=== PATIENT | female | born 1970 | race Caucasian/White ===

== ENCOUNTER → 2016-02-29 | Outpatient (CLI) | payer OTHER ==
--- NOTE | 2016-02-29 14:02 | RAD ---
EXAM DESCRIPTION: XR ANKLE 3 OR MORE VIEWS CLINICAL HISTORY: 45 y/o ,F, PAIN IN RIGHT ANKLE AND JOINTS OF RIGHT FOOT COMPARISON: None. IMPRESSION: Three views right ankle demonstrate ORIF of medial and lateral malleoli fractures. Hardware is stable in position. There may be osteolysis verses Mach effect surrounding the medial malleolus screws. This will be followed on subsequently ordered studies. Electronically signed by: Hussein Hauser MD 02/29/2016 14:01
--- NOTE | 2016-02-29 14:48 | RAD ---
EXAM DESCRIPTION: XR ANKLE 3 OR MORE VIEWS CLINICAL HISTORY: 45 y/o ,F, FX OF ANKLE,POST CAST REMOVAL COMPARISON: Casting views from same day IMPRESSION: Casting material has been removed. ORIF of bilateral malleoli. The Mach effect surrounding the medial malleoli screws have resolved. No evidence of osteolysis. Minimal periostitis about the medial malleolus. All fractures have healed. No evidence of degenerative change of the subtalar joint or tibiotalar joint. Electronically signed by: Hussein Hauser MD 02/29/2016 14:46
== END ==
LOC: RAD 07:53
PROVIDERS: ATTEND Orthopaedic Surgery
DX: S82.91XD Unspecified fracture of right lower leg, subsequent encounter for closed fracture with routine healing (principal); M25.571 Pain in right ankle and joints of right foot; Z09 Encounter for follow-up examination after completed treatment for conditions other than malignant neoplasm

== ENCOUNTER → 2016-03-12 | Outpatient (CLI) | payer OTHER ==
--- NOTE | 2016-03-12 09:53 | RAD ---
EXAM DESCRIPTION: XR ANKLE 3 OR MORE VIEWS CLINICAL HISTORY: 45 y/o ,F, FX COMPARISON: February 29, 2016 IMPRESSION: ORIF of bilateral malleoli fractures. Hardware is in appropriate position. No evidence of hardware failure. Ankle mortise and syndesmosis are intact. Electronically signed by: Hussein Hauser MD 03/12/2016 09:52
== END ==
LOC: RAD 07:41
PROVIDERS: ATTEND Orthopaedic Surgery
DX: S82.91XD Unspecified fracture of right lower leg, subsequent encounter for closed fracture with routine healing (principal)

== ENCOUNTER → 2016-03-27 | Outpatient (CLI) | payer OTHER ==
--- NOTE | 2016-03-27 09:13 | RAD ---
EXAM DESCRIPTION: XR ANKLE 3 OR MORE VIEWS CLINICAL HISTORY: FX COMPARISON: March 12, 2016 FINDINGS: Again seen are postoperative changes in the medial malleolus and distal right fibula, unchanged from the prior study. No hardware complication is identified. There are old healed medial and lateral malleolar fractures. There is a questionable healed or healing posterior malleolar fracture, but this could also be related to superimposition artifact. The tibiotalar joint space and talar dome are well maintained. No new fracture or other significant interval change. IMPRESSION: Uncomplicated postoperative changes in the right ankle with old healed or healing right ankle fractures as detailed above. No new abnormality or other significant interval change. Electronically signed by: Everton Eastman DO 03/27/2016 09:11
== END | disposition home or self-care (01) ==
LOC: RAD 07:48
PROVIDERS: ATTEND Orthopaedic Surgery
DX: S82.91XD Unspecified fracture of right lower leg, subsequent encounter for closed fracture with routine healing (principal)

== ENCOUNTER 2016-04-03 16:32 | Emergency (ER) | payer OTHER ==
[2016-04-03 16:53] VITALS: TEMP 99.1
[2016-04-03] MEDS ORDERED: LACTATED RINGERS 1,000 ML IVS ONE (17:24)
--- NOTE | 2016-04-03 17:24 | ED.PDOC ---
History of Present Illness - General Chief Complaint: GI Problem Stated Complaint: diarrhea, RLE pain Time Seen by Provider: 04/03/16 16:40 Information Source: patient, RN notes reviewed Exam Limitations: no limitations - History of Present Illness Initial Comments: She stated that she ate pizza 4 days ago in [place] a day later she started having watery diarrhea which she stated not better despite imodium.No fever no vomiting no ill contact. Also with right sided abdominal pain. Pain Radiation: no radiation Quality: cramping Timing/Duration: other - 4 days ago Improving Factors: nothing Worsening Factors: nothing Associated Symptoms: denies symptoms Review of Systems - Review of Systems Constitutional: States: no symptoms reported EENTM: States: no symptoms reported Respiratory: States: no symptoms reported Cardiology: States: no symptoms reported Gastrointestinal/Abdominal: States: see HPI Genitourinary: States: no symptoms reported Musculoskeletal: States: no symptoms reported Skin: States: no symptoms reported Neurological: States: no symptoms reported Endocrine: States: no symptoms reported Hematologic/Lymphatic: States: no symptoms reported Past Medical History (General) - Patient Medical History Hx Other PMH: Yes - bipolar,fbromyalgia,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,endometrios - Vaccination History Hx Tetanus, Diphtheria Vaccination: No Hx Influenza Vaccination: No Hx Pneumococcal Vaccination: No - Social History Hx Tobacco Use: Yes Hx Alcohol Use: No Hx Substance Use: No Hx Substance Use Treatment: No Hx Depression: No - Activities of Daily Living Hospice Agency (if applicable):: None - Female History Patient is a Female of Child Bearing Age (10 -59 yrs old): No Patient : No Family Medical History - Family History Mother Family History: Unknown Hx Family Hypertension: Yes Hx Cardiac Disease: Yes Hx Family Cancer: Yes - thyroid-sister Physical Exam - Physical Exam General Appearance: Alert, Comfortable, No apparent distress Eyes, Ears, Nose, Throat Exam: PERRL/EOMI, normal ENT inspection, TMs normal Neck: non-tender, full range of motion, supple, normal inspection Respiratory: chest non-tender, lungs clear, normal breath sounds, no respiratory distress Cardiovascular/Chest: normal peripheral pulses, regular rate, rhythm, no edema, no gallop, no murmur Peripheral Pulses: No deficit Gastrointestinal/Abdominal: normal bowel sounds, non tender, soft, no organomegaly Back Exam: normal inspection, no CVA tenderness, no vertebral tenderness Extremity: normal range of motion, non-tender, normal inspection Neurologic: alert, normal mood/affect, oriented x 3 Skin Exam: normal color, warm/dry Lymphatic: no adenopathy Progress - Results/Orders Results/Orders: 04/03/16 17:24 Lactated Ringers [Lr] 1,000 ml IVS ONCE URINALYSIS Stat Laboratory Results WBC 6.9 K/mm3 (4.8-10.8) 04/03/16 17: RBC 4.22 M/mm3 (4.20-5.40) 04/03/16 17: Hgb 12.4 gm/dL (12.0-16.0) 04/03/16: Hct 38.5 % (36.0-47.0) 04/03/16: MCV 91.3 fl (81.0-99.0) 04/03/16: MCH 29.5 pg (27.0-31.0) 04/03/16: MCHC 32.3 g/dL (33.0-37.0) L 04/03/16: RDW 13.7 % (11.5-14.5) 04/03/16: Plt Count 268 K/mm3 (130-400) 04/03/16 17: MPV 8.7 fl (7.40-10.4) 04/03/16 17: Absolute Neuts (auto) 3.70 K/uL (1.8-6.8) 04/03/16: Absolute Lymphs (auto) 2.40 K/uL (1.0-3.4) 04/03/16 17: Absolute Monos (auto) 0.60 K/uL (0.2-0.8) 04/03/16: Absolute Eos (auto) 0.10 K/uL (0.0-0.4) 04/03/16: Absolute Basos (auto) 0.00 K/uL (0.0-0.1) 04/03/16 17: Neutrophils % 54.3 % (42.0-78.0) 04/03/16: Lymphocytes % 34.5 % (20.0-50.0) 04/03/16 17:24 Monocytes % 8.6 % (2.0-9.0) 04/03/16 17:24 Eosinophils % 2.2 % (1.0-5.0) 04/03/16 17:24 Basophils % 0.4 % (0.0-2.0) 04/03/16 17:24 Sodium 141 mmol/L (135-145) 04/03/16 17:24 Potassium 4.3 mmol/L (3.6-5.0) 04/03/16 17:24 Chloride 104 mmol/L (101-111) 04/03/16 17:24 Carbon Dioxide 30 mmol/L (21-31) 04/03/16 17:24 Anion Gap 11.3 (12-18) L 04/03/16 17:24 BUN 10 mg/dL (7-18) 04/03/16 17:24 Creatinine 0.67 mg/dL (0.6-1.3) 04/03/16 17:24 BUN/Creatinine Ratio 14.9 (10-20) 04/03/16 17:24 Random Glucose 102 mg/dL (70-105) 04/03/16 17:24 Serum Osmolality 280.5 mOsm/L (275-295) 04/03/16 17:24 Calcium 8.9 mg/dL (8.4-10.2) 04/03/16 17:24 Total Bilirubin 0.3 mg/dL (0.2-1.0) 04/03/16 17:24 AST 21 IU/L (10-42) 04/03/16 17:24 ALT 23 IU/L (10-60) 04/03/16 17:24 Alkaline Phosphatase 95 IU/L (42-121) 04/03/16 17:24 Serum Total Protein 7.0 gm/dL (6.4-8.2) 04/03/16 17:24 Albumin 4.2 g/dl (3.2-5.5) 04/03/16 17:24 Globulin 2.8 gm/dL (2.3-3.5) 04/03/16 17:24 Albumin/Globulin Ratio 1.5 (1.1-1.9) 04/03/16 17:24 Departure - Departure Clinical Impression: Diarrhea, Abdominal cramps Time of Disposition: 18:21 Disposition: Discharge to Home or Self Care Condition: Good Departure Forms: ED Discharge - Pt. Copy, Patient Portal Self Enrollment Instructions: Probiotics May Decrease Intensity and Duration of Diarrhea Due to Infection, Diarrhea Referrals: Agustina Nunez NP [Primary Care Provider] - 1-2 Weeks Prescriptions: Hyoscyamine Sulfate [Levsin] 0.125 mg PO Q6HRS PRN #30 tab PRN Reason: Diarrhea Home Medications: Ambulatory Orders Hyoscyamine Sulfate [Levsin] 0.125 mg PO Q6HRS PRN #30 tab 04/03/16 Lamotrigine [Lamictal] 200 mg PO DAILY 04/03/16 hydrOXYzine PAMOATE [Vistaril] 25 mg PO BID 04/03/16 Additional Instructions: FOLLOW UP WITH PRIMARY MD PATIENT NEED TO CALL FOR APPOINTMENT AVOID GREASY, SPICY FOODS UNTIL BETTER
[2016-04-03 18:36] VITALS: BP 144/87; O2SAT 98
== END 2016-04-03 18:35 | disposition home or self-care (01) ==
LOC: ER 16:32
DX: R19.7 Diarrhea, unspecified (principal); R10.9 Unspecified abdominal pain; F31.9 Bipolar disorder, unspecified; M79.7 Fibromyalgia; Z87.891 Personal history of nicotine dependence
CPT/HCPCS: 80053; 85025; J7120

== ENCOUNTER → 2016-04-10 | Outpatient (CLI) | payer OTHER ==
--- NOTE | 2016-04-10 10:23 | RAD ---
EXAM DESCRIPTION: Ankle,Right 3 Views CLINICAL HISTORY: 45 yearsFemale, right ankle pain, fracture. COMPARISON: None. IMPRESSION: Increasing soft tissue swelling about the ankle on today's study. No additional new findings on today's study. No evidence of right ankle fracture. No evidence of osteolysis or hardware failure. ORIF of the medial and lateral malleoli fractures. Electronically signed by: Hussein Hauser MD 04/10/2016 10:22 AM DUTY OFFICER
== END | disposition home or self-care (01) ==
LOC: RAD 07:33
PROVIDERS: ATTEND Orthopaedic Surgery
DX: S82.91XD Unspecified fracture of right lower leg, subsequent encounter for closed fracture with routine healing (principal)

== ENCOUNTER → 2016-04-28 | Outpatient (CLI) | payer OTHER ==
--- NOTE | 2016-04-28 09:19 | RAD ---
EXAM DESCRIPTION: Ankle,Right 3 Views CLINICAL HISTORY: FX COMPARISON: April 10, 2016 IMPRESSION: 3 views of the right ankle show lateral plate and screw fixation of a distal fibular fracture. No change in appearance of the hardware compared to previous exam. Fracture lines are not visible. 2 orthopedic screws fixating the medial malleolus are seen without evidence of hardware failure or obvious loosening. Evidence of healed fracture is noted. The degree of soft tissue swelling around the ankle is decreased from previous. Ankle mortise appears maintained. Probable healed fracture of the posterior distal tibia is again seen. Electronically signed by: Jose Tate MD 04/28/2016 9:18 AM CDT
== END | disposition home or self-care (01) ==
LOC: RAD 07:14
PROVIDERS: ATTEND Orthopaedic Surgery
DX: S82.301G Unspecified fracture of lower end of right tibia, subsequent encounter for closed fracture with delayed healing (principal)

== ENCOUNTER → 2016-05-12 | Outpatient (CLI) | payer OTHER ==
--- NOTE | 2016-05-12 08:30 | RAD ---
Study: Three views of the Right Ankle. Indication: FX Comparison: April 28, 2016. Impression: Stable postsurgical changes with suspected healed medial malleolar and distal fibular fractures. Small tibiotalar joint effusion. A healed fracture posterior malleolus noted. Mild osteopenia. Mild soft tissue swelling. Electronically signed by: Frederick Ladd MD 05/12/2016 8:29 AM CDT
== END | disposition home or self-care (01) ==
LOC: RAD 07:19
PROVIDERS: ATTEND Orthopaedic Surgery
DX: S82.91XD Unspecified fracture of right lower leg, subsequent encounter for closed fracture with routine healing (principal)

== ENCOUNTER → 2016-05-26 | Outpatient (CLI) | payer OTHER ==
--- NOTE | 2016-05-26 17:13 | MAM ---
History: Well woman exam. Date of exam: 05/26/2016 Services provided: Bilateral full field digital screening mammography. CAD, the images were reviewed with R2 computer aided detection. FINDINGS: Glandular tissue is scattered glandular contour with increased mammographic density. No prior study is currently available for comparison. Single view mammographic asymmetry axillary tail right breast has a nodular contour. No clustered microcalcifications or region of architectural distortion is noted. IMPRESSION: Incomplete study Recommendation: Additional views right breast with true lateral, axillary tail views and exaggerated lateral craniocaudal projection view. Directed ultrasound if indicated clinically. BIRAD CATEGORY: 0 INCOMPLETE Electronically signed by: Joanne Wu MD 05/26/2016 5:11 PM CDT
== END | disposition home or self-care (01) ==
LOC: MAMMO 09:20
PROVIDERS: ATTEND Nurse Practitioner Family
DX: Z12.31 Encounter for screening mammogram for malignant neoplasm of breast (principal)

== ENCOUNTER → 2016-05-27 | Outpatient (CLI) | payer OTHER | END | disposition home or self-care (01) | LOC: YCFC.O 07:17 | PROVIDERS: ATTEND Nurse Practitioner Family | DX: R19.7 Diarrhea, unspecified (principal) ==

== ENCOUNTER 2016-06-01 16:44 | Emergency (ER) | payer OTHER ==
[2016-06-01 16:58] VITALS: BP 135/81; TEMP 98.3; O2SAT 97
--- NOTE | 2016-06-01 17:07 | ED.PDOC ---
History of Present Illness - General Chief Complaint: Back Pain or Injury Stated Complaint: back pain Time Seen by Provider: 06/01/16 17:04 Source: patient, RN notes reviewed, Vital Signs reviewed Exam Limitations: no limitations - History of Present Illness Initial Comments: Patient reports 3 days ago she was getting down a heavy box of glasses and pulled a muscle under her right shoulder blade. Since then she has been having pain and muscle spasms. Pain is worse with movement and with deep breathing. Timing/Duration: days - 3 Quality/Severity: moderate, other - muscle spasm Back Pain Location: T-spine, paraspinous muscles Method of Injury/Prior Injury: twisted Improving Factors: rest Worsening Factors: movement Associated Symptoms: muscle spasms Allergies/Adverse Reactions: Allergies Clarithromycin [From Biaxin] Allergy (Verified 04/03/16 16:53) Home Medications: Ambulatory Orders Lamotrigine [Lamictal] 200 mg PO DAILY 04/03/16 hydrOXYzine PAMOATE [Vistaril] 25 mg PO BID 04/03/16 Cyclobenzaprine HCl [Flexeril] 5 mg PO Q8HRS PRN #12 tab 06/01/16 [place] Carbonate 300 mg PO BID 06/01/16 Naproxen [Naprosyn] 500 mg PO BID #40 tab 06/01/16 Paroxetine HCl [Paxil] 40 mg PO DAILY 06/01/16 Review of Systems - Review of Systems Constitutional: States: no symptoms reported Respiratory: States: no symptoms reported Cardiology: States: no symptoms reported Musculoskeletal: States: back pain, muscle pain - and spasm under her R shoulder blade Skin: States: no symptoms reported Neurological: States: no symptoms reported. Denies: numbness, paresthesia, tingling, weakness Past Medical History (General) - Patient Medical History Hx Congestive Heart Failure: No Hx Diabetes: No - Vaccination History Hx Tetanus, Diphtheria Vaccination: No Hx Influenza Vaccination: No Hx Pneumococcal Vaccination: No - Social History Hx Tobacco Use: Yes Hx Alcohol Use: No Hx Substance Use: No Hx Substance Use Treatment: No Hx Depression: No - Female History Patient : No Family Medical History - Family History Mother Family History: Unknown Hx Family Hypertension: Yes Hx Cardiac Disease: Yes Hx Family Cancer: Yes - thyroid-sister Physical Exam - Physical Exam General Appearance: Alert, Comfortable, No apparent distress, Well Developed, Well Groomed, Well Hydrated, Well Nourished Neck Exam: non-tender, full range of motion, normal alignment, normal inspection Cardiovascular/Respiratory: regular rate, rhythm, no M/R/G, normal breath sounds , no respiratory distress Back Exam: no CVA tenderness, no vertebral tenderness, muscle spasm - Right mid thoracic paraspinous muscles. Extremity Exam: no evidence of injury, normal range of motion Neurologic: no motor/sensory deficits, alert, normal mood/affect, oriented x 3 Skin Exam: normal color, warm/dry Comments: Vital Signs - 24 hr 06/01/16 16:54 Temperature 98.3 F Pulse Rate [ 96 H Left Brachial] Respiratory 20 Rate Blood Pressure 135/81 [Left Arm] O2 Sat by Pulse 97 Oximetry Progress - Progress Progress: 06/01/16 17:09 Will give IM dose of Toradol here and d/c home with Rx for flexeril and Naprosyn. Departure - Departure Clinical Impression: Strain of thoracic paraspinal muscles excluding T1 and T2 levels Qualifiers: Encounter type: initial encounter Qualified Code(s): S29.012A - Strain of muscle and tendon of back wall of thorax, initial encounter Time of Disposition: 17:10 Disposition: Discharge to Home or Self Care Condition: Good Departure Forms: ED Discharge - Pt. Copy, Patient Portal Self Enrollment Instructions: DI for Back Strain or Sprain Diet: resume usual diet Activity: increase activity as tolerated Referrals: Agustina Nunez NP [Primary Care Provider] - 1-2 Weeks Prescriptions: Cyclobenzaprine HCl [Flexeril] 5 mg PO Q8HRS PRN #12 tab PRN Reason: Muscle Spasms Naproxen [Naprosyn] 500 mg PO BID #40 tab Home Medications: Ambulatory Orders Lamotrigine [Lamictal] 200 mg PO DAILY 04/03/16 hydrOXYzine PAMOATE [Vistaril] 25 mg PO BID 04/03/16 Cyclobenzaprine HCl [Flexeril] 5 mg PO Q8HRS PRN #12 tab 06/01/16 [place] Carbonate 300 mg PO BID 06/01/16 Naproxen [Naprosyn] 500 mg PO BID #40 tab 06/01/16 Paroxetine HCl [Paxil] 40 mg PO DAILY 06/01/16
[2016-06-01] MEDS: KETOROLAC TROMETHAMINE INJ 60 MG/2 ML VIAL IM ONE (17:08)
== END 2016-06-01 17:31 | disposition home or self-care (01) ==
LOC: ER 16:44
DX: S29.012A Strain of muscle and tendon of back wall of thorax, initial encounter (principal); Z87.891 Personal history of nicotine dependence; Z79.899 Other long term (current) drug therapy; Z82.49 Family history of ischemic heart disease and other diseases of the circulatory system; Z88.8 Allergy status to other drugs, medicaments and biological substances; X50.0XXA Overexertion from strenuous movement or load, initial encounter; Y92.9 Unspecified place or not applicable

== ENCOUNTER → 2016-06-19 | Outpatient (CLI) | payer OTHER ==
--- NOTE | 2016-06-19 15:47 | MAM ---
History: Mammographic asymmetry on baseline study axillary tail right breast. DATE OF SERVICE: 06/19/2016 Services provided: Full field digital diagnostic right mammography. FINDINGS: True lateral, exaggerated lateral craniocaudal and axillary tail views are obtained and compared with baseline study from 05/26. Nodular glandular parenchymal pattern is demonstrated with accessory tissue in the axillary tail of the right breast. No persistent mammographic abnormality is noted corresponding to this area. IMPRESSION: Benign exam. No mammographic evidence for malignancy in the right breast. Recommendation: Routine annual mammography. Findings and recommendations were communicated to the patient. BIRAD CATEGORY: 2 BENIGN Electronically signed by: Joanne Wu MD 06/19/2016 3:47 PM CDT
== END | disposition home or self-care (01) ==
LOC: MAMMO 14:24
PROVIDERS: ATTEND Nurse Practitioner Family
DX: R92.8 Other abnormal and inconclusive findings on diagnostic imaging of breast (principal)

== ENCOUNTER → 2016-06-26 | Outpatient (CLI) | payer OTHER ==
--- NOTE | 2016-06-26 16:47 | RAD ---
EXAM DESCRIPTION: Ankle,Right 3 Views CLINICAL HISTORY: 45 years Female, CLOSED FX OF ANKLE COMPARISON: May 12, 2016 FINDINGS: Again seen are postoperative changes in the right ankle without apparent hardware complication. No fracture plane is visualized. The tibiotalar joint space and talar dome are well-maintained. There is a possible small right ankle joint effusion. IMPRESSION: Uncomplicated postoperative changes in the right ankle with a possible small right ankle joint effusion. Electronically signed by: Everton Eastman MD 06/26/2016 4:47 PM CDT
== END | disposition home or self-care (01) ==
LOC: RAD 09:50
PROVIDERS: ATTEND Orthopaedic Surgery
DX: S82.91XD Unspecified fracture of right lower leg, subsequent encounter for closed fracture with routine healing (principal)

== ENCOUNTER 2016-08-31 16:13 | Emergency (ER) | payer OTHER ==
[2016-08-31] MEDS ORDERED: MEROPENEM 1 GM in SODIUM CHL 0.9% 50ML MIN-BAG+ 50 ML IVPB ONE (16:29)
--- NOTE | 2016-08-31 16:39 | ED.PDOC ---
History of Present Illness - General Chief Complaint: Dental/Mouth Stated Complaint: toohache/gum selling Time Seen by Provider: 08/31/16 16:25 Source: patient Exam Limitations: no limitations - History of Present Illness Initial Comments: Shannon Caldwell 45 y/o female with multiple decayed teeth seen today with tooth ache and stating gums starting to swell and painful. Timing/Duration: other - 4 days ago Severity: moderate EENT Location: dental Prearrival Treatment: no prearrival treatment Improving Factors: nothing Worsening Factors: other - chewing Associated Symptoms: tooth pain Allergies/Adverse Reactions: Allergies Clarithromycin [From Biaxin] Allergy (Verified 04/03/16 16:53) Home Medications: Ambulatory Orders Lamotrigine [Lamictal] 200 mg PO DAILY 04/03/16 hydrOXYzine PAMOATE [Vistaril] 25 mg PO BID 04/03/16 Cyclobenzaprine HCl [Flexeril] 5 mg PO Q8HRS PRN #12 tab 06/01/16 [place] Carbonate 300 mg PO BID 06/01/16 Naproxen [Naprosyn] 500 mg PO BID #40 tab 06/01/16 Paroxetine HCl [Paxil] 40 mg PO DAILY 06/01/16 Amoxicillin [Amoxil] 1,000 mg PO BID #30 cap 08/31/16 Tramadol HCl [Tramadol HCl ER] 100 mg PO TID #10 cap 08/31/16 Review of Systems - Review of Systems Constitutional: States: no symptoms reported EENTM: States: see HPI Respiratory: States: no symptoms reported Cardiology: States: no symptoms reported Gastrointestinal/Abdominal: States: no symptoms reported Genitourinary: States: no symptoms reported Musculoskeletal: States: no symptoms reported Skin: States: no symptoms reported Neurological: States: no symptoms reported Past Medical History (General) - Patient Medical History Hx Congestive Heart Failure: No Hx Diabetes: No - Vaccination History Hx Tetanus, Diphtheria Vaccination: No Hx Influenza Vaccination: No Hx Pneumococcal Vaccination: No - Social History Hx Tobacco Use: Yes Hx Alcohol Use: No Hx Substance Use: No Hx Substance Use Treatment: No Hx Depression: No - Female History Patient : No Family Medical History - Family History Mother Family History: Unknown Hx Family Asthma: Yes - copd-mom Hx Family Hypertension: Yes - sister Hx Cardiac Disease: Yes Hx Family Cancer: Yes - thyroid-sister Physical Exam - Physical Exam General Appearance: Alert, Comfortable, No apparent distress Eye Exam: bilateral normal Ear Exam: bilateral ear: auricle normal, canal normal, TM normal Nasal Exam: normal inspection Throat Exam: normal mouth inspection, dental tenderness, other - multiple decayed teeth incisors Neck: non-tender, full range of motion, supple Cardiovascular/Respiratory: regular rate, rhythm, no M/R/G, normal peripheral pulses, normal breath sounds Abdominal Exam: non-tender, no organomegaly Neurologic: alert, oriented x 3 Skin Exam: normal color, warm/dry Departure - Departure Clinical Impression: Dental caries extending into pulp, Gingival and periodontal disease Time of Disposition: 16:42 Disposition: Discharge to Home or Self Care Condition: Good Instructions: DI for Tooth Decay Diet: other - soft diet until better Referrals: Agustina Nunez NP [Primary Care Provider] - 1-2 Weeks Prescriptions: Amoxicillin [Amoxil] 1,000 mg PO BID #30 cap Tramadol HCl [Tramadol HCl ER] 100 mg PO TID #10 cap Home Medications: Ambulatory Orders Lamotrigine [Lamictal] 200 mg PO DAILY 04/03/16 hydrOXYzine PAMOATE [Vistaril] 25 mg PO BID 04/03/16 Cyclobenzaprine HCl [Flexeril] 5 mg PO Q8HRS PRN #12 tab 06/01/16 [place] Carbonate 300 mg PO BID 06/01/16 Naproxen [Naprosyn] 500 mg PO BID #40 tab 06/01/16 Paroxetine HCl [Paxil] 40 mg PO DAILY 06/01/16 Amoxicillin [Amoxil] 1,000 mg PO BID #30 cap 08/31/16 Tramadol HCl [Tramadol HCl ER] 100 mg PO TID #10 cap 08/31/16 Additional Instructions: NEED TO MAKE APPOINTMENT WITH [facility] [place] [address] phone [phone]
[2016-08-31] MEDS ORDERED: CLINDAMYCIN PHOSPHATE 150 MG/ML VIAL IM ONE (16:56)
[2016-08-31] MEDS ORDERED: CLINDAMYCIN HCL CAP 150 MG CAP PO ONE (16:56)
[2016-08-31 17:43] VITALS: TEMP 98.9
[2016-08-31 17:47] VITALS: BP 148/68; O2SAT 94
== END 2016-08-31 17:39 | disposition home or self-care (01) ==
LOC: ER 16:13
DX: K02.9 Dental caries, unspecified (principal); K06.9 Disorder of gingiva and edentulous alveolar ridge, unspecified; Z87.891 Personal history of nicotine dependence; Z88.8 Allergy status to other drugs, medicaments and biological substances; Z79.899 Other long term (current) drug therapy

== ENCOUNTER 2016-10-21 16:12 | Emergency (ER) | payer OTHER ==
--- NOTE | 2016-10-21 16:42 | ED.PDOC ---
History of Present Illness - General Chief Complaint: Neck Injury/Pain Stated Complaint: Injury 1 month ago, now having neck/head/back pain Time Seen by Provider: 10/21/16 16:42 Source: patient Exam Limitations: no limitations - History of Present Illness Initial Comments: Shannon Caldwell 45 y/o female stated that she had dull left sided neck pains after she threw a heavy trash bag backwards on the trash bin at work one month ago and could not remember date.and since then having above symptoms taking nsaids, and icy hot.Denies bowel or bladder dysfunction non radiating. Timing/Duration: constant - able to tolerate and go to work, other - 4 weeks Severity: moderate Improving Factors: movement Worsening Factors: rest Associated Symptoms: denies symptoms Allergies/Adverse Reactions: Allergies Clarithromycin [From Biaxin] Allergy (Verified 08/31/16 17:47) Vomitting Home Medications: Ambulatory Orders Lamotrigine [Lamictal] 200 mg PO DAILY 04/03/16 hydrOXYzine PAMOATE [Vistaril] 25 mg PO BID 04/03/16 Cyclobenzaprine HCl [Flexeril] 5 mg PO Q8HRS PRN #12 tab 06/01/[address] [place] Carbonate 300 mg PO BID 06/01/16 Naproxen [Naprosyn] 500 mg PO BID #40 tab 06/01/16 Paroxetine HCl [Paxil] 40 mg PO DAILY 06/01/16 Amoxicillin [Amoxil] 1,000 mg PO BID #30 cap 08/31/16 Tramadol HCl [Tramadol HCl ER] 100 mg PO TID #10 cap 08/31/16 Methocarbamol [Robaxin] 750 mg PO BID #20 tab 10/21/16 Review of Systems - Review of Systems Constitutional: States: no symptoms reported EENTM: States: no symptoms reported Respiratory: States: no symptoms reported Cardiology: States: no symptoms reported Gastrointestinal/Abdominal: States: no symptoms reported Genitourinary: States: no symptoms reported Musculoskeletal: States: see HPI Past Medical History (General) - Patient Medical History Hx Stroke: No Hx Congestive Heart Failure: No Hx Diabetes: No Surgical History: other - ankle - Vaccination History Hx Tetanus, Diphtheria Vaccination: No Hx Influenza Vaccination: No Hx Pneumococcal Vaccination: No - Social History Hx Tobacco Use: Yes Hx Alcohol Use: No Hx Substance Use: No Hx Substance Use Treatment: No Hx Depression: No - Female History Hx Last Menstrual Period: 10/10/16 Patient : No Family Medical History - Family History Mother Family History: Unknown Living Status: Hx Family Asthma: Yes - copd-mom Hx Family Hypertension: Yes - sister Hx Cardiac Disease: Yes Hx Family Cancer: Yes - thyroid-sister Physical Exam - Physical Exam General Appearance: Alert, Anxious, No apparent distress Eye Exam: bilateral normal Ears, Nose, Throat: hearing grossly normal, normal ENT inspection Neck: limited range of motion - left lateral flexion -muscle spasm, other - no midline tenderness Respiratory: chest non-tender, lungs clear Cardiovascular/Chest: normal peripheral pulses, regular rate, rhythm, no murmur Peripheral Pulses: radial,right: 1+, radial,left: 1+ Gastrointestinal/Abdominal: normal bowel sounds, non tender, soft, no organomegaly Back Exam: no CVA tenderness, no vertebral tenderness Extremity: no pedal edema, no calf tenderness Neurologic: no motor/sensory deficits, alert, oriented x 3 Skin Exam: normal color, warm/dry Lymphatic: no adenopathy Progress - EKG/XRAY/CT XRAY: c-spine - degenerative changes c-spine Departure - Departure Clinical Impression: Neck pain on left side, Muscle spasm Time of Disposition: 17:35 Disposition: Discharge to Home or Self Care Condition: Good Departure Forms: ED Discharge - Pt. Copy, Patient Portal Self Enrollment Instructions: DI for Neck Pain Referrals: Agustina Nunez NP [Primary Care Provider] - 1-2 Weeks Prescriptions: Methocarbamol [Robaxin] 750 mg PO BID #20 tab Home Medications: Ambulatory Orders Lamotrigine [Lamictal] 200 mg PO DAILY 04/03/16 hydrOXYzine PAMOATE [Vistaril] 25 mg PO BID 04/03/16 Cyclobenzaprine HCl [Flexeril] 5 mg PO Q8HRS PRN #12 tab 06/01/[address] [place] [address] Carbonate 300 mg PO BID 06/01/16 Naproxen [Naprosyn] 500 mg PO BID #40 tab 06/01/16 Paroxetine HCl [Paxil] 40 mg PO DAILY 06/01/16 Amoxicillin [Amoxil] 1,000 mg PO BID #30 cap 08/31/16 Tramadol HCl [Tramadol HCl ER] 100 mg PO TID #10 cap 08/31/16 Methocarbamol [Robaxin] 750 mg PO BID #20 tab 10/21/16 Additional Instructions: Follow up with primary md 2016 call for appointment; May take ALEVE(over the counter) one tablet 3x a day as needed for pain
[2016-10-21] MEDS ORDERED: ORPHENADRINE CITRATE 30 MG/ML AMP IM ONE (16:57)
[2016-10-21] MEDS ORDERED: KETOROLAC TROMETHAMINE INJ 30 MG/ML VIAL IM ONE (16:57)
--- NOTE | 2016-10-21 17:21 | RAD ---
EXAM DESCRIPTION: Cervical Spine,3 Views CLINICAL HISTORY: 45 years Female, pain COMPARISON: None. FINDINGS: Three views of the cervical spine demonstrate normal alignment with mild degenerative spurring anteriorly and mild facet arthropathy. No fracture or dislocation or soft tissue swelling is seen. No cervical ribs are noted in the apical pulmonary regions are normal. IMPRESSION: Mild degenerative changes of the cervical spine. Electronically signed by: Peter Blanco MD 10/21/2016 5:19 PM CDT
[2016-10-21 17:39] VITALS: O2SAT 100
[2016-10-21 17:53] VITALS: BP 139/85; TEMP 98.4
== END 2016-10-21 17:51 | disposition home or self-care (01) ==
LOC: ER 16:12
DX: M54.2 Cervicalgia (principal); M62.838 Other muscle spasm; Z87.891 Personal history of nicotine dependence; Z88.3 Allergy status to other anti-infective agents; Z79.899 Other long term (current) drug therapy
CPT/HCPCS: 72040; J1885; J2360

== ENCOUNTER 2016-10-30 07:21 | Emergency (ER) | payer OTHER ==
[2016-10-30 07:55] VITALS: BP 128/85; TEMP 98.8; O2SAT 86
--- NOTE | 2016-10-30 08:00 | ED.PDOC ---
History of Present Illness - General Chief Complaint: Neck Injury/Pain Stated Complaint: left neck pain Time Seen by Provider: 10/30/16 07:29 Source: patient Exam Limitations: no limitations - History of Present Illness Initial Comments: the patientis a 45-year-old female presenting to the emergency room secondary to persistent left neck pain since 3 weeks ago The patient was seen a couple of weeks ago and had a x-ray of her cervical spine which was essentially normal. The patient has had some persistent left lateral posterior neck discomfort extending down to her shoulder. It is worse at night when she is not moved. She has been getting some mild tension headaches. She reports that she has been doing some stretching exercises. She reports anti- inflammatories don't help very much. No focal neurological changes. The initiating injury was more of a strain injury rather than a blunt trauma. No paresthesias down the left arm. No incontinence. No weakness. Timing/Duration: unsure Severity: mild Improving Factors: nothing Worsening Factors: movement Associated Symptoms: denies symptoms Allergies/Adverse Reactions: Allergies Clarithromycin [From Biaxin] Allergy (Verified 08/31/16 17:47) Vomitting Home Medications: Ambulatory Orders Lamotrigine [Lamictal] 200 mg PO DAILY 04/03/16 hydrOXYzine PAMOATE [Vistaril] 25 mg PO BID 04/03/16 Cyclobenzaprine HCl [Flexeril] 5 mg PO Q8HRS PRN #12 tab 06/01/16 [place] Carbonate 300 mg PO BID 06/01/16 Naproxen [Naprosyn] 500 mg PO BID #40 tab 06/01/16 Paroxetine HCl [Paxil] 40 mg PO DAILY 06/01/16 Amoxicillin [Amoxil] 1,000 mg PO BID #30 cap 08/31/16 Tramadol HCl [Tramadol HCl ER] 100 mg PO TID #10 cap 08/31/16 Methocarbamol [Robaxin] 750 mg PO BID #20 tab 10/21/16 Cyclobenzaprine HCl [Flexeril] 10 mg PO Q8HR PRN #20 tab 10/30/16 Review of Systems - Review of Systems Constitutional: States: no symptoms reported EENTM: States: no symptoms reported Respiratory: States: no symptoms reported Cardiology: States: no symptoms reported Gastrointestinal/Abdominal: States: no symptoms reported Genitourinary: States: no symptoms reported Musculoskeletal: States: neck pain Skin: States: no symptoms reported Neurological: States: headache Endocrine: States: no symptoms reported Hematologic/Lymphatic: States: no symptoms reported Past Medical History (General) - Patient Medical History Hx Stroke: No Hx Congestive Heart Failure: No Hx Diabetes: No Hx MRSA: Yes - Wound Infection, now healed - Vaccination History Hx Tetanus, Diphtheria Vaccination: No Hx Influenza Vaccination: No Hx Pneumococcal Vaccination: No - Social History Hx Tobacco Use: Yes Hx Chewing Tobacco Use: No Hx Alcohol Use: No Hx Substance Use: No Hx Substance Use Treatment: No Hx Depression: No Hx Physical Abuse: No Hx Emotional Abuse: No Hx Suspected Abuse: No - Female History Hx Last Menstrual Period: 10/10/16 Patient : No Family Medical History - Family History Mother Family History: Unknown Living Status: Hx Family Asthma: Yes - copd-mom Hx Family Hypertension: Yes - sister Hx Cardiac Disease: Yes Hx Family Cancer: Yes - thyroid-sister Physical Exam - Physical Exam General Appearance: Alert, Comfortable, No apparent distress Eye Exam: bilateral normal Ears, Nose, Throat: normal ENT inspection Neck: full range of motion, other - ild discomfort on palpation along the line of the left trapezius muscle superiorly. No gross deformity. No spinous process tenderness to palpation or step off. No bruising. Respiratory: no respiratory distress, no accessory muscle use Cardiovascular/Chest: normal peripheral pulses, no edema Peripheral Pulses: radial,right: 2+, radial,left: 2+, dorsalis pedis,right: 2+, dorsalis pedis,left: 2+ Gastrointestinal/Abdominal: non tender, soft Rectal Exam: deferred Back Exam: normal inspection, no CVA tenderness, no vertebral tenderness Extremity: normal range of motion, non-tender, normal inspection, no pedal edema , normal capillary refill Neurologic: ignition mechanic II-XII nml as tested, no motor/sensory deficits, alert, normal mood/affect, oriented x 3 Skin Exam: normal color Comments: Vital Signs - 24 hr 10/30/16 07:25 Temperature 98.8 F Pulse Rate [ 86 pulse ox] Respiratory 20 Rate Blood Pressure 128/85 [left brachial] O2 Sat by Pulse 86 L Oximetry Progress - Progress Progress: 10/30/16 08:01 the patient is a 45-year-old female with a left trapezius strain. She needs to do stretching exercises. Topical heat in the form of a heat pad or icy hot or Biofreeze may help. She can change to Aleve 2 tablets twice daily with food. She'll be written for Flexeril as needed for the next week. ER warnings were given. She should follow up for this with her primary care doctor next week. Departure - Departure Clinical Impression: Myofascial pain on left side Disposition: Discharge to Home or Self Care Condition: Fair Departure Forms: ED Discharge - Pt. Copy, Patient Portal Self Enrollment Instructions: DI for Neck Pain Diet: regular diet Activity: increase activity as tolerated Referrals: Agustina Nunez NP [Primary Care Provider] - 1-2 Weeks Prescriptions: Cyclobenzaprine HCl [Flexeril] 10 mg PO Q8HR PRN #20 tab PRN Reason: Muscle Spasms Home Medications: Ambulatory Orders Lamotrigine [Lamictal] 200 mg PO DAILY 04/03/16 hydrOXYzine PAMOATE [Vistaril] 25 mg PO BID 04/03/16 Cyclobenzaprine HCl [Flexeril] 5 mg PO Q8HRS PRN #12 tab 06/01/16 [place] Carbonate 300 mg PO BID 06/01/16 Naproxen [Naprosyn] 500 mg PO BID #40 tab 06/01/16 Paroxetine HCl [Paxil] 40 mg PO DAILY 06/01/16 Amoxicillin [Amoxil] 1,000 mg PO BID #30 cap 08/31/16 Tramadol HCl [Tramadol HCl ER] 100 mg PO TID #10 cap 08/31/16 Methocarbamol [Robaxin] 750 mg PO BID #20 tab 10/21/16 Cyclobenzaprine HCl [Flexeril] 10 mg PO Q8HR PRN #20 tab 10/30/16 Additional Instructions: the patient is a 45-year-old female with a left trapezius strain. She needs to do stretching exercises. Topical heat in the form of a heat pad or icy hot or Biofreeze may help. She can change to Aleve 2 tablets twice daily with food. She'll be written for Flexeril as needed for the next week. ER warnings were given. She should follow up for this with her primary care doctor next week.
== END 2016-10-30 08:12 | disposition home or self-care (01) ==
LOC: ER 07:21
DX: M54.2 Cervicalgia (principal); Z86.14 Personal history of Methicillin resistant Staphylococcus aureus infection; Z88.8 Allergy status to other drugs, medicaments and biological substances; Z79.899 Other long term (current) drug therapy; Z87.891 Personal history of nicotine dependence

== ENCOUNTER 2016-11-03 22:14 | Emergency (ER) | payer OTHER ==
[2016-11-03 22:31] VITALS: O2SAT 100
[2016-11-03] MEDS: KETOROLAC TROMETHAMINE INJ 60 MG/2 ML VIAL IM ONE (22:53)
[2016-11-03] MEDS: CYCLOBENZAPRINE HCL 10 MG TAB PO ONE (22:53)
[2016-11-03] MEDS: methylPREDNISolone SODIUM SUC 125 MG/2 ML VIAL IM ONE (22:53)
--- NOTE | 2016-11-03 22:55 | ED.PDOC ---
History of Present Illness - General Chief Complaint: Neck Injury/Pain Stated Complaint: neck pain Time Seen by Provider: 11/03/16 22:36 Source: patient, RN notes reviewed, Vital Signs reviewed Exam Limitations: no limitations - History of Present Illness Initial Comments: Patient comes in with c/o of L neck pain. This is her 3rd ER visit for neck pain. Reports it improved with muscle relaxers but then worsens again. Originally saw her PCP when injury originally happened ~ 6 weeks ago but has not followed up again. She also is having a lot of nasal congestion w/ runny nose for 2 days. She took OTC allergy medication w/o improvement. No fever or chills. No TAYLOR or cough. Timing/Duration: intermittent - over past 6 weeks for neck, 2 days for runny nose and congestion Severity: moderate Improving Factors: medication Worsening Factors: movement Associated Symptoms: headaches Allergies/Adverse Reactions: Allergies Clarithromycin [From Biaxin] Allergy (Verified 08/31/16 17:47) Vomitting Home Medications: Ambulatory Orders Lamotrigine [Lamictal] 200 mg PO DAILY 04/03/16 hydrOXYzine PAMOATE [Vistaril] 50 mg PO BID 04/03/16 [place] Carbonate 300 mg PO QAM 06/01/16 Paroxetine HCl [Paxil] 40 mg PO DAILY 06/01/16 Methocarbamol [Robaxin] 750 mg PO BID #20 tab 10/21/16 Cyclobenzaprine HCl [Flexeril] 10 mg PO Q8HR PRN #20 tab 10/30/16 [place] Carbonate 600 mg PO DAILY 10/30/16 Cyclobenzaprine HCl [Flexeril] 10 mg PO BID PRN #10 tab 11/03/16 Review of Systems - Review of Systems Constitutional: States: no symptoms reported. Denies: chills, fever EENTM: States: nose congestion. Denies: ear pain, throat pain, mouth pain Respiratory: States: no symptoms reported. Denies: cough Cardiology: States: no symptoms reported Gastrointestinal/Abdominal: States: no symptoms reported Musculoskeletal: States: neck pain - L side muscle spasm and pain Skin: States: no symptoms reported Neurological: States: headache. Denies: numbness, paresthesia, tingling, weakness All other Systems: No Change from Baseline Past Medical History (General) - Patient Medical History Hx Stroke: No Hx Congestive Heart Failure: No Hx Diabetes: No Hx MRSA: Yes - Wound Infection, now healed - Vaccination History Hx Tetanus, Diphtheria Vaccination: No Hx Influenza Vaccination: No Hx Pneumococcal Vaccination: No Immunizations Up to Date: No - Social History Hx Tobacco Use: Yes Hx Chewing Tobacco Use: No Hx Alcohol Use: No Hx Substance Use: No Hx Substance Use Treatment: No Hx Depression: No Hx Physical Abuse: No Hx Emotional Abuse: No Hx Suspected Abuse: No - Female History Hx Last Menstrual Period: 10/10/16 Patient : No Family Medical History - Family History Mother Family History: Unknown Living Status: Hx Family Asthma: Yes - copd-mom Hx Family Hypertension: Yes - sister Hx Cardiac Disease: Yes Hx Family Cancer: Yes - thyroid-sister Physical Exam - Physical Exam General Appearance: Alert, Comfortable, No apparent distress, Well Developed, Well Groomed, Well Hydrated, Well Nourished Eye Exam: bilateral normal Ears, Nose, Throat: hearing grossly normal, normal pharynx, nasal congestion - with clear rhinorrhea, other - Normal ear canals and TM;s Neck: limited range of motion - due to pain, lymphadenopathy (R), lymphadenopathy (L), tender lateral - L posterior cervical muscle spasm and tenderness Respiratory: lungs clear, normal breath sounds, no respiratory distress, no accessory muscle use Cardiovascular/Chest: regular rate, rhythm, no gallop, no JVD, no murmur Extremity: normal range of motion, non-tender, normal inspection Neurologic: no motor/sensory deficits, alert, normal mood/affect, oriented x 3 Skin Exam: normal color, warm/dry Comments: Vital Signs 11/03/16 22:28 Temperature 97.6 F Pulse Rate [ 96 H Right] Respiratory 20 Rate Blood Pressure 145/80 [Left Arm] O2 Sat by Pulse 100 Oximetry Progress - Progress Progress: 11/03/16 22:58 Will give patient Toradol 60mg IM, Solu-medrol 125mg IM and Flexeril 10mg PO Advised OTC cold/sinus medications for URI symptoms Recommended follow up with PCP to get referral for physical therapy Departure - Departure Clinical Impression: Muscle spasm, Myofascial pain on left side, Viral upper respiratory infection Time of Disposition: 23:00 Disposition: Discharge to Home or Self Care Departure Forms: ED Discharge - Pt. Copy, Patient Portal Self Enrollment Instructions: DI for Neck Pain, DI for Cervical Muscle Strain, DI for Viral Upper Respiratory Infection -- Adult Diet: resume usual diet Activity: increase activity as tolerated Referrals: Agustina Nunez NP [Primary Care Provider] - 1-2 Days (Needs referral to physical therapy) Prescriptions: Cyclobenzaprine HCl [Flexeril] 10 mg PO BID PRN #10 tab PRN Reason: Muscle Spasms Home Medications: Ambulatory Orders Lamotrigine [Lamictal] 200 mg PO DAILY 04/03/16 hydrOXYzine PAMOATE [Vistaril] 50 mg PO BID 04/03/16 [place] Carbonate 300 mg PO QAM 06/01/16 Paroxetine HCl [Paxil] 40 mg PO DAILY 06/01/16 Methocarbamol [Robaxin] 750 mg PO BID #20 tab 10/21/16 Cyclobenzaprine HCl [Flexeril] 10 mg PO Q8HR PRN #20 tab 10/30/16 [place] Carbonate 600 mg PO DAILY 10/30/16 Cyclobenzaprine HCl [Flexeril] 10 mg PO BID PRN #10 tab 11/03/16 Additional Instructions: Over the counter cold/sinus medications Follow up with PCP to get referral to physical therapy
[2016-11-03 23:12] VITALS: BP 132/78; TEMP 98
== END 2016-11-03 23:12 | disposition home or self-care (01) ==
LOC: ER 22:14
DX: J06.9 Acute upper respiratory infection, unspecified (principal); M62.838 Other muscle spasm; M79.1 Myalgia; Z87.891 Personal history of nicotine dependence
CPT/HCPCS: J1885; J2930

== ENCOUNTER 2016-11-06 18:47 | Emergency (ER) | payer OTHER ==
--- NOTE | 2016-11-06 19:49 | ED.PDOC ---
History of Present Illness - General Chief Complaint: Neck Injury/Pain Stated Complaint: Neck pain x 2 months Time Seen by Provider: 11/06/16 19:36 Source: patient Exam Limitations: no limitations Additional Information: LEFT SIDED NECK PAIN FOR ABOUT 8 WEEKS. HAS BEEN SEEN IN THE ED THREE TIMES WITH SAME. SHE SEEMS TO HURT ON THE LEFT SIDE AND PAIN INCREASES UO ROTATION OF THE NECK, NO RADIATION, PAIN -09/18 - History of Present Illness Timing/Duration: other - 8 WEEKS Severity: moderate Worsening Factors: movement Associated Symptoms: denies symptoms Allergies/Adverse Reactions: Allergies Clarithromycin [From Biaxin] Allergy (Verified 08/31/16 17:47) Vomitting Home Medications: Ambulatory Orders Lamotrigine [Lamictal] 200 mg PO DAILY 04/03/16 hydrOXYzine PAMOATE [Vistaril] 50 mg PO BID 04/03/16 [place] Carbonate 300 mg PO QAM 06/01/16 Paroxetine HCl [Paxil] 40 mg PO DAILY 06/01/16 Cyclobenzaprine HCl [Flexeril] 10 mg PO Q8HR PRN #20 tab 10/30/16 [place] Carbonate 600 mg PO DAILY 10/30/16 Acetaminophen W/ Codeine [Tylenol W/ CODEINE #3] 1 ea PO Q6HRS #20 11/06/16 Metaxalone 800 mg PO BID #20 tab 11/06/16 Review of Systems - Review of Systems Constitutional: Denies: chills, fever EENTM: States: no symptoms reported Respiratory: States: no symptoms reported Cardiology: States: no symptoms reported Gastrointestinal/Abdominal: States: no symptoms reported Genitourinary: States: no symptoms reported Musculoskeletal: States: neck pain Skin: States: no symptoms reported Neurological: States: no symptoms reported Endocrine: States: no symptoms reported Hematologic/Lymphatic: States: no symptoms reported Past Medical History (General) - Patient Medical History Hx Seizures: No Hx Stroke: No Hx Dementia: No Hx Asthma: No Hx of COPD: No Hx Cardiac Disorders: No Hx Congestive Heart Failure: No Hx Pacemaker: No Hx Hypertension: No Hx Thyroid Disease: No Hx Diabetes: No Hx Gastroesophageal Reflux: No Hx Renal Disease: No Hx Cancer: No Hx of HIV: No Hx Hepatitis C: No Hx MRSA: Yes - Wound Infection, now healed Surgical History: other - Vaccination History Hx Tetanus, Diphtheria Vaccination: No Hx Influenza Vaccination: No Hx Pneumococcal Vaccination: No Immunizations Up to Date: Yes - Social History Hx Tobacco Use: Yes Hx Chewing Tobacco Use: No Hx Alcohol Use: No Hx Substance Use: No Hx Substance Use Treatment: No Hx Depression: No Hx Physical Abuse: No Hx Emotional Abuse: No Hx Suspected Abuse: No - Female History Patient is a Female of Child Bearing Age (10 -59 yrs old): Yes Hx Last Menstrual Period: 10/10/16 Patient : No Family Medical History - Family History Mother Family History: Unknown Living Status: Hx Family Asthma: Yes - copd-mom Hx Family Hypertension: Yes - sister Hx Cardiac Disease: Yes Hx Family Cancer: Yes - thyroid-sister Physical Exam - Physical Exam General Appearance: Alert, Well Developed, Well Hydrated Eye Exam: bilateral normal Ears, Nose, Throat: hearing grossly normal Neck: supple, other - TENDER TO THE LEFT LATERAL NECK AREA AT THE SCM TRAYECTORY. Respiratory: chest non-tender, lungs clear, normal breath sounds Cardiovascular/Chest: normal peripheral pulses, regular rate, rhythm, no edema, no gallop, no JVD, no murmur Peripheral Pulses: radial,right: 2+, radial,left: 2+ Gastrointestinal/Abdominal: normal bowel sounds, non tender, soft, no organomegaly, no pulsatile mass Rectal Exam: deferred Extremity: normal range of motion Neurologic: alert Departure - Departure Clinical Impression: Torticollis, acute Time of Disposition: 19:52 Disposition: Discharge to Home or Self Care Condition: Fair Departure Forms: ED Discharge - Pt. Copy, Patient Portal Self Enrollment Instructions: DI for Neck Pain Diet: resume usual diet Referrals: Benita Lorenzana NP [Primary Care Provider] - 1-2 Weeks Prescriptions: Acetaminophen W/ Codeine [Tylenol W/ CODEINE #3] 1 ea PO Q6HRS #20 Metaxalone 800 mg PO BID #20 tab Home Medications: Ambulatory Orders Lamotrigine [Lamictal] 200 mg PO DAILY 04/03/16 hydrOXYzine PAMOATE [Vistaril] 50 mg PO BID 04/03/16 [place] Carbon[place] 300 mg PO QAM 06/01/16 Paroxetine HCl [Paxil] 40 mg PO DAILY 06/01/16 Cyclobenzaprine HCl [Flexeril] 10 mg PO Q8HR PRN #20 tab 09/21/17 [place] 600 mg PO DAILY 10/30/16 Acetaminophen W/ Codeine [Tylenol W/ CODEINE #3] 1 ea PO Q6HRS #20 11/06/16 Metaxalone 800 mg PO BID #20 tab 11/06/16
[2016-11-06] MEDS: HYDROcodone 10MG/APAP 325MG 1 EA TAB PO ONE (19:52)
[2016-11-06] MEDS: ORPHENADRINE CITRATE 30 MG/ML AMP IM ONE (19:52)
[2016-11-06 20:29] VITALS: BP 151/82; TEMP 97.9; O2SAT 98
== END 2016-11-06 20:10 | disposition home or self-care (01) ==
LOC: ER 18:47
DX: M43.6 Torticollis (principal); Z87.891 Personal history of nicotine dependence

== ENCOUNTER 2016-11-09 19:41 | Emergency (ER) | payer OTHER ==
[2016-11-09 19:57] VITALS: TEMP 99.2
--- NOTE | 2016-11-09 20:06 | ED.PDOC ---
History of Present Illness - General Chief Complaint: Neck Injury/Pain Stated Complaint: Neck pain Time Seen by Provider: 11/09/16 20:03 Source: patient Exam Limitations: no limitations - History of Present Illness Initial Comments: Shannon Caldwell 45 y/o female stated that she had exacerbation of her sharp neck pains today.Denies fever /chills/weight loss/numbness/or weakness.No pain radiation.Had c-spine x ray in the past showing degenerative changes. Timing/Duration: intermittent Severity: moderate Improving Factors: nothing Worsening Factors: nothing Associated Symptoms: denies symptoms Allergies/Adverse Reactions: Allergies Clarithromycin [From Biaxin] Allergy (Verified 08/31/16 17:47) Vomitting Home Medications: Ambulatory Orders Lamotrigine [Lamictal] 200 mg PO DAILY 04/03/16 hydrOXYzine PAMOATE [Vistaril] 50 mg PO BID 04/03/16 [place] Carbonate 300 mg PO QAM 06/01/16 Paroxetine HCl [Paxil] 40 mg PO DAILY 06/01/16 Cyclobenzaprine HCl [Flexeril] 10 mg PO Q8HR PRN #20 tab 10/30/16 [place] Carbonate 600 mg PO DAILY 10/30/16 Acetaminophen W/ Codeine [Tylenol W/ CODEINE #3] 1 ea PO Q6HRS #20 11/06/16 Metaxalone 800 mg PO BID #20 tab 11/06/16 Baclofen 20 mg PO BID #14 tab 11/09/16 Review of Systems - Review of Systems Constitutional: States: no symptoms reported EENTM: States: no symptoms reported Respiratory: States: no symptoms reported Cardiology: States: no symptoms reported Gastrointestinal/Abdominal: States: no symptoms reported Genitourinary: States: no symptoms reported Musculoskeletal: States: see HPI, neck pain Neurological: States: no symptoms reported Past Medical History (General) - Patient Medical History Hx Seizures: No Hx Stroke: No Hx Dementia: No Hx Asthma: No Hx of COPD: Yes Hx Cardiac Disorders: No Hx Congestive Heart Failure: No Hx Pacemaker: No Hx Hypertension: No Hx Thyroid Disease: No Hx Diabetes: No Hx Gastroesophageal Reflux: No Hx Renal Disease: No Hx Cancer: No Hx of HIV: No Hx Hepatitis C: No Hx MRSA: Yes - Wound Infection, now healed Surgical History: other - ankle - Vaccination History Hx Tetanus, Diphtheria Vaccination: No Hx Influenza Vaccination: No Hx Pneumococcal Vaccination: No Immunizations Up to Date: Yes - Social History Hx Tobacco Use: Yes Hx Chewing Tobacco Use: No Hx Alcohol Use: No Hx Substance Use: No Hx Substance Use Treatment: No Hx Depression: No Hx Physical Abuse: No Hx Emotional Abuse: No Hx Suspected Abuse: No - Female History Hx Last Menstrual Period: 10/10/16 Patient : No Family Medical History - Family History Mother Family History: Unknown Living Status: Hx Family Asthma: Yes - copd-mom Hx Family Hypertension: Yes - sister Hx Cardiac Disease: Yes Hx Family Cancer: Yes - thyroid-sister Physical Exam - Physical Exam General Appearance: Alert, No apparent distress Eye Exam: bilateral normal Ears, Nose, Throat: hearing grossly normal, normal ENT inspection, normal pharynx Neck: limited range of motion - muscle spasm Respiratory: lungs clear, normal breath sounds Cardiovascular/Chest: normal peripheral pulses, regular rate, rhythm, no murmur Peripheral Pulses: radial,right: 1+, radial,left: 1+ Gastrointestinal/Abdominal: normal bowel sounds, non tender, soft Back Exam: normal inspection, no vertebral tenderness Extremity: no pedal edema, no calf tenderness Neurologic: no motor/sensory deficits, alert, oriented x 3 Skin Exam: normal color, warm/dry Lymphatic: no adenopathy Progress - Progress Progress: 11/09/16 20:16 Vital Signs - 8 hr 11/09/16 11/09/16 19:52 19:53 Temperature 99.2 F Pulse Rate [ 106 H 106 H monitor] Respiratory 16 16 Rate Blood Pressure 132/74 [Right Arm] O2 Sat by Pulse 97 Oximetry Departure - Departure Clinical Impression: Neck pain on left side, Facet arthritis, degenerative, cervical spine Time of Disposition: 20:19 Disposition: Discharge to Home or Self Care Departure Forms: ED Discharge - Pt. Copy, Patient Portal Self Enrollment Instructions: DI for Neck Pain, Osteoarthritis (Alternative Therapy) Referrals: Benita Lorenzana NP [Primary Care Provider] - 1-2 Weeks Prescriptions: Baclofen 20 mg PO BID #14 tab Home Medications: Ambulatory Orders Lamotrigine [Lamictal] 200 mg PO DAILY 04/03/16 hydrOXYzine PAMOATE [Vistaril] 50 mg PO BID 04/03/16 [place] Carbonate 300 mg PO QAM 06/01/16 Paroxetine HCl [Paxil] 40 mg PO DAILY 06/01/16 Cyclobenzaprine HCl [Flexeril] 10 mg PO Q8HR PRN #20 tab 10/30/16 [place] Carbonate 600 mg PO DAILY 10/30/16 Acetaminophen W/ Codeine [Tylenol W/ CODEINE #3] 1 ea PO Q6HRS #20 11/06/16 Metaxalone 800 mg PO BID #20 tab 11/06/16 Baclofen 20 mg PO BID #14 tab 11/09/16 Additional Instructions: Follow up with primary md 11/11/2016 call for appointment
[2016-11-09] MEDS ORDERED: BACLOFEN 10 MG TAB PO ONE (20:17)
[2016-11-09] MEDS ORDERED: NAPROXEN 250 MG TAB PO ONE (20:17)
[2016-11-09 21:07] VITALS: BP 130/70; O2SAT 100
== END 2016-11-09 21:06 | disposition home or self-care (01) ==
LOC: ER 19:41
DX: M47.892 Other spondylosis, cervical region (principal); J44.9 Chronic obstructive pulmonary disease, unspecified; Z79.899 Other long term (current) drug therapy; Z88.3 Allergy status to other anti-infective agents

== ENCOUNTER 2016-11-12 17:19 | Emergency (ER) | payer OTHER ==
[2016-11-12 17:44] VITALS: BP 132/91; TEMP 99.5; O2SAT 97
[2016-11-12] MEDS ORDERED: LIDOCAINE 1% 10 ML VIAL INJ ONE (17:44)
[2016-11-12] MEDS ORDERED: methylPREDNISolone ACETATE 40 MG/ML VIAL ONE (17:45)
--- NOTE | 2016-11-12 18:37 | ED.PDOC ---
History of Present Illness - General Chief Complaint: Neck Injury/Pain Stated Complaint: neck and head pain Time Seen by Provider: 11/12/16 17:33 Source: patient, RN notes reviewed, Vital Signs reviewed Exam Limitations: no limitations - History of Present Illness Initial Comments: This is patients 6th visit to the ER for L sided neck pain. Reports nothing is helping. She did see her PCP who referred her to pain management, she has an appointment on the 12th. Pain is keeping her up at night and causing tingling in her scalp. Timing/Duration: constant - for >8 weeks Severity: moderate Improving Factors: nothing Worsening Factors: movement Associated Symptoms: denies symptoms Allergies/Adverse Reactions: Allergies Clarithromycin [From Biaxin] Allergy (Verified 11/12/16 17:41) Vomitting Home Medications: Ambulatory Orders Lamotrigine [Lamictal] 200 mg PO DAILY 04/03/16 hydrOXYzine PAMOATE [Vistaril] 50 mg PO BID 04/03/16 [place] Carbonate 300 mg PO QAM 06/01/16 Paroxetine HCl [Paxil] 40 mg PO DAILY 06/01/16 Cyclobenzaprine HCl [Flexeril] 10 mg PO Q8HR PRN #20 tab 10/30/16 [place] Carbonate 600 mg PO DAILY 10/30/16 Acetaminophen W/ Codeine [Tylenol W/ CODEINE #3] 1 ea PO Q6HRS #20 11/06/16 Metaxalone 800 mg PO BID #20 tab 11/06/16 Baclofen 20 mg PO BID #14 tab 11/09/16 Review of Systems - Review of Systems Constitutional: States: no symptoms reported EENTM: States: no symptoms reported Respiratory: States: no symptoms reported - Currently being treated for URI by PCP Cardiology: States: no symptoms reported Gastrointestinal/Abdominal: States: no symptoms reported Musculoskeletal: States: see HPI, neck pain Skin: States: no symptoms reported Neurological: States: tingling - L scalp All other Systems: No Change from Baseline Past Medical History (General) - Patient Medical History Hx Seizures: No Hx Stroke: No Hx Dementia: No Hx Asthma: No Hx of COPD: Yes Hx Cardiac Disorders: No Hx Congestive Heart Failure: No Hx Pacemaker: No Hx Hypertension: No Hx Thyroid Disease: No Hx Diabetes: No Hx Gastroesophageal Reflux: No Hx Renal Disease: No Hx Cancer: No Hx of HIV: No Hx Hepatitis C: No Hx MRSA: Yes - Wound Infection, now healed - Vaccination History Hx Tetanus, Diphtheria Vaccination: No Hx Influenza Vaccination: No Hx Pneumococcal Vaccination: No - Social History Hx Tobacco Use: Yes Hx Chewing Tobacco Use: No Hx Alcohol Use: No Hx Substance Use: No Hx Substance Use Treatment: No Hx Depression: No Hx Physical Abuse: No Hx Emotional Abuse: No Hx Suspected Abuse: No - Female History Patient is a Female of Child Bearing Age (10 -59 yrs old): Yes Hx Last Menstrual Period: 10/10/16 Patient : No Family Medical History - Family History Mother Family History: Unknown Living Status: Hx Family Asthma: Yes - copd-mom Hx Family Hypertension: Yes - sister Hx Cardiac Disease: Yes Hx Family Cancer: Yes - thyroid-sister Physical Exam - Physical Exam General Appearance: Alert, No apparent distress, Well Developed, Well Groomed, Well Hydrated, Well Nourished Neck: limited range of motion - due to pain and spasm, tender lateral - L lateral, paraspinous muscle spasm with spasum of upper trapezius also Respiratory: lungs clear, normal breath sounds, no respiratory distress, no accessory muscle use Cardiovascular/Chest: regular rate, rhythm, no edema, no gallop, no JVD, no murmur Extremity: normal range of motion, non-tender Neurologic: no motor/sensory deficits, alert, normal mood/affect, oriented x 3 Skin Exam: normal color, warm/dry Comments: Vital Signs 11/12/16 17:30 Temperature 99.5 F Pulse Rate [ 86 pulse ox] Respiratory 20 Rate Blood Pressure 132/91 [Left Arm] O2 Sat by Pulse 97 Oximetry Procedures - Additional Procedures Progress: Trigger point injections X4 in L cervical paraspinous muscles and L upper Trapezius. Depomedrol 40mg/ml 1cc mixed with 4cc of Lidocaine w/o epi. 1cc injected @ 4 sites on L side of neck. Patient tolerated well and had significant relief of pain and improved ROM (FROM) in neck after injections. Departure - Departure Clinical Impression: Neck pain on left side, Muscle spasm Time of Disposition: 18:42 Disposition: Discharge to Home or Self Care Condition: Good Departure Forms: ED Discharge - Pt. Copy, Patient Portal Self Enrollment Instructions: DI for Neck Pain, DI for Cervical Muscle Strain Diet: resume usual diet Activity: increase activity as tolerated Referrals: Benita Lorenzana NP [Primary Care Provider] - 1-2 Weeks Home Medications: Ambulatory Orders Lamotrigine [Lamictal] 200 mg PO DAILY 04/03/16 hydrOXYzine PAMOATE [Vistaril] 50 mg PO BID 04/03/16 [place] Carbonate 300 mg PO QAM 06/01/16 Paroxetine HCl [Paxil] 40 mg PO DAILY 06/01/16 Cyclobenzaprine HCl [Flexeril] 10 mg PO Q8HR PRN #20 tab 10/30/16 [place] Carbonate 600 mg PO DAILY 10/30/16 Acetaminophen W/ Codeine [Tylenol W/ CODEINE #3] 1 ea PO Q6HRS #20 11/06/16 Metaxalone 800 mg PO BID #20 tab 11/06/16 Baclofen 20 mg PO BID #14 tab 11/09/16 Additional Instructions: Continue muscle relaxer at night and keep follow up with pain management doctor
== END 2016-11-12 18:54 | disposition home or self-care (01) ==
LOC: ER 17:19
DX: M54.2 Cervicalgia (principal); M62.838 Other muscle spasm; J44.9 Chronic obstructive pulmonary disease, unspecified; Z87.891 Personal history of nicotine dependence; Z79.899 Other long term (current) drug therapy
CPT/HCPCS: 20553; 99284; J1030

== ENCOUNTER 2016-11-16 20:20 | Emergency (ER) | payer OTHER ==
[2016-11-16 20:35] VITALS: O2SAT 95
--- NOTE | 2016-11-16 21:11 | ED.PDOC ---
History of Present Illness - General Chief Complaint: Neck Injury/Pain Stated Complaint: Left Neck Discomfort Time Seen by Provider: 11/16/16 20:33 Source: patient, Vital Signs reviewed Exam Limitations: no limitations - History of Present Illness Initial Comments: Shannon Caldwell 45 y/o female stated that she had exacerbation of her left sided sharp neck pain the last 2 days she had frequent er visit for her neck pains and has appointment with pain specialist.-Denies fever , no weakness upper extremities and lower extremities,no fever,no weight loss.Denies pain radiation.Had c-spine x ray 3 months ago showing facet arthropathy and degenerative changes Severity: moderate Improving Factors: rest Worsening Factors: movement Allergies/Adverse Reactions: Allergies Clarithromycin [From Biaxin] Allergy (Verified 11/16/16 20:32) Vomitting Home Medications: Ambulatory Orders Lamotrigine [Lamictal] 200 mg PO DAILY 04/03/16 hydrOXYzine PAMOATE [Vistaril] 50 mg PO BID 04/03/16 [place] Carbonate 300 mg PO QAM 06/01/16 Paroxetine HCl [Paxil] 40 mg PO DAILY 06/01/16 Cyclobenzaprine HCl [Flexeril] 10 mg PO Q8HR PRN #20 tab 10/30/16 [place] Carbonate 600 mg PO DAILY 10/30/16 Acetaminophen W/ Codeine [Tylenol W/ CODEINE #3] 1 ea PO Q6HRS #20 11/06/16 Metaxalone 800 mg PO BID #20 tab 11/06/16 Baclofen 20 mg PO BID #14 tab 11/09/16 Baclofen 20 mg PO BID #14 tab 11/16/16 Prednisone 10 mg PO BID #14 jorge 11/16/16 Review of Systems - Review of Systems Constitutional: States: no symptoms reported EENTM: States: no symptoms reported Respiratory: States: no symptoms reported Cardiology: States: no symptoms reported Musculoskeletal: States: see HPI Past Medical History (General) - Patient Medical History Hx Seizures: No Hx Stroke: No Hx Dementia: No Hx Asthma: No Hx of COPD: Yes Hx Cardiac Disorders: No Hx Congestive Heart Failure: No Hx Pacemaker: No Hx Hypertension: No Hx Thyroid Disease: No Hx Diabetes: No Hx Gastroesophageal Reflux: No Hx Renal Disease: No Hx Cancer: No Hx of HIV: No Hx Hepatitis C: No Hx MRSA: Yes - Wound Infection, now healed Surgical History: other - ankle - Vaccination History Hx Tetanus, Diphtheria Vaccination: No Hx Influenza Vaccination: No Hx Pneumococcal Vaccination: No - Social History Hx Tobacco Use: Yes Hx Chewing Tobacco Use: No Hx Alcohol Use: No Hx Substance Use: No Hx Substance Use Treatment: No Hx Depression: No Hx Physical Abuse: No Hx Emotional Abuse: No Hx Suspected Abuse: No - Female History Patient is a Female of Child Bearing Age (10 -59 yrs old): Yes Hx Last Menstrual Period: 10/10/16 Patient : No Family Medical History - Family History Mother Family History: Unknown Living Status: Hx Family Asthma: Yes - copd-mom Hx Family Hypertension: Yes - sister Hx Cardiac Disease: Yes Hx Family Cancer: Yes - thyroid-sister Physical Exam - Physical Exam General Appearance: Alert, No apparent distress Eye Exam: bilateral normal Ears, Nose, Throat: hearing grossly normal, normal ENT inspection Neck: non-tender - no disc tenderness, limited range of motion - muscle spasm left, other - no thyromegaly ,no carotid bruits bilateral Respiratory: lungs clear, normal breath sounds Cardiovascular/Chest: normal peripheral pulses, regular rate, rhythm, no murmur Peripheral Pulses: radial,right: 2+, radial,left: 2+ Gastrointestinal/Abdominal: normal bowel sounds, non tender, soft, no organomegaly Back Exam: no vertebral tenderness Extremity: no pedal edema, no calf tenderness Neurologic: no motor/sensory deficits, alert, oriented x 3 Departure - Departure Clinical Impression: Neck muscle spasm, Facet arthritis, degenerative, cervical spine Time of Disposition: 21:20 Disposition: Discharge to Home or Self Care Condition: Fair Departure Forms: ED Discharge - Pt. Copy, Patient Portal Self Enrollment Instructions: DI for Neck Pain Referrals: Benita Lorenzana NP [Primary Care Provider] - 1-2 Weeks Prescriptions: Baclofen 20 mg PO BID #14 tab Prednisone 10 mg PO BID #14 jorge Home Medications: Ambulatory Orders Lamotrigine [Lamictal] 200 mg PO DAILY 04/03/16 hydrOXYzine PAMOATE [Vistaril] 50 mg PO BID 04/03/16 [place] Carbonate 300 mg PO QAM 06/01/16 Paroxetine HCl [Paxil] 40 mg PO DAILY 06/01/16 Cyclobenzaprine HCl [Flexeril] 10 mg PO Q8HR PRN #20 tab 09/21/17 [place] Carbonate 600 mg PO DAILY 10/30/16 Acetaminophen W/ Codeine [Tylenol W/ CODEINE #3] 1 ea PO Q6HRS #20 11/06/16 Metaxalone 800 mg PO BID #20 tab 11/06/16 Baclofen 20 mg PO BID #14 tab 11/09/16 Baclofen 20 mg PO BID #14 tab 11/16/16 Prednisone 10 mg PO BID #14 jorge 11/16/16 Additional Instructions: KEEP APPOINTMENT WITH SPECIALIST IN [place] 11/20/2016
[2016-11-16] MEDS ORDERED: ORPHENADRINE CITRATE 30 MG/ML AMP IM ONE (21:17)
[2016-11-16] MEDS ORDERED: predniSONE 20 MG TAB PO ONE (21:17)
[2016-11-16] MEDS ORDERED: KETOROLAC TROMETHAMINE INJ 30 MG/ML VIAL IV ONE (21:17)
[2016-11-16] MEDS ORDERED: KETOROLAC TROMETHAMINE INJ 30 MG/ML VIAL IM ONE (21:30)
[2016-11-16 21:45] VITALS: BP 120/64; TEMP 99
== END 2016-11-16 21:45 | disposition home or self-care (01) ==
LOC: ER 20:20
DX: M47.892 Other spondylosis, cervical region (principal); M62.838 Other muscle spasm; J44.9 Chronic obstructive pulmonary disease, unspecified; Z87.891 Personal history of nicotine dependence; Z79.899 Other long term (current) drug therapy; Z88.8 Allergy status to other drugs, medicaments and biological substances
CPT/HCPCS: J1885; J2360; J7512

== ENCOUNTER 2016-11-20 19:03 | Emergency (ER) | payer OTHER ==
[2016-11-20 19:22] VITALS: BP 148/82; TEMP 99.4; O2SAT 96
[2016-11-20] MEDS ORDERED: GABAPENTIN 300 MG CAP PO ONE (19:40)
--- NOTE | 2016-11-20 19:43 | ED.PDOC ---
History of Present Illness - General Chief Complaint: Neck Injury/Pain Stated Complaint: neck pain, arm pain Time Seen by Provider: 11/20/16 19:26 Source: patient Exam Limitations: no limitations - History of Present Illness Initial Comments: the patient is a 46-year-old female presenting to the emergency room secondary to persistent left neck pain. The patient has had more than a half of a dozen visits over the last several months. The patient actually did go to see a specialist today but was not written for any medications. She was told she needed physical therapy but was told that it will be a while before she can get it. No medication changes were made. Over the past couple of months to this emergency room she has been receiving several doses of steroids along with muscle relaxers and pain medications to little effect. She is having no new symptoms but simply persistent symptoms. She apparently has follow-up with a specialist within the coming month. Timing/Duration: constant Severity: moderate Improving Factors: nothing Worsening Factors: nothing Associated Symptoms: denies symptoms Allergies/Adverse Reactions: Allergies Clarithromycin [From Biaxin] Allergy (Verified 11/20/16 19:22) Vomitting Sulfa Antibiotics Allergy (Verified 11/20/16 19:22) Home Medications: Ambulatory Orders Lamotrigine [Lamictal] 200 mg PO DAILY 04/03/16 hydrOXYzine PAMOATE [Vistaril] 50 mg PO BID 04/03/16 [place] Carbonate 300 mg PO QAM 06/01/16 Paroxetine HCl [Paxil] 40 mg PO DAILY 06/01/16 [place] Carbon[place] 600 mg PO DAILY 10/30/16 Gabapentin 100 mg PO TID #60 cap 11/20/16 Gabapentin 800 mg PO TID 11/20/16 Review of Systems - Review of Systems Constitutional: States: no symptoms reported EENTM: States: no symptoms reported Respiratory: States: no symptoms reported Cardiology: States: no symptoms reported Gastrointestinal/Abdominal: States: no symptoms reported Genitourinary: States: no symptoms reported Musculoskeletal: States: neck pain Skin: States: no symptoms reported Neurological: States: see HPI Endocrine: States: no symptoms reported All other Systems: No Change from Baseline Past Medical History (General) - Patient Medical History Hx Seizures: No Hx Stroke: No Hx Dementia: No Hx Asthma: No Hx of COPD: Yes Hx Cardiac Disorders: No Hx Congestive Heart Failure: No Hx Pacemaker: No Hx Hypertension: No Hx Thyroid Disease: No Hx Diabetes: No Hx Gastroesophageal Reflux: No Hx Renal Disease: No Hx Cancer: No Hx of HIV: No Hx Hepatitis C: No Hx MRSA: Yes - Wound Infection, now healed - Vaccination History Hx Tetanus, Diphtheria Vaccination: No Hx Influenza Vaccination: No Hx Pneumococcal Vaccination: No - Social History Hx Tobacco Use: Yes Hx Chewing Tobacco Use: No Hx Alcohol Use: No Hx Substance Use: No Hx Substance Use Treatment: No Hx Depression: No Hx Physical Abuse: No Hx Emotional Abuse: No Hx Suspected Abuse: No - Female History Hx Last Menstrual Period: 10/10/16 Patient : No Family Medical History - Family History Mother Family History: Unknown Living Status: Hx Family Asthma: Yes - copd-mom Hx Family Hypertension: Yes - sister Hx Cardiac Disease: Yes Hx Family Cancer: Yes - thyroid-sister Physical Exam - Physical Exam General Appearance: Alert, Comfortable, No apparent distress Eye Exam: bilateral normal Ears, Nose, Throat: hearing grossly normal Neck: other - mild discomfort to palpation adjacent to C6-C7 on the left. Respiratory: no respiratory distress, no accessory muscle use Cardiovascular/Chest: normal peripheral pulses, no edema Peripheral Pulses: radial,right: 2+, radial,left: 2+ Rectal Exam: deferred Back Exam: no CVA tenderness, no vertebral tenderness, other - mild trapezius discomfortproximally on the left Extremity: normal range of motion, non-tender, normal inspection, no pedal edema , normal capillary refill Neurologic: state patrol officer II-XII nml as tested, alert, normal mood/affect, oriented x 3 Skin Exam: normal color Comments: Vital Signs - 24 hr 11/20/16 19:15 Temperature 99.4 F Pulse Rate [ 94 H left] Respiratory 20 Rate Blood Pressure 148/82 [left] O2 Sat by Pulse 96 Oximetry Progress - Progress Progress: 11/20/16 19:44 the patient is a 46-year-old female presenting with persistent left- sided neck pain. She is currently seeing a specialist for this but has not received any pain control measures through them. She is already taking muscle relaxers and steroids. I'm going to start patient on gabapentin at 100 mg 3 times daily. She needs to be careful about over sedation with this medication. She may also benefit from a chiropractor visit for her neck pain. Aleve twice daily may also help. She can complete her current course of steroids and muscle relaxers. She needs to find a primary care doctor to help manage the chronic pain issue here. ER warnings were given. Departure - Departure Clinical Impression: Neck pain Disposition: Discharge to Home or Self Care Condition: Fair Departure Forms: ED Discharge - Pt. Copy, Patient Portal Self Enrollment Diet: regular diet Activity: increase activity as tolerated Referrals: Benita Lorenzana, NUCLE[employer] MEDICINE TECHNOLOGIST [Primary Care Provider] - 1-2 Weeks Prescriptions: Gabapentin 100 mg PO TID #60 cap Home Medications: Ambulatory Orders Lamotrigine [Lamictal] 200 mg PO DAILY 04/03/16 hydrOXYzine PAMOATE [Vistaril] 50 mg PO BID 04/03/16 [place] 300 mg PO QAM 06/01/16 Paroxetine HCl [Paxil] 40 mg PO DAILY 06/01/16 [place] 600 mg PO DAILY 10/30/16 Gabapentin 100 mg PO TID #60 cap 11/20/16 Gabapentin 800 mg PO TID 11/20/16 Additional Instructions: the patient is a 46-year-old female presenting with persistent left- sided neck pain. She is currently seeing a specialist for this but has not received any pain control measures through them. She is already taking muscle relaxers and steroids. I'm going to start patient on gabapentin at 100 mg 3 times daily. She needs to be careful about over sedation with this medication. She may also benefit from a chiropractor visit for her neck pain. Aleve twice daily may also help. She can complete her current course of steroids and muscle relaxers. She needs to find a primary care doctor to help manage the chronic pain issue here. ER warnings were given.
== END 2016-11-20 19:57 | disposition home or self-care (01) ==
LOC: ER 19:03
DX: M54.2 Cervicalgia (principal); J44.9 Chronic obstructive pulmonary disease, unspecified; Z88.2 Allergy status to sulfonamides; Z88.8 Allergy status to other drugs, medicaments and biological substances; Z79.899 Other long term (current) drug therapy

== ENCOUNTER 2016-11-21 15:18 | Emergency (ER) | payer OTHER ==
[2016-11-21 15:41] VITALS: O2SAT 96
--- NOTE | 2016-11-21 16:44 | ED.PDOC ---
History of Present Illness - General Chief Complaint: Upper Extremity Injury Stated Complaint: L wrist pain Time Seen by Provider: 11/21/16 15:26 Source: patient, RN notes reviewed, Vital Signs reviewed Exam Limitations: no limitations - History of Present Illness Initial Comments: Patient comes in with c/o of left wrist/forearm pain X 2 days. Reports she started with stinging/burning pain 2 days ago. Now swollen and painful. Occurred: other - 2 days Pain - Upper Extremity: moderate: Wrist, left Method of Injury: unknown Improving Factors: rest Worsening Factors: movement Allergies/Adverse Reactions: Allergies Clarithromycin [From Biaxin] Allergy (Verified 11/20/16 19:22) Vomitting Sulfa Antibiotics Allergy (Verified 11/20/16 19:22) Home Medications: Ambulatory Orders Lamotrigine [Lamictal] 200 mg PO DAILY 04/03/16 hydrOXYzine PAMOATE [Vistaril] 50 mg PO BID 04/03/16 [place] Carbonate 300 mg PO QAM 06/01/16 Paroxetine HCl [Paxil] 40 mg PO DAILY 06/01/16 [place] Carbonate 600 mg PO DAILY 10/30/16 Gabapentin 100 mg PO TID #60 cap 11/20/16 Gabapentin 800 mg PO TID 11/20/16 Benzonatate Perles [Tessalon Perles] 100 mg PO TID PRN #30 cap 11/21/16 Review of Systems - Review of Systems Constitutional: States: no symptoms reported Respiratory: States: no symptoms reported Cardiology: States: no symptoms reported Musculoskeletal: States: see HPI Skin: States: see HPI Neurological: States: no symptoms reported All other Systems: No Change from Baseline Past Medical History (General) - Patient Medical History Hx Seizures: No Hx Stroke: No Hx Dementia: No Hx Asthma: No Hx of COPD: Yes Hx Cardiac Disorders: No Hx Congestive Heart Failure: No Hx Pacemaker: No Hx Hypertension: No Hx Thyroid Disease: No Hx Diabetes: No Hx Gastroesophageal Reflux: No Hx Renal Disease: No Hx Cancer: No Hx of HIV: No Hx Hepatitis C: No Hx MRSA: Yes - Wound Infection, now healed - Vaccination History Hx Tetanus, Diphtheria Vaccination: No - not sure Hx Influenza Vaccination: No Hx Pneumococcal Vaccination: No Immunizations Up to Date: No - Social History Hx Tobacco Use: Yes Years Tobacco Use: 1 Hx Chewing Tobacco Use: No Hx Alcohol Use: No Hx Substance Use: No Hx Substance Use Treatment: No Hx Depression: Yes Feels Threatened In Home Enviroment: No Feels Threatened In a Relationship: No Hx Physical Abuse: No Hx Emotional Abuse: No Hx Suspected Abuse: No - Activities of Daily Living Hospice Agency (if applicable):: None - Female History Patient is a Female of Child Bearing Age (10 -59 yrs old): Yes Hx Last Menstrual Period: 10/10/16 Patient : No - Triage Comment ED Triage Comment: pt drowsy, falls asleep easily, no acute distress noted Family Medical History - Family History Mother Family History: Unknown Living Status: Hx Family Asthma: Yes - copd-mom Hx Family Hypertension: Yes - sister Hx Cardiac Disease: Yes Hx Family Cancer: Yes - thyroid-sister Physical Exam - Physical Exam General Appearance: Comfortable, No apparent distress, Well Developed, Well Groomed, Well Hydrated, Well Nourished, Other - Patient sleeping, took a bit of shaking to wake her up Cardiovascular/Respiratory: no respiratory distress Elbow/Forearm Exam: bone tenderness - L distal radius - tenderness and swelling. No erythema or warmth., soft tissue tenderness, swelling Wrist Exam: swelling - see Forearm exam Hand Exam: normal inspection, non-tender, no evidence of injury, normal ROM Neuro/Tendon: normal sensation, normal motor functions, normal tendon functions , no evidence tendon injury Mental Status: alert, oriented x 3 Skin Exam: normal color, warm/dry Comments: Vital Signs 11/21/16 11/21/16 15:40 15:46 Temperature 98.6 F 98.6 F Pulse Rate [ 88 88 Right Brachial] Respiratory 20 20 Rate Blood Pressure 131/78 131/78 [Right Arm] O2 Sat by Pulse 96 96 Oximetry Progress - Progress Progress: 11/21/16 17:16 After patient woke up she keeps coughing. She is using Albuterol w/o improvement. Will give tessalon pearls. Advised of normal Xray results. - EKG/XRAY/CT XRAY: L wrist: no fracture Departure - Departure Clinical Impression: Cough in adult Contusion of forearm, left Qualifiers: Encounter type: initial encounter Qualified Code(s): S50.12XA - Contusion of left forearm, initial encounter Time of Disposition: 17:18 Disposition: Discharge to Home or Self Care Condition: Good Departure Forms: ED Discharge - Pt. Copy, Patient Portal Self Enrollment Instructions: DI for Contusion Diet: resume usual diet Activity: increase activity as tolerated Referrals: Benita Lorenzana NP [Primary Care Provider] - 1-2 Weeks Prescriptions: Benzonatate Perles [Tessalon Perles] 100 mg PO TID PRN #30 cap PRN Reason: Cough Home Medications: Ambulatory Orders Lamotrigine [Lamictal] 200 mg PO DAILY 04/03/16 hydrOXYzine PAMOATE [Vistaril] 50 mg PO BID 04/03/16 [place] Carbonate 300 mg PO QAM 06/01/16 Paroxetine HCl [Paxil] 40 mg PO DAILY 06/01/16 [place] Carbonate 600 mg PO DAILY 10/30/16 Gabapentin 100 mg PO TID #60 cap 11/20/16 Gabapentin 800 mg PO TID 11/20/16 Benzonatate Perles [Tessalon Perles] 100 mg PO TID PRN #30 cap 11/21/16
[2016-11-21 16:53] VITALS: BP 140/77; TEMP 96.8
[2016-11-21] MEDS ORDERED: BENZONATATE PERLES 100 MG CAP PO ONE (17:16)
--- NOTE | 2016-11-21 17:20 | RAD ---
Examination: XR WRIST 3 OR MORE VIEWS dated 11/21/2016 4:40 PM CDT History: Pain swelling over distal radius Comparison: None Technique: Three views of the left wrist FINDINGS AND IMPRESSION: No acute fracture or dislocation. Alignment is anatomic. Tubular lucency extending through the capitate and lunate may be surgical or degenerative. Electronically signed by: Lex Medina MD 11/21/2016 5:19 PM CDT
== END 2016-11-21 17:28 | disposition home or self-care (01) ==
LOC: ER 15:18
DX: S50.12XA Contusion of left forearm, initial encounter (principal); R05 Cough; Z88.2 Allergy status to sulfonamides; J44.9 Chronic obstructive pulmonary disease, unspecified; F32.9 Major depressive disorder, single episode, unspecified; Z87.891 Personal history of nicotine dependence; Z88.3 Allergy status to other anti-infective agents; Z79.899 Other long term (current) drug therapy; X58.XXXA Exposure to other specified factors, initial encounter; Y92.9 Unspecified place or not applicable

== ENCOUNTER → 2016-12-23 | Outpatient (CLI) | payer OTHER ==
--- NOTE | 2016-12-25 01:45 | RAD ---
Procedure: XR CHEST 2 VIEWS Exam Date: 12/23/2016 Ordering Provider: TOLU Lorenzana Clinical Indication: SOB Comparison: None Findings: Cardiomediastinal silhouette is within normal limits. Focal lung consolidation: None Pleural effusion: None Pneumothorax: None Bones and soft tissues: Nonacute Impression: 1. No acute abnormalities in the chest. 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
== END | disposition home or self-care (01) ==
LOC: RAD 14:45
PROVIDERS: ATTEND Nurse Practitioner Family
DX: R06.02 Shortness of breath (principal)

== ENCOUNTER 2017-01-31 06:38 | Emergency (ER) | payer OTHER ==
[2017-01-31 06:57] VITALS: BP 122/82; TEMP 98.3; O2SAT 96
[2017-01-31] MEDS ORDERED: cefTRIAXone SODIUM 1 GM VIAL IM ONE (07:00)
[2017-01-31] MEDS ORDERED: predniSONE 20 MG TAB PO ONE (07:00)
--- NOTE | 2017-01-31 07:03 | ED.PDOC ---
History of Present Illness - General Chief Complaint: Dental/Mouth Stated Complaint: Pain in jaw Time Seen by Provider: 01/31/17 07:00 Source: patient Exam Limitations: no limitations - History of Present Illness Initial Comments: here with 3 days of dental pain from cavity possible infxn on right maxilla dentitioin. mutliple fractureed teeth. no fever. no sepsis, no obvious abscess. Severity: moderate Improving Factors: nothing Worsening Factors: eating Associated Symptoms: denies symptoms Allergies/Adverse Reactions: Allergies Clarithromycin [From Biaxin] Allergy (Verified 01/31/17 06:57) Vomitting Sulfa Antibiotics Allergy (Verified 01/31/17 06:57) Home Medications: Ambulatory Orders Lamotrigine [Lamictal] 200 mg PO DAILY 04/03/16 hydrOXYzine PAMOATE [Vistaril] 50 mg PO BID 04/03/16 [place] Carbonate 300 mg PO QAM 06/01/16 Paroxetine HCl [Paxil] 40 mg PO DAILY 06/01/16 [place] Carbonate 600 mg PO DAILY 10/30/16 Gabapentin 100 mg PO TID #60 cap 11/20/16 Gabapentin 800 mg PO TID 11/20/16 Benzonatate Perles [Tessalon Perles] 100 mg PO TID PRN #30 cap 11/21/16 Amoxicillin 875 mg PO BID #20 tab 01/31/17 Review of Systems - Review of Systems Constitutional: States: no symptoms reported EENTM: States: see HPI Respiratory: States: no symptoms reported Cardiology: States: no symptoms reported Gastrointestinal/Abdominal: States: no symptoms reported Genitourinary: States: no symptoms reported Musculoskeletal: States: no symptoms reported Skin: States: no symptoms reported Neurological: States: no symptoms reported Endocrine: States: no symptoms reported Past Medical History (General) - Patient Medical History Hx Seizures: No Hx Stroke: No Hx Dementia: No Hx Asthma: No Hx of COPD: Yes Hx Cardiac Disorders: No Hx Congestive Heart Failure: No Hx Pacemaker: No Hx Hypertension: No Hx Thyroid Disease: No Hx Diabetes: No Hx Gastroesophageal Reflux: No Hx Renal Disease: No Hx Cancer: No Hx of HIV: No Hx Hepatitis C: No Hx MRSA: Yes - Wound Infection, now healed Surgical History: other - Vaccination History Hx Tetanus, Diphtheria Vaccination: No Hx Influenza Vaccination: Yes Hx Pneumococcal Vaccination: No - Social History Hx Tobacco Use: Yes Cigarettes Packs Per Day: 1 Hx Chewing Tobacco Use: No Hx Alcohol Use: No Hx Substance Use: No Hx Substance Use Treatment: No Hx Depression: Yes Feels Threatened In Home Enviroment: No Feels Threatened In a Relationship: No Hx Physical Abuse: No Hx Emotional Abuse: No Hx Suspected Abuse: No - Female History Patient is a Female of Child Bearing Age (10 -59 yrs old): Yes Hx Last Menstrual Period: 10/10/16 Patient : No Family Medical History - Family History Mother Family History: Unknown Living Status: Hx Family Asthma: Yes - copd-mom Hx Family Hypertension: Yes - sister Hx Cardiac Disease: Yes Hx Family Cancer: Yes - thyroid-sister Physical Exam - Physical Exam General Appearance: Alert, Comfortable, No apparent distress Eye Exam: bilateral normal Ears, Nose, Throat: hearing grossly normal, other - see hpi. Neck: full range of motion, supple Respiratory: no respiratory distress, no accessory muscle use Cardiovascular/Chest: normal peripheral pulses, no edema Peripheral Pulses: radial,right: 2+, radial,left: 2+ Rectal Exam: deferred Extremity: normal range of motion, normal inspection, no pedal edema, normal capillary refill Neurologic: fibreglass laminator II-XII nml as tested, alert, normal mood/affect, oriented x 3 Skin Exam: normal color Comments: Vital Signs - 24 hr 01/31/17 06:51 Temperature 98.3 F Pulse Rate [ 90 Left Brachial] Respiratory 15 Rate Blood Pressure 122/82 [Left Arm] O2 Sat by Pulse 96 Oximetry Progress - Progress Progress: 01/31/17 07:02 pt here with dental infection. will place on amoxill. tylenol and ibuprofen as needed. 3 days of oral prednisone. follow up with dentist. Departure - Departure Clinical Impression: Dental caries, Chronic dental infection Disposition: Discharge to Home or Self Care Condition: Good Departure Forms: ED Discharge - Pt. Copy, Patient Portal Self Enrollment Diet: regular diet Activity: increase activity as tolerated Referrals: Benita Lorenzana NP [Primary Care Provider] - 1-2 Weeks Prescriptions: Amoxicillin 875 mg PO BID #20 tab Home Medications: Ambulatory Orders Lamotrigine [Lamictal] 200 mg PO DAILY 04/03/16 hydrOXYzine PAMOATE [Vistaril] 50 mg PO BID 04/03/16 [place] Carbonate 300 mg PO QAM 04/23/17 Paroxetine HCl [Paxil] 40 mg PO DAILY 06/01/16 [place] Carbonate 600 mg PO DAILY 10/30/16 Gabapentin 100 mg PO TID #60 cap 11/20/16 Gabapentin 800 mg PO TID 11/20/16 Benzonatate Perles [Tessalon Perles] 100 mg PO TID PRN #30 cap 11/21/16 Amoxicillin 875 mg PO BID #20 tab 01/31/17 Additional Instructions: pt here with dental infection. will place on amoxill. tylenol and ibuprofen as needed. 3 days of oral prednisone. follow up with dentist.
--- NOTE | 2017-01-31 07:04 | ED.PDOC ---
History of Present Illness - General Chief Complaint: Dental/Mouth Stated Complaint: Pain in jaw Time Seen by Provider: 01/31/17 07:00 Source: patient Exam Limitations: no limitations - History of Present Illness Initial Comments: FACIAL SWELLING AND DENTAL PAIN ONSET YESTERDAY. SHE VOICES THAT THE RIGHT SIDE OF HER FACE IS SWOLLEN AND TENDER. Timing/Duration: gradual EENT Location: dental Prearrival Treatment: no prearrival treatment Improving Factors: nothing Worsening Factors: nothing, cold therapy Allergies/Adverse Reactions: Allergies Clarithromycin [From Biaxin] Allergy (Verified 01/31/17 06:57) Vomitting Sulfa Antibiotics Allergy (Verified 01/31/17 06:57) Home Medications: Ambulatory Orders Lamotrigine [Lamictal] 200 mg PO DAILY 04/03/16 hydrOXYzine PAMOATE [Vistaril] 50 mg PO BID 04/03/16 [place] Carbonate 300 mg PO QAM 06/01/16 Paroxetine HCl [Paxil] 40 mg PO DAILY 06/01/16 [place] Carbonate 600 mg PO DAILY 10/30/16 Gabapentin 100 mg PO TID #60 cap 11/20/16 Gabapentin 800 mg PO TID 11/20/16 Benzonatate Perles [Tessalon Perles] 100 mg PO TID PRN #30 cap 11/21/16 Amoxicillin 875 mg PO BID #20 tab 01/31/17 Past Medical History (General) - Patient Medical History Hx Seizures: No Hx Stroke: No Hx Dementia: No Hx Asthma: No Hx of COPD: Yes Hx Cardiac Disorders: No Hx Congestive Heart Failure: No Hx Pacemaker: No Hx Hypertension: No Hx Thyroid Disease: No Hx Diabetes: No Hx Gastroesophageal Reflux: No Hx Renal Disease: No Hx Cancer: No Hx of HIV: No Hx Hepatitis C: No Hx MRSA: Yes - Wound Infection, now healed Surgical History: other - Vaccination History Hx Tetanus, Diphtheria Vaccination: No Hx Influenza Vaccination: Yes Hx Pneumococcal Vaccination: No - Social History Hx Tobacco Use: Yes Cigarettes Packs Per Day: 1 Hx Chewing Tobacco Use: No Hx Alcohol Use: No Hx Substance Use: No Hx Substance Use Treatment: No Hx Depression: Yes Feels Threatened In Home Enviroment: No Feels Threatened In a Relationship: No Hx Physical Abuse: No Hx Emotional Abuse: No Hx Suspected Abuse: No - Female History Patient is a Female of Child Bearing Age (10 -59 yrs old): Yes Hx Last Menstrual Period: 10/10/16 Patient : No Family Medical History - Family History Mother Family History: Unknown Living Status: Hx Family Asthma: Yes - copd-mom Hx Family Hypertension: Yes - sister Hx Cardiac Disease: Yes Hx Family Cancer: Yes - thyroid-sister Departure - Departure Disposition: Discharge to Home or Self Care Condition: Good Departure Forms: ED Discharge - Pt. Copy, Patient Portal Self Enrollment Instructions: DI for Mouth Pain Referrals: eBnita Lorenzana NP [Primary Care Provider] - 1-2 Weeks Home Medications: Ambulatory Orders Lamotrigine [Lamictal] 200 mg PO DAILY 04/03/16 hydrOXYzine PAMOATE [Vistaril] 50 mg PO BID 04/03/16 [place] Carbonate 300 mg PO QAM 06/01/16 Paroxetine HCl [Paxil] 40 mg PO DAILY 06/01/16 [place] Carbonate 600 mg PO DAILY 10/30/16 Gabapentin 100 mg PO TID #60 cap 11/20/16 Gabapentin 800 mg PO TID 11/20/16 Benzonatate Perles [Tessalon Perles] 100 mg PO TID PRN #30 cap 11/21/16 Amoxicillin 875 mg PO BID #20 tab 01/31/17
[2017-01-31] MEDS ORDERED: LIDOCAINE 1% 10 ML VIAL INJ ONE (07:16)
== END 2017-01-31 07:38 | disposition home or self-care (01) ==
LOC: ER 06:38
DX: K04.7 Periapical abscess without sinus (principal); K02.9 Dental caries, unspecified; F32.9 Major depressive disorder, single episode, unspecified; J44.9 Chronic obstructive pulmonary disease, unspecified; F17.210 Nicotine dependence, cigarettes, uncomplicated; Z79.899 Other long term (current) drug therapy; Z88.2 Allergy status to sulfonamides
CPT/HCPCS: J0696; J7512

== ENCOUNTER 2017-02-02 01:01 | Emergency (ER) | payer OTHER ==
[2017-02-02] MEDS ORDERED: diphenhydrAMINE HCL 50 MG/ML VIAL IV ONE ×2 (01:15→01:59)
[2017-02-02] MEDS: BENZTROPINE MESYLATE INJ 2 MG/2 ML AMP IV ONE ×2 (01:18→01:30)
[2017-02-02] MEDS ORDERED: BENZTROPINE MESYLATE INJ 2 MG/2 ML AMP IM ONE (01:59)
--- NOTE | 2017-02-02 02:02 | ED.PDOC ---
History of Present Illness - General Chief Complaint: General Stated Complaint: feels electrical shock go through her body Time Seen by Provider: 02/02/17 01:05 Source: patient, RN notes reviewed, Vital Signs reviewed, EMS Exam Limitations: no limitations - History of Present Illness Initial Comments: Patient comes in with c/o uncontrollable muscle spasms and feeling like electric shocks are going through her body. Symptoms started earlier today. Caused her to fall and hit her L forehead on a piece of furniture. No similar symptoms in the past. Timing/Duration: 4-6 hours Severity: severe Improving Factors: nothing Worsening Factors: nothing Associated Symptoms: denies symptoms Allergies/Adverse Reactions: Allergies Clarithromycin [From Biaxin] Allergy (Verified 01/31/17 06:57) Vomitting Sulfa Antibiotics Allergy (Verified 01/31/17 06:57) Home Medications: Ambulatory Orders Lamotrigine [Lamictal] 200 mg PO DAILY 04/03/16 hydrOXYzine PAMOATE [Vistaril] 50 mg PO BID 04/03/16 [place] Carbonate 300 mg PO QAM 06/01/16 Paroxetine HCl [Paxil] 40 mg PO DAILY 06/01/16 [place] Carbonate 600 mg PO DAILY 10/30/16 Gabapentin 100 mg PO TID #60 cap 11/20/16 Gabapentin 800 mg PO TID 11/20/16 Benzonatate Perles [Tessalon Perles] 100 mg PO TID PRN #30 cap 11/21/16 Amoxicillin 875 mg PO BID #20 tab 01/31/17 Review of Systems - Review of Systems Constitutional: States: no symptoms reported EENTM: States: no symptoms reported Respiratory: States: no symptoms reported Cardiology: States: no symptoms reported Gastrointestinal/Abdominal: States: no symptoms reported Musculoskeletal: States: see HPI Skin: States: other - Laceration to left forehead Neurological: States: see HPI All other Systems: No Change from Baseline Past Medical History (General) - Patient Medical History Hx Seizures: No Hx Stroke: No Hx Dementia: No Hx Asthma: No Hx of COPD: Yes Hx Cardiac Disorders: No Hx Congestive Heart Failure: No Hx Pacemaker: No Hx Hypertension: No Hx Thyroid Disease: No Hx Diabetes: No Hx Gastroesophageal Reflux: No Hx Renal Disease: No Hx Cancer: No Hx of HIV: No Hx Hepatitis C: No Hx MRSA: Yes - Wound Infection, now healed Surgical History: noncontributory - Vaccination History Hx Tetanus, Diphtheria Vaccination: No Hx Influenza Vaccination: Yes Hx Pneumococcal Vaccination: No - Social History Hx Tobacco Use: Yes Hx Chewing Tobacco Use: No Hx Alcohol Use: No Hx Substance Use: No Hx Substance Use Treatment: No Hx Depression: Yes Hx Physical Abuse: No Hx Emotional Abuse: No Hx Suspected Abuse: No - Female History Hx Last Menstrual Period: 10/10/16 Patient : No Family Medical History - Family History Mother Family History: Unknown Living Status: Hx Family Asthma: Yes - copd-mom Hx Family Hypertension: Yes - sister Hx Cardiac Disease: Yes Hx Family Cancer: Yes - thyroid-sister Physical Exam - Physical Exam General Appearance: Agitated, Obvious distress, Well Developed Eye Exam: bilateral normal Neck: non-tender, full range of motion, supple, normal inspection Respiratory: lungs clear, normal breath sounds, no respiratory distress, no accessory muscle use Cardiovascular/Chest: no gallop, no murmur, tachycardia Extremity: normal range of motion, non-tender, normal inspection Neurologic: alert, abnormal gait - ataxia, other - Generalized arrhythmic muscle spasms - distonic reaction Skin Exam: rash - ~2cm laceration L eyebrow - bleeding controlled. Comments: Vital Signs 02/02/17 02/02/17 01:04 03:02 Temperature 99.4 F Pulse Rate [ 91 H 106 H monitor] Respiratory 20 Rate Blood Pressure 125/75 136/89 [Left Arm] O2 Sat by Pulse 100 98 Oximetry Progress - Progress Progress: 02/02/17 02:00 Dystonic reactions are continuing after Benadryl 50mg IV and Cogentin 2mg IM - will repeat doses. 02/02/17 02:02 Discussed Dystonic reactions with patient and that her symptoms are most likely due to her psychiatric medications. Also discussed that the chronic neck pain and muscle spasm she has been having for several months is also most likely a dystonic reaction due to her medication. Will get symptoms settled here and plan to d/c home with Rx for Cogentin, stop Lamictal and follow up with psychiatrist JOLENE. 02/02/17 03:43 Patient continues to be agitated and having involuntary muscle spasms. Will try adding a small dose of Valium 5mg IM. Awaiting call back from Hospitalist @ [facility] regarding possible transfer 02/02/17 03:[address] [place] [address] [facility] refused patient so will call [facility]. 02/02/17 04:05 02/02/17 04:08 Unable to suture laceration due to tonic muscle jerking. Also unable to get CT scan of head for same. - Results/Orders Results/Orders: 02/02/17 01:13 IV Care:Saline Lock per [facility]SHIFT Laboratory Results - last 24 hr 02/02/17 02/02/17 02/02/17 00:50 00:50 02:15 WBC 11.2 H RBC 4.03 L Hgb 12.3 Hct 38.0 MCV 94.2 MCH 30.5 MCHC 32.4 L RDW 14.6 H Plt Count 304 MPV 9.1 Absolute Neuts (auto) 6.90 H Absolute Lymphs (auto) 3.10 Absolute Monos (auto) 0.90 H Absolute Eos (auto) 0.20 Absolute Basos (auto) 0.00 Neutrophils % 62.0 Lymphocytes % 27.4 Monocytes % 8.5 Eosinophils % 1.8 Basophils % 0.3 Sodium 141 Potassium 3.8 Chloride 104 Carbon Dioxide 28 Anion Gap 12.8 BUN 11 Creatinine 0.66 BUN/Creatinine Ratio 16.7 Random Glucose 81 Serum Osmolality 279.7 Calcium 9.5 Total Bilirubin 0.3 AST 25 ALT 17 Alkaline Phosphatase 72 Serum Total Protein 7.4 Albumin 4.2 Globulin 3.2 Albumin/Globulin Ratio 1.3 Urine Opiates Screen Negative Urine Barbiturates Negative Ur Phencyclidine Scrn Negative U Amphetamin/Meth Scrn Negative U Benzodiazepines Scrn Negative U Cocaine Metab Screen Negative U Cannabinoids Screen Negative Departure - Departure Clinical Impression: Dystonic movements Laceration of left side of forehead with complication Qualifiers: Encounter type: initial encounter Qualified Code(s): S01.81XA - Laceration without foreign body of other part of head, initial encounter Time of Disposition: 04:05 Disposition: Transfer to Hospital Condition: Fair Departure Forms: ED Discharge - Pt. Copy, Patient Portal Self Enrollment Referrals: Benita Lorenzana NP [Primary Care Provider] - 1-2 Weeks Home Medications: Ambulatory Orders Lamotrigine [Lamictal] 200 mg PO DAILY 04/03/16 hydrOXYzine PAMOATE [Vistaril] 50 mg PO BID 04/03/16 [place] Carbonate 300 mg PO QAM 06/01/16 Paroxetine HCl [Paxil] 40 mg PO DAILY 06/01/16 [place] Carbonate 600 mg PO DAILY 10/30/16 Gabapentin 100 mg PO TID #60 cap 11/20/16 Gabapentin 800 mg PO TID 11/20/16 Benzonatate Perles [Tessalon Perles] 100 mg PO TID PRN #30 cap 11/21/16 Amoxicillin 875 mg PO BID #20 tab 01/31/17 Transfer to Outside Facility - Transfer Information Accepting Provider:: Dr. Sahu Accepting Facility: [place] Reason for Transfer: specialized care not available
[2017-02-02] MEDS ORDERED: diazePAM INJ 10 MG/2 ML SYG IM ONE (03:39)
[2017-02-02 04:34] VITALS: BP 125/78; TEMP 98.5; O2SAT 95
== END 2017-02-02 05:18 | disposition short-term general hospital (02) ==
LOC: ER 01:01
DX: R25.8 Other abnormal involuntary movements (principal); S01.81XA Laceration without foreign body of other part of head, initial encounter; M54.2 Cervicalgia; G89.29 Other chronic pain; F32.9 Major depressive disorder, single episode, unspecified; J44.9 Chronic obstructive pulmonary disease, unspecified; Z87.891 Personal history of nicotine dependence; Z79.899 Other long term (current) drug therapy; Z88.8 Allergy status to other drugs, medicaments and biological substances; W01.190A Fall on same level from slipping, tripping and stumbling with subsequent striking against furniture, initial encounter
CPT/HCPCS: 36415; 80053; 80307; 85025; J0515; J1200; J3360

== ENCOUNTER 2017-02-26 17:17 | Emergency (ER) | payer OTHER ==
--- NOTE | 2017-02-26 17:40 | ED.PDOC ---
History of Present Illness - General Chief Complaint: General Stated Complaint: VERTIGO Time Seen by Provider: 02/26/17 17:37 Source: patient - History of Present Illness Initial Comments: PT PRESENTS TO THE ED WITH COMPLAINT OF INTERMITTENT VERTIGO ASSOCIATED WITH NAUSEA FOR THE PAST 3 WEEKS. PT DENIES SYMPTOMS CURRENTLY. Timing/Duration: intermittent Severity: moderate Improving Factors: immobilization, rest Worsening Factors: movement Associated Symptoms: nausea/vomiting Allergies/Adverse Reactions: Allergies Clarithromycin [From Biaxin] Allergy (Verified 01/31/17 06:57) Vomitting Sulfa Antibiotics Allergy (Verified 01/31/17 06:57) Home Medications: Ambulatory Orders Lamotrigine [Lamictal] 200 mg PO DAILY 04/03/16 hydrOXYzine PAMOATE [Vistaril] 50 mg PO BID 04/03/16 [place] Carbonate 300 mg PO QAM 06/01/16 Paroxetine HCl [Paxil] 40 mg PO DAILY 06/01/16 [place] Carbonate 600 mg PO DAILY 10/30/16 Gabapentin 100 mg PO TID #60 cap 11/20/16 Gabapentin 800 mg PO TID 11/20/16 Benzonatate Perles [Tessalon Perles] 100 mg PO TID PRN #30 cap 11/21/16 Amoxicillin 875 mg PO BID #20 tab 01/31/17 Meclizine HCl [Meclizine 25] 50 mg PO Q6HRS PRN #30 tab 02/26/17 Review of Systems - Review of Systems Constitutional: Denies: chills, fever EENTM: Denies: nose congestion, throat pain Respiratory: Denies: cough, short of breath Cardiology: Denies: chest pain, palpitations Neurological: Denies: headache, numbness Past Medical History (General) - Patient Medical History Hx Seizures: No Hx Stroke: No Hx Dementia: No Hx Asthma: No Hx of COPD: Yes Hx Cardiac Disorders: No Hx Congestive Heart Failure: No Hx Pacemaker: No Hx Hypertension: No Hx Thyroid Disease: No Hx Diabetes: No Hx Gastroesophageal Reflux: No Hx Renal Disease: No Hx Cancer: No Hx of HIV: No Hx Hepatitis C: No Hx MRSA: Yes - Wound Infection, now healed - Vaccination History Hx Tetanus, Diphtheria Vaccination: No Hx Influenza Vaccination: Yes Hx Pneumococcal Vaccination: No - Social History Hx Tobacco Use: Yes Hx Chewing Tobacco Use: No Hx Alcohol Use: No Hx Substance Use: No Hx Substance Use Treatment: No Hx Depression: Yes Hx Physical Abuse: No Hx Emotional Abuse: No Hx Suspected Abuse: No - Female History Hx Last Menstrual Period: 10/10/16 Patient : No Family Medical History - Family History Mother Family History: Unknown Living Status: Hx Family Asthma: Yes - copd-mom Hx Family Hypertension: Yes - sister Hx Cardiac Disease: Yes Hx Family Cancer: Yes - thyroid-sister Physical Exam - Physical Exam General Appearance: Alert, Comfortable, No apparent distress Eye Exam: bilateral normal Ears, Nose, Throat: hearing grossly normal, normal ENT inspection Neck: non-tender, full range of motion, supple Extremity: normal inspection Neurologic: alert, normal mood/affect, oriented x 3 Skin Exam: normal color, warm/dry Departure - Departure Clinical Impression: Benign positional vertigo Qualifiers: Laterality: unspecified laterality Qualified Code(s): H81.10 - Benign paroxysmal vertigo, unspecified ear Time of Disposition: 17:38 Disposition: Discharge to Home or Self Care Condition: Good Departure Forms: ED Discharge - Pt. Copy, Patient Portal Self Enrollment Instructions: DI for Benign Paroxysmal Positional Vertigo Referrals: Benita Lorenzana NP [Primary Care Provider] - 1-5 Days Prescriptions: Meclizine HCl [Meclizine 25] 50 mg PO Q6HRS PRN #30 tab PRN Reason: Dizziness Home Medications: Ambulatory Orders Lamotrigine [Lamictal] 200 mg PO DAILY 04/03/16 hydrOXYzine PAMOATE [Vistaril] 50 mg PO BID 04/03/16 [place] Carbonate 300 mg PO QAM 06/01/16 Paroxetine HCl [Paxil] 40 mg PO DAILY 06/01/16 [place] Carbonate 600 mg PO DAILY 10/30/16 Gabapentin 100 mg PO TID #60 cap 11/20/16 Gabapentin 800 mg PO TID 11/20/16 Benzonatate Perles [Tessalon Perles] 100 mg PO TID PRN #30 cap 11/21/16 Amoxicillin 875 mg PO BID #20 tab 01/31/17 Meclizine HCl [Meclizine 25] 50 mg PO Q6HRS PRN #30 tab 02/26/17
[2017-02-26 18:35] VITALS: TEMP 98.4; O2SAT 96
== END 2017-02-26 18:05 | disposition home or self-care (01) ==
LOC: ER 17:17
DX: H81.10 Benign paroxysmal vertigo, unspecified ear (principal); J44.9 Chronic obstructive pulmonary disease, unspecified; Z87.891 Personal history of nicotine dependence

== ENCOUNTER 2017-03-28 18:41 | Emergency (ER) | payer OTHER ==
[2017-03-28 19:18] VITALS: O2SAT 98
--- NOTE | 2017-03-28 19:59 | ED.PDOC ---
History of Present Illness - General Chief Complaint: Dental/Mouth Stated Complaint: tooth pain Time Seen by Provider: 03/28/17 19:59 Source: patient Exam Limitations: no limitations - History of Present Illness Initial Comments: Shannon Caldwell 46 y/o female stated that she had nasal congestion ,achy throat and dry cough for the last 3 days .Daughter ill with flu.Also stated her upper teeth left had been hurting for 3 days also.No fever or chills. Timing/Duration: other - 3 days ago Severity: moderate EENT Location: throat, dental Prearrival Treatment: no prearrival treatment Presenting Symptoms: see hpi Improving Factors: nothing Worsening Factors: nothing Associated Symptoms: other - see hpi Allergies/Adverse Reactions: Allergies Clarithromycin [From Biaxin] Allergy (Verified 01/31/17 06:57) Vomitting Sulfa Antibiotics Allergy (Verified 01/31/17 06:57) Home Medications: Ambulatory Orders Lamotrigine [Lamictal] 200 mg PO DAILY 04/03/16 hydrOXYzine PAMOATE [Vistaril] 50 mg PO BID 04/03/16 [place] Carbonate 300 mg PO QAM 06/01/16 Paroxetine HCl [Paxil] 40 mg PO DAILY 06/01/16 [place] Carbonate 600 mg PO DAILY 10/30/16 Gabapentin 100 mg PO TID #60 cap 11/20/16 Gabapentin 800 mg PO TID 11/20/16 Benzonatate Perles [Tessalon Perles] 100 mg PO TID PRN #30 cap 11/21/16 Amoxicillin 875 mg PO BID #20 tab 01/31/17 Meclizine HCl [Meclizine 25] 50 mg PO Q6HRS PRN #30 tab 02/26/17 Clindamycin HCl 300 mg PO BID #20 cap 03/28/17 Review of Systems - Review of Systems Constitutional: States: no symptoms reported EENTM: States: see HPI Respiratory: States: see HPI, cough - dry Cardiology: States: no symptoms reported Gastrointestinal/Abdominal: States: no symptoms reported Genitourinary: States: no symptoms reported All other Systems: Reviewed and Negative, No Change from Baseline Past Medical History (General) - Patient Medical History Hx Seizures: No Hx Stroke: No Hx Dementia: No Hx Asthma: No Hx of COPD: No Hx Cardiac Disorders: No Hx Congestive Heart Failure: No Hx Pacemaker: No Hx Hypertension: No Hx Thyroid Disease: No Hx Diabetes: No Hx Gastroesophageal Reflux: No Hx Renal Disease: No Hx Cancer: No Hx of HIV: No Hx Hepatitis C: No Hx MRSA: No Surgical History: other - ankle - Vaccination History Hx Tetanus, Diphtheria Vaccination: Yes Hx Influenza Vaccination: Yes Hx Pneumococcal Vaccination: No Immunizations Up to Date: No - Patient unsure of dates of last vaccinations - Social History Hx Tobacco Use: Yes Cigarettes Packs Per Day: 1 Hx Chewing Tobacco Use: No Hx Alcohol Use: No Hx Substance Use: No Hx Substance Use Treatment: No Hx Depression: No Feels Threatened In Home Enviroment: No Feels Threatened In a Relationship: No Hx Physical Abuse: No Hx Emotional Abuse: No Hx Suspected Abuse: No - Female History Patient is a Female of Child Bearing Age (10 -59 yrs old): Yes Hx Last Menstrual Period: 02/20/17 Patient : No Family Medical History - Family History Mother Family History: Unknown Living Status: Hx Family Asthma: Yes - copd-mom Hx Family Hypertension: Yes - sister Hx Cardiac Disease: Yes Hx Family Cancer: Yes - thyroid-sister Physical Exam - Physical Exam General Appearance: Alert, Comfortable, No apparent distress Eye Exam: bilateral normal Ear Exam: bilateral ear: auricle normal, canal normal, TM normal Nasal Exam: other - nasal congestion Throat Exam: dental tenderness - upper molars, other - pharyngeal erythema Neck: full range of motion, supple, trachea midline Cardiovascular/Respiratory: regular rate, rhythm, no M/R/G, normal peripheral pulses, no respiratory distress Abdominal Exam: non-tender, no organomegaly Neurologic: alert, oriented x 3 Skin Exam: normal color, warm/dry Progress - Progress Progress: 03/28/17 21:05 Vital Signs - 8 hr 03/28/17 03/28/17 19:08 20:00 Temperature 99.0 F 99.1 F Pulse Rate [ 94 H 73 Monitor] Respiratory 18 18 Rate Blood Pressure 134/82 127/75 [Right Arm] O2 Sat by Pulse 98 98 Oximetry - Results/Orders Results/Orders: 03/28/17 21:15 STREP A SCREEN CULTURE Urgent Laboratory Results - last 24 hr 03/28/17 21:15 Group A Strep DNA Negative - EKG/XRAY/CT CT Ordered: No Departure - Departure Clinical Impression: Acute pulpitis, Nasopharyngitis acute Time of Disposition: 21:55 Disposition: Discharge to Home or Self Care Condition: Fair Departure Forms: ED Discharge - Pt. Copy, Patient Portal Self Enrollment Instructions: DI for Dental Pain Diet: other - SOFT DIET ONLY UNTIL BETTER Referrals: Benita Lorenzana NP [Primary Care Provider] - 1-2 Weeks Prescriptions: Clindamycin HCl 300 mg PO BID #20 cap Home Medications: Ambulatory Orders Lamotrigine [Lamictal] 200 mg PO DAILY 04/03/16 hydrOXYzine PAMOATE [Vistaril] 50 mg PO BID 04/03/16 [place] Carbonate 300 mg PO QAM 06/01/16 Paroxetine HCl [Paxil] 40 mg PO DAILY 06/01/16 [place] Carbonate 600 mg PO DAILY 10/30/16 Gabapentin 100 mg PO TID #60 cap 11/20/16 Gabapentin 800 mg PO TID 11/20/16 Benzonatate Perles [Tessalon Perles] 100 mg PO TID PRN #30 cap 11/21/16 Amoxicillin 875 mg PO BID #20 tab 01/31/17 Meclizine HCl [Meclizine 25] 50 mg PO Q6HRS PRN #30 tab 02/26/17 Clindamycin HCl 300 mg PO BID #20 cap 03/28/17 Additional Instructions: Keep appointment with dentist
[2017-03-28] MEDS ORDERED: CLINDAMYCIN PHOSPHATE 150 MG/ML VIAL IM ONE (21:07)
[2017-03-28] MEDS ORDERED: CLINDAMYCIN HCL CAP 150 MG CAP PO ONE (21:07)
[2017-03-28 21:53] VITALS: BP 131/83; TEMP 98.7
== END 2017-03-28 22:01 | disposition home or self-care (01) ==
LOC: ER 18:41
DX: K04.01 Reversible pulpitis (principal); J00 Acute nasopharyngitis [common cold]; F17.210 Nicotine dependence, cigarettes, uncomplicated
CPT/HCPCS: 87070; 87651; J3490

== ENCOUNTER 2017-04-16 09:46 | Emergency (ER) | payer OTHER ==
[2017-04-16 10:04] VITALS: BP 148/99; TEMP 98.8; O2SAT 100
--- NOTE | 2017-04-16 10:09 | ED.PDOC ---
History of Present Illness - General Chief Complaint: Dental/Mouth Stated Complaint: tooth pain Time Seen by Provider: 04/16/17 10:01 Source: patient Exam Limitations: no limitations - History of Present Illness Initial Comments: the patient is a 46-year-old female presenting to the emergency room secondary to left sided dental-related infection that does appear to be extending into the left maxillary sinus. She has some mild swelling on that side of the face but no definable abscess to drain at this point. The patient is already taking amoxicillin and has been for approximately 2 days. No definite fever. She does have significant discomfort. She has been taking Advil. Timing/Duration: 1 week Severity: moderate Improving Factors: nothing Worsening Factors: nothing Associated Symptoms: denies symptoms Allergies/Adverse Reactions: Allergies Clarithromycin [From Biaxin] Allergy (Verified 01/31/17 06:57) Vomitting Sulfa Antibiotics Allergy (Verified 01/31/17 06:57) Home Medications: Ambulatory Orders Lamotrigine [Lamictal] 200 mg PO DAILY 04/03/16 hydrOXYzine PAMOATE [Vistaril] 50 mg PO BID 04/03/16 [place] Carbonate 300 mg PO QAM 06/01/16 Paroxetine HCl [Paxil] 40 mg PO DAILY 06/01/16 [place] Carbonate 600 mg PO DAILY 10/30/16 Gabapentin 100 mg PO TID #60 cap 11/20/16 Gabapentin 800 mg PO TID 11/20/16 Benzonatate Perles [Tessalon Perles] 100 mg PO TID PRN #30 cap 11/21/16 Amoxicillin 875 mg PO BID #20 tab 01/31/17 Meclizine HCl [Meclizine 25] 50 mg PO Q6HRS PRN #30 tab 02/26/17 Clindamycin HCl 300 mg PO BID #20 cap 03/28/17 Clindamycin HCl 300 mg PO Q8H #30 cap 04/16/17 Review of Systems - Review of Systems Constitutional: States: malaise EENTM: States: see HPI Respiratory: States: no symptoms reported Cardiology: States: no symptoms reported Gastrointestinal/Abdominal: States: no symptoms reported Genitourinary: States: no symptoms reported Musculoskeletal: States: no symptoms reported Skin: States: no symptoms reported Neurological: States: no symptoms reported Endocrine: States: no symptoms reported All other Systems: No Change from Baseline Past Medical History (General) - Patient Medical History Hx Seizures: No Hx Stroke: No Hx Dementia: No Hx Asthma: No Hx of COPD: No Hx Cardiac Disorders: No Hx Congestive Heart Failure: No Hx Pacemaker: No Hx Hypertension: No Hx Thyroid Disease: No Hx Diabetes: No Hx Gastroesophageal Reflux: No Hx Renal Disease: No Hx Cancer: No Hx of HIV: No Hx Hepatitis C: No Hx MRSA: No Surgical History: other - Vaccination History Hx Tetanus, Diphtheria Vaccination: Yes Hx Influenza Vaccination: Yes Hx Pneumococcal Vaccination: No - Social History Hx Tobacco Use: Yes Hx Chewing Tobacco Use: No Hx Alcohol Use: No Hx Substance Use: No Hx Substance Use Treatment: No Hx Depression: No Hx Physical Abuse: No Hx Emotional Abuse: No Hx Suspected Abuse: No - Female History Hx Last Menstrual Period: 02/20/17 Patient : No Family Medical History - Family History Mother Family History: Unknown Living Status: Hx Family Asthma: Yes - copd-mom Hx Family Hypertension: Yes - sister Hx Cardiac Disease: Yes Hx Family Cancer: Yes - thyroid-sister Physical Exam - Physical Exam General Appearance: Alert, Other - she is obviously uncomfortable Eye Exam: bilateral normal Ears, Nose, Throat: hearing grossly normal, other - mild swelling to the left side of the face as described above. Very poor dentition. 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 She is on amoxicillin however we will double cover with clindamycin given the likelihood of a polymicrobial infection. She can continue Advil for pain control. She needs to keep follow-up with her oral surgeon next week to have her teeth pulled. ER warnings were given for significant worsening. No definite abscess at this time to be drained. Departure - Departure Clinical Impression: Dental infection, Chronic dental pain Disposition: Discharge to Home or Self Care Condition: Fair Departure Forms: ED Discharge - Pt. Copy, Patient Portal Self Enrollment Instructions: DI for Dental Pain Diet: regular diet Activity: increase activity as tolerated Referrals: Benita Lorenzana NP [Primary Care Provider] - 1-2 Weeks Prescriptions: Clindamycin HCl 300 mg PO Q8H #30 cap Home Medications: Ambulatory Orders Lamotrigine [Lamictal] 200 mg PO DAILY 04/03/16 hydrOXYzine PAMOATE [Vistaril] 50 mg PO BID 04/03/16 [place] Carbonate 300 mg PO QAM 06/01/16 Paroxetine HCl [Paxil] 40 mg PO DAILY 06/01/16 [place] Carbonate 600 mg PO DAILY 10/30/16 Gabapentin 100 mg PO TID #60 cap 11/20/16 Gabapentin 800 mg PO TID 11/20/16 Benzonatate Perles [Tessalon Perles] 100 mg PO TID PRN #30 cap 11/21/16 Amoxicillin 875 mg PO BID #20 tab 01/31/17 Meclizine HCl [Meclizine 25] 50 mg PO Q6HRS PRN #30 tab 02/26/17 Clindamycin HCl 300 mg PO BID #20 cap 03/28/17 Clindamycin HCl 300 mg PO Q8H #30 cap 04/16/17 Additional Instructions: the patient's a 46-year-old female presenting with a dental infection. She is on amoxicillin however we will double cover with clindamycin given the likelihood of a polymicrobial infection. She can continue Advil for pain control. She needs to keep follow-up with her oral surgeon next week to have her teeth pulled. ER warnings were given for significant worsening. No definite abscess at this time to be drained.
== END 2017-04-16 10:33 | disposition home or self-care (01) ==
LOC: ER 09:46
DX: K04.7 Periapical abscess without sinus (principal)

== ENCOUNTER 2018-01-10 15:19 | Emergency (ER) | payer SELFPAY ==
[2018-01-10] MEDS ORDERED: hydrOXYzine HCl 25 MG TAB PO ONE (15:40)
--- NOTE | 2018-01-10 15:42 | ED.PDOC ---
History of Present Illness - General Chief Complaint: Skin/Abrasion/Tear Stated Complaint: Rash to body Time Seen by Provider: 01/10/18 15:21 Source: patient Exam Limitations: no limitations - History of Present Illness Initial Comments: the patient is a 47-year-old female presenting to the emergency room secondary to itching essentially all over for the last 4-5 days. She reports that it's worse in the webbing of her fingers. She does have spots where she has scratched the skin where she can reach. The pattern is somewhat characteristic for scabies. No oral lesions. No vision changes. No shortness of breath. Severity: severe Improving Factors: nothing Worsening Factors: nothing Associated Symptoms: denies symptoms Allergies/Adverse Reactions: Allergies Clarithromycin [From Biaxin] Allergy (Verified 01/31/17 06:57) Vomitting Sulfa Antibiotics Allergy (Verified 01/31/17 06:57) Home Medications: Ambulatory Orders Lamotrigine [Lamictal] 100 mg PO BID 04/03/16 hydrOXYzine PAMOATE [Vistaril] 50 mg PO BID 04/03/16 [place] Carbonate 300 mg PO QAM 06/01/16 Paroxetine HCl [Paxil] 40 mg PO DAILY 06/01/16 [place] Carbonate 600 mg PO DAILY 10/30/16 Gabapentin [Neurontin] 900 mg PO TID 01/10/18 Review of Systems - Review of Systems Constitutional: States: no symptoms reported EENTM: States: no symptoms reported Respiratory: States: no symptoms reported Cardiology: States: no symptoms reported Gastrointestinal/Abdominal: States: no symptoms reported Genitourinary: States: no symptoms reported Musculoskeletal: States: no symptoms reported Skin: States: see HPI Neurological: States: anxiety Endocrine: States: no symptoms reported All other Systems: No Change from Baseline Past Medical History (General) - Patient Medical History Hx Seizures: Yes Hx Stroke: No Hx Dementia: No Hx Asthma: No Hx of COPD: No Hx Cardiac Disorders: No Hx Congestive Heart Failure: No Hx Pacemaker: No Hx Hypertension: No Hx Thyroid Disease: No Hx Diabetes: No Hx Gastroesophageal Reflux: No Hx Renal Disease: No Hx Cancer: No Hx of HIV: No Hx Hepatitis C: No Hx MRSA: No Surgical History: other - Vaccination History Hx Tetanus, Diphtheria Vaccination: Yes Hx Influenza Vaccination: Yes - 2018 Hx Pneumococcal Vaccination: No - Social History Hx Tobacco Use: Yes Hx Chewing Tobacco Use: No Hx Alcohol Use: No Hx Substance Use: No Hx Substance Use Treatment: No Hx Depression: No Hx Physical Abuse: No Hx Emotional Abuse: No Hx Suspected Abuse: No - Female History Patient is a Female of Child Bearing Age (10 -59 yrs old): Yes Hx Last Menstrual Period: 02/20/17 Patient : No Family Medical History - Family History Mother Family History: Unknown Living Status: Hx Family Asthma: Yes - copd-mom Hx Family Hypertension: Yes - sister Hx Cardiac Disease: Yes Hx Family Cancer: Yes - thyroid-sister Physical Exam - Physical Exam General Appearance: Alert, Anxious Eye Exam: bilateral normal Ears, Nose, Throat: hearing grossly normal, normal pharynx Neck: full range of motion, supple Respiratory: no respiratory distress, no accessory muscle use Cardiovascular/Chest: normal peripheral pulses, no edema Peripheral Pulses: radial,right: 2+, radial,left: 2+ Gastrointestinal/Abdominal: soft Rectal Exam: deferred Back Exam: normal inspection Extremity: normal range of motion, non-tender, no pedal edema, normal capillary refill 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 The patient is being written for topical permethrin to be used as soon as she gets it filled and then 10 days later. She does need to wash her clothes and bedding in high heat now and again in 4 days. ER warnings were given. She can take [id number] Benadryl 25 mg every 4 hours as needed additionally for itching. Departure - Departure Clinical Impression: Scabies Disposition: Discharge to Home or Self Care Condition: Fair Departure Forms: ED Discharge - Pt. Copy, Patient Portal Self Enrollment Instructions: Scabies (DC) Diet: regular diet Activity: increase activity as tolerated Referrals: Shante Sigala NP [Primary Care Provider] - 1-2 Weeks Home Medications: Ambulatory Orders Lamotrigine [Lamictal] 100 mg PO BID 04/03/16 hydrOXYzine PAMOATE [Vistaril] 50 mg PO BID 04/03/16 [place] Carbonate 300 mg PO QAM 06/01/16 Paroxetine HCl [Paxil] 40 mg PO DAILY 06/01/16 [place] Carbonate 600 mg PO DAILY 10/30/16 Gabapentin [Neurontin] 900 mg PO TID 01/10/18 Additional Instructions: the patient is a 47-year-old female presenting to emergency room secondary to what appears to be scabies. The patient is being written for topical permethrin to be used as soon as she gets it filled and then 10 days later. She does need to wash her clothes and bedding in high heat now and again in 4 days. ER warnings were given. She can take [id number] Benadryl 25 mg every 4 hours as needed additionally for itching.
[2018-01-10] MEDS ORDERED: hydrOXYzine HCl 10 MG TAB ONE (15:50)
[2018-01-10 16:15] VITALS: BP 122/79; TEMP 97.6; O2SAT 100
== END 2018-01-10 16:01 | disposition home or self-care (01) ==
LOC: ER 15:19
DX: B86 Scabies (principal); Z87.891 Personal history of nicotine dependence; Z88.2 Allergy status to sulfonamides

== ENCOUNTER 2018-01-19 22:47 | Emergency (ER) | payer SELFPAY ==
[2018-01-20 00:10] VITALS: BP 135/66; O2SAT 97
[2018-01-20] MEDS ORDERED: hydrOXYzine HCl 50 MG/ML VIAL IM ONE (00:15)
[2018-01-20] MEDS ORDERED: methylPREDNISolone SODIUM SUC 125 MG/2 ML VIAL IM ONE (00:15)
--- NOTE | 2018-01-20 00:19 | ED.PDOC ---
History of Present Illness - General Chief Complaint: Skin/Abrasion/Tear Stated Complaint: scabies creme is making me itch Time Seen by Provider: 01/20/18 00:11 Source: patient Exam Limitations: no limitations - History of Present Illness Initial Comments: PT STARTED ON ELIMITE FOR SCABIES. GOT IT FILLED TODAY. USED IT TONIGHT WITH ONSET OF INTENSE ITCHING. SOME REDNESS, NO WHELPS. Timing/Duration: other - [employer] Severity: moderate Improving Factors: nothing Worsening Factors: nothing Associated Symptoms: denies symptoms Allergies/Adverse Reactions: Allergies Clarithromycin [From Biaxin] Allergy (Verified 01/31/17 06:57) Vomitting Sulfa Antibiotics Allergy (Verified 01/31/17 06:57) Home Medications: Ambulatory Orders Lamotrigine [Lamictal] 100 mg PO BID 04/03/16 hydrOXYzine PAMOATE [Vistaril] 50 mg PO BID 04/03/16 [place] Carbonate 300 mg PO QAM 06/01/16 Paroxetine HCl [Paxil] 40 mg PO DAILY 06/01/16 [place] Carbonate 600 mg PO DAILY 10/30/16 Gabapentin [Neurontin] 900 mg PO TID 01/10/18 Methylprednisolone [Medrol Dose Steve] 4 mg PO DAILY #1 pack 01/20/18 Review of Systems - Review of Systems Constitutional: Denies: chills, fever EENTM: States: no symptoms reported Respiratory: Denies: cough, short of breath Cardiology: Denies: chest pain, palpitations Gastrointestinal/Abdominal: Denies: nausea, vomiting Skin: States: rash. Denies: lesions Past Medical History (General) - Patient Medical History Hx Seizures: Yes Hx Stroke: No Hx Dementia: No Hx Asthma: No Hx of COPD: No Hx Cardiac Disorders: No Hx Congestive Heart Failure: No Hx Pacemaker: No Hx Hypertension: No Hx Thyroid Disease: No Hx Diabetes: No Hx Gastroesophageal Reflux: No Hx Renal Disease: No Hx Cancer: No Hx of HIV: No Hx Hepatitis C: No Hx MRSA: No Surgical History: other - Vaccination History Hx Tetanus, Diphtheria Vaccination: Yes Hx Influenza Vaccination: Yes - 2018 Hx Pneumococcal Vaccination: No Immunizations Up to Date: Yes - Social History Hx Tobacco Use: Yes Hx Chewing Tobacco Use: No Hx Alcohol Use: No Hx Substance Use: No Hx Substance Use Treatment: No Hx Depression: No Feels Threatened In Home Enviroment: No Feels Threatened In a Relationship: No Hx Physical Abuse: No Hx Emotional Abuse: No Hx Suspected Abuse: No - Activities of Daily Living Hospice Agency (if applicable):: None - Female History Patient is a Female of Child Bearing Age (10 -59 yrs old): Yes Hx Last Menstrual Period: 02/20/17 Patient : No - BSO Family Medical History - Family History Mother Family History: Unknown Living Status: Hx Family Asthma: Yes - copd-mom Hx Family Hypertension: Yes - sister Hx Cardiac Disease: Yes Hx Family Cancer: Yes - thyroid-sister Physical Exam - Physical Exam General Appearance: Alert, Anxious, No apparent distress Eye Exam: bilateral normal Ears, Nose, Throat: hearing grossly normal, normal ENT inspection Neck: non-tender, full range of motion, supple Respiratory: lungs clear, normal breath sounds Cardiovascular/Chest: regular rate, rhythm, no murmur Gastrointestinal/Abdominal: non tender, soft Back Exam: no CVA tenderness, no vertebral tenderness, other - DIFFUSE ERYTHEMATOUS RASH, NO WHELPS. Extremity: normal range of motion, other - AREAS OF EXCORIATION, MILD ERYTHEMA, NO C/C/E Neurologic: alert, normal mood/affect Skin Exam: rash - C/W SCABIES INFESTATION Lymphatic: no adenopathy Departure - Departure Clinical Impression: Scabies, Dermatitis Time of Disposition: 00:27 Disposition: Discharge to Home or Self Care Condition: Good Departure Forms: ED Discharge - Pt. Copy, Patient Portal Self Enrollment Instructions: Scabies, Itchy Skin Referrals: Shante Sigala NP [Primary Care Provider] - 1-2 Weeks Prescriptions: Methylprednisolone [Medrol Dose Steve] 4 mg PO DAILY #1 pack Home Medications: Ambulatory Orders Lamotrigine [Lamictal] 100 mg PO BID 04/03/16 hydrOXYzine PAMOATE [Vistaril] 50 mg PO BID 04/03/16 [place] Carbonate 300 mg PO QAM 06/01/16 Paroxetine HCl [Paxil] 40 mg PO DAILY 06/01/16 [place] Carbonate 600 mg PO DAILY 10/30/16 Gabapentin [Neurontin] 900 mg PO TID 01/10/18 Methylprednisolone [Medrol Dose Steve] 4 mg PO DAILY #1 pack 01/20/18
[2018-01-20 01:29] VITALS: TEMP 97.2
== END 2018-01-20 01:05 | disposition home or self-care (01) ==
LOC: ER 22:47
DX: B86 Scabies (principal); L30.8 Other specified dermatitis; R56.9 Unspecified convulsions; Z79.899 Other long term (current) drug therapy; Z87.891 Personal history of nicotine dependence; Z88.8 Allergy status to other drugs, medicaments and biological substances; Z88.2 Allergy status to sulfonamides
CPT/HCPCS: J2930; J3410

== ENCOUNTER 2018-02-06 07:37 | Emergency (ER) | payer SELFPAY ==
[2018-02-06 07:55] VITALS: TEMP 97.8
[2018-02-06] MEDS ORDERED: BENZONATATE PERLES 100 MG CAP PO ONE (08:04)
[2018-02-06] MEDS ORDERED: predniSONE 20 MG TAB PO ONE (08:04)
[2018-02-06] MEDS ORDERED: IPRATROPIUM/ALBUTEROL 3 ML VIAL NEB ONE (08:04)
--- NOTE | 2018-02-06 08:07 | ED.PDOC ---
History of Present Illness - General Chief Complaint: Respiratory Problem Stated Complaint: cough Time Seen by Provider: 02/06/18 07:58 Source: patient Exam Limitations: no limitations - History of Present Illness Initial Comments: Patient presents with a severe non-productive cough for three days. It has been keeping her up at night. She has had congestion and malaise for about one week. No known fevers. Has had multiple sick contacts. She smokes cigarettes but hasn't been able to in a week because of the cough. She has had pneumonia twice. No other complaints. Timing/Duration: 1 week Severity: moderate Improving Factors: nothing Worsening Factors: nothing Associated Symptoms: other - as in HPI Allergies/Adverse Reactions: Allergies Clarithromycin [From Biaxin] Allergy (Verified 01/31/17 06:57) Vomitting Sulfa Antibiotics Allergy (Verified 01/31/17 06:57) Home Medications: Ambulatory Orders Lamotrigine [Lamictal] 100 mg PO BID 04/03/16 hydrOXYzine PAMOATE [Vistaril] 50 mg PO BID 04/03/16 [place] Carbonate 300 mg PO QAM 06/01/16 Paroxetine HCl [Paxil] 40 mg PO DAILY 06/01/16 [place] Carbonate 600 mg PO BEDTIME 10/30/16 Gabapentin [Neurontin] 900 mg PO TID 01/10/18 Benzonatate Perles [Tessalon Perles] 100 mg PO Q8HRS #30 cap 02/06/18 Review of Systems - Review of Systems Constitutional: States: see HPI EENTM: States: see HPI Respiratory: States: see HPI Cardiology: States: no symptoms reported Gastrointestinal/Abdominal: States: no symptoms reported Genitourinary: States: no symptoms reported Musculoskeletal: States: no symptoms reported Skin: States: no symptoms reported Neurological: States: no symptoms reported Endocrine: States: no symptoms reported Hematologic/Lymphatic: States: no symptoms reported Past Medical History (General) - Patient Medical History Hx Seizures: Yes Hx Stroke: No Hx Dementia: No Hx Asthma: No Hx of COPD: No Hx Cardiac Disorders: No Hx Congestive Heart Failure: No Hx Pacemaker: No Hx Hypertension: No Hx Thyroid Disease: No Hx Diabetes: No Hx Gastroesophageal Reflux: No Hx Renal Disease: No Hx Cancer: No Hx of HIV: No Hx Hepatitis C: No Hx MRSA: No - Vaccination History Hx Tetanus, Diphtheria Vaccination: Yes Hx Influenza Vaccination: Yes Hx Pneumococcal Vaccination: No - Social History Hx Tobacco Use: Yes Hx Chewing Tobacco Use: No Hx Alcohol Use: No Hx Substance Use: No Hx Substance Use Treatment: No Hx Depression: No Hx Physical Abuse: No Hx Emotional Abuse: No Hx Suspected Abuse: No - Female History Hx Last Menstrual Period: 02/20/17 Patient : No - BSO Family Medical History - Family History Mother Family History: Unknown Living Status: Hx Family Asthma: Yes - copd-mom Hx Family Hypertension: Yes - sister Hx Cardiac Disease: Yes Hx Family Cancer: Yes - thyroid-sister Physical Exam - Physical Exam General Appearance: Alert Eye Exam: bilateral normal Ears, Nose, Throat: normal ENT inspection Neck: non-tender, full range of motion, supple Respiratory: chest non-tender, lungs clear, normal breath sounds Cardiovascular/Chest: regular rate, rhythm Gastrointestinal/Abdominal: normal bowel sounds, non tender, soft Back Exam: no CVA tenderness Neurologic: no motor/sensory deficits, alert, normal mood/affect, oriented x 3 Skin Exam: normal color Lymphatic: no adenopathy Departure - Departure Clinical Impression: Acute bronchitis Disposition: Discharge to Home or Self Care Condition: Good Departure Forms: ED Discharge - Pt. Copy, Patient Portal Self Enrollment Instructions: Acute Bronchitis Diet: resume usual diet Activity: increase activity as tolerated Referrals: Shante Sigala NP [Primary Care Provider] - 1-2 Weeks Prescriptions: Benzonatate Perles [Tessalon Perles] 100 mg PO Q8HRS #30 cap Home Medications: Ambulatory Orders Lamotrigine [Lamictal] 100 mg PO BID 04/03/16 hydrOXYzine PAMOATE [Vistaril] 50 mg PO BID 04/03/16 [place] Carbonate 300 mg PO QAM 06/01/16 Paroxetine HCl [Paxil] 40 mg PO DAILY 06/01/16 [place] Carbonate 600 mg PO BEDTIME 10/30/16 Gabapentin [Neurontin] 900 mg PO TID 01/10/18 Benzonatate Perles [Tessalon Perles] 100 mg PO Q8HRS #30 cap 02/06/18 Additional Instructions: Take medication for cough as directed. You likely have viral bronchitis. Stop smoking. Return to the E.R. for temperature above 100.4 or difficulty breathing.
--- NOTE | 2018-02-06 08:21 | RAD ---
PROCEDURE: Chest,2 Views CLINICAL HISTORY: cough INDICATION: Same as above COMPARISON: 12/23/2016 TECHNIQUE: PA and and lateral chest radiographs were obtained. FINDINGS: The lung rivera are well inflated. There are no discrete airspace infiltrates, pneumothoraces or pleural effusions. The pulmonary vascularity is normal The cardiomediastinal silhouette is stable. IMPRESSION: There is no acute pleural-parenchymal process seen in the imaged lung rivera. Place of interpretation: [facility]. Electronically signed by: Yifan Carey MD 02/06/2018 8:20 AM [facility] Workstation: [id number]-
[2018-02-06 09:47] VITALS: BP 123/67; O2SAT 97
== END 2018-02-06 09:47 | disposition home or self-care (01) ==
LOC: ER 07:37
DX: J20.9 Acute bronchitis, unspecified (principal); R56.9 Unspecified convulsions; F17.210 Nicotine dependence, cigarettes, uncomplicated; Z79.899 Other long term (current) drug therapy; Z88.8 Allergy status to other drugs, medicaments and biological substances; Z88.2 Allergy status to sulfonamides
CPT/HCPCS: 36415; 71046; 80048; 85025; 87070; 87502; 87880; 94640; 99406; J7512; J7620

== ENCOUNTER 2018-02-07 03:21 | Emergency (ER) | payer SELFPAY ==
[2018-02-07 03:46] VITALS: TEMP 100.8
[2018-02-07] MEDS ORDERED: IPRATROPIUM/ALBUTEROL 3 ML VIAL NEB ONE (03:54)
[2018-02-07] MEDS ORDERED: PROMETHAZINE W/CODEINE SYR 5 ML UD PO ONE (03:55)
[2018-02-07] MEDS ORDERED: KETOROLAC TROMETHAMINE INJ 30 MG/ML VIAL IV ONE (03:56)
--- NOTE | 2018-02-07 03:59 | ED.PDOC ---
History of Present Illness - General Chief Complaint: General Stated Complaint: cough, migraine, neck pain Time Seen by Provider: 02/07/18 03:30 Source: patient Exam Limitations: no limitations - History of Present Illness Initial Comments: Patient presents for the second time in the last 24 hours with a cough. She was here yesterday morning with a dry cough and was treated successfully with a duoneb and tessalon. She said over the course of the day, the cough came back and the tessalon stopped working. She has a headache from all the coughing and has had some pressure incontinence from it was well. Her CXR and labs were unremarkable yesterday morning. She is a smoker but says she hasn't been able to smoke for a week because of the cough. No vomiting today but has had nausea. No other complaints. Timing/Duration: 1 week Severity: moderate Improving Factors: nothing Worsening Factors: nothing Associated Symptoms: denies symptoms Allergies/Adverse Reactions: Allergies Clarithromycin [From Biaxin] Allergy (Verified 01/31/17 06:57) Vomitting Sulfa Antibiotics Allergy (Verified 01/31/17 06:57) Home Medications: Ambulatory Orders Lamotrigine [Lamictal] 100 mg PO BID 04/03/16 hydrOXYzine PAMOATE [Vistaril] 50 mg PO BID 04/03/16 [place] Carbonate 300 mg PO QAM 06/01/16 Paroxetine HCl [Paxil] 40 mg PO DAILY 06/01/16 [place] Carbonate 600 mg PO BEDTIME 10/30/16 Gabapentin [Neurontin] 900 mg PO TID 01/10/18 Benzonatate Perles [Tessalon Perles] 100 mg PO Q8HRS #30 cap 02/06/18 Albuterol Inhaler [Ventolin Hfa Inhaler] 1 puff INH Q4HR PRN #1 inh 02/07/18 Prednisone [Deltasone] 20 mg PO DAILY #5 tab 02/07/18 guaiFENesin W/CODEINE LIQ [Robitussin AC] 5 ml PO Q4HR PRN #100 ml 02/07/18 levoFLOXacin [Levaquin] 500 mg PO DAILY #5 tab 02/07/18 Review of Systems - Review of Systems Constitutional: States: no symptoms reported EENTM: States: no symptoms reported Respiratory: States: see HPI Cardiology: States: no symptoms reported Gastrointestinal/Abdominal: States: no symptoms reported Musculoskeletal: States: no symptoms reported Skin: States: no symptoms reported Neurological: States: see HPI Endocrine: States: no symptoms reported Hematologic/Lymphatic: States: no symptoms reported Past Medical History (General) - Patient Medical History Hx Seizures: Yes Hx Stroke: No Hx Dementia: No Hx Asthma: No Hx of COPD: No Hx Cardiac Disorders: No Hx Congestive Heart Failure: No Hx Pacemaker: No Hx Hypertension: No Hx Thyroid Disease: No Hx Diabetes: No Hx Gastroesophageal Reflux: No Hx Renal Disease: No Hx Cancer: No Hx of HIV: No Hx Hepatitis C: No Hx MRSA: No - Vaccination History Hx Tetanus, Diphtheria Vaccination: Yes Hx Influenza Vaccination: Yes Hx Pneumococcal Vaccination: No - Social History Hx Tobacco Use: Yes Hx Chewing Tobacco Use: No Hx Alcohol Use: No Hx Substance Use: No Hx Substance Use Treatment: No Hx Depression: No Hx Physical Abuse: No Hx Emotional Abuse: No Hx Suspected Abuse: No - Female History Hx Last Menstrual Period: 02/20/17 Patient : No - BSO Family Medical History - Family History Mother Family History: Unknown Living Status: Hx Family Asthma: Yes - copd-mom Hx Family Hypertension: Yes - sister Hx Cardiac Disease: Yes Hx Family Cancer: Yes - thyroid-sister Physical Exam - Physical Exam General Appearance: Alert Eye Exam: bilateral normal Ears, Nose, Throat: normal ENT inspection Neck: non-tender, full range of motion, supple Respiratory: lungs clear, wheezing - scattered expiratory Cardiovascular/Chest: normal peripheral pulses, regular rate, rhythm Gastrointestinal/Abdominal: normal bowel sounds, non tender, soft Back Exam: no CVA tenderness Neurologic: no motor/sensory deficits, alert, normal mood/affect, oriented x 3 Skin Exam: normal color Lymphatic: no adenopathy Progress - Progress Progress: 02/07/18 07:12 Laboratory Tests 02/07/18 02/07/18 04:00 04:00 WBC 10.9 H D RBC 3.95 L Hgb 12.3 Hct 37.2 MCV 94.1 MCH 31.1 H MCHC 33.2 RDW 13.8 Plt Count 285 MPV 8.7 Absolute Neuts (auto) 7.50 H Absolute Lymphs (auto) 2.50 Absolute Monos (auto) 0.80 Absolute Eos (auto) 0.20 Absolute Basos (auto) 0.00 Neutrophils % 68.6 Lymphocytes % 22.7 Monocytes % 7.0 Eosinophils % 1.5 Basophils % 0.2 Sodium 139 Potassium 3.7 Chloride 106 Carbon Dioxide 26 Anion Gap 10.7 L BUN 9 Creatinine 0.61 BUN/Creatinine Ratio 14.8 Random Glucose 92 Serum Osmolality 275.[address] chest showed diffuse bronchopneumonia that did not show up on earlier chest x-ray. She was given Levaquin 750 mg IV and RX for omnicef 300 mg bid x 7 days, albuterol MDI, and phenergan/codeine cough syrup. Care intructions given. E.R. warnings given. Questions were elicited and answered. The patient voiced understanding and agreement with the plan. Departure - Departure Clinical Impression: Pneumonia Disposition: Discharge to Home or Self Care Condition: Fair Departure Forms: ED Discharge - Pt. Copy, Patient Portal Self Enrollment Instructions: Pneumonia, Adult (DC) Diet: resume usual diet Activity: increase activity as tolerated Referrals: Shante Sigala NP [Primary Care Provider] - 1-2 Weeks Prescriptions: Albuterol Inhaler [Ventolin Hfa Inhaler] 1 puff INH Q4HR PRN #1 inh PRN Reason: Cough guaiFENesin W/CODEINE LIQ [Robitussin AC] 5 ml PO Q4HR PRN #100 ml PRN Reason: Cough levoFLOXacin [Levaquin] 500 mg PO DAILY #5 tab Prednisone [Deltasone] 20 mg PO DAILY #5 tab Home Medications: Ambulatory Orders Lamotrigine [Lamictal] 100 mg PO BID 04/03/16 hydrOXYzine PAMOATE [Vistaril] 50 mg PO BID 04/03/16 [place] Carbonate 300 mg PO QAM 06/01/16 Paroxetine HCl [Paxil] 40 mg PO DAILY 06/01/16 [place] Carbonate 600 mg PO BEDTIME 10/30/16 Gabapentin [Neurontin] 900 mg PO TID 01/10/18 Benzonatate Perles [Tessalon Perles] 100 mg PO Q8HRS #30 cap 02/06/18 Albuterol Inhaler [Ventolin Hfa Inhaler] 1 puff INH Q4HR PRN #1 inh 02/07/18 Prednisone [Deltasone] 20 mg PO DAILY #5 tab 02/07/18 guaiFENesin W/CODEINE LIQ [Robitussin AC] 5 ml PO Q4HR PRN #100 ml 02/07/18 levoFLOXacin [Levaquin] 500 mg PO DAILY #5 tab 02/07/18
[2018-02-07] MEDS ORDERED: methylPREDNISolone SODIUM SUC 125 MG/2 ML VIAL IV ONE (05:18)
--- NOTE | 2018-02-07 05:28 | CT ---
CTA CHEST WITH CONTRAST 02/07/2018.. CLINICAL HISTORY: Intractable cough, smoker COMPARISON: None. TECHNIQUE: Axial [address] imaging of the thorax utilizing 94 mL Optiray 320. Reformatted coronal and sagittal images reviewed. Reconstructed axial, coronal, and sagittal maximum intensity projection images of the pulmonary vasculature also reviewed. This exam was performed according to our departmental dose-optimization program which includes automated exposure control, adjustment of the mA and/or kV according to patient size and/or use of iterative reconstruction technique FINDINGS: PULMONARY ARTERIES: Normal-caliber main pulmonary artery. No filling defect within the right atrium or ventricle. No filling defect within the central or peripheral pulmonary vasculature. HEART/GREAT VESSELS: Normal cardiac size. No pericardial fluid. Normal caliber thoracic aorta. There is a bovine branch pattern of the arch vessels. MEDIASTINUM/HEIDI: There are calcified mediastinal and right hilar lymph nodes that are remote granulomatous disease. No filling defect within the central airways. Mild bilateral bronchial thickening. LUNGS/PLEURA: There are multifocal small groundglass patchy airspace densities throughout the right and left lung involving all lobes. This is within a peribronchial and alveolar distribution. There is no edema. There is no pneumothorax. No pleural fluid. CHEST WALL/SOFT TISSUES: Unremarkable thyroid. No axillary lymphadenopathy. Bony thorax. UPPER ABDOMEN: The liver is decreased in attenuation indicating fatty infiltration. Normal including spleen and pancreas. Normal adrenal glands. IMPRESSION: 1. No pulmonary embolism. 2. Multifocal bronchopneumonia with bronchitis. Follow-up to assure resolution. 3. Old granulomatous disease. 4. Fatty liver. Electronically signed by: Marta Gallo DO 02/07/2018 5:25 AM [employer] TECHNICIAN
[2018-02-07] MEDS ORDERED: levoFLOXacin 750MG IV 750 MG in PREMIX BAG 1 BAG IVPB ONE (07:15)
[2018-02-07] MEDS ORDERED: levoFLOXacin 500 MG TAB PO ONE (07:36)
[2018-02-07 08:02] VITALS: BP 119/73; O2SAT 99
== END 2018-02-07 08:02 | disposition home or self-care (01) ==
LOC: ER 03:21
DX: J18.9 Pneumonia, unspecified organism (principal); R51 Headache; F17.200 Nicotine dependence, unspecified, uncomplicated; R56.9 Unspecified convulsions; Z79.899 Other long term (current) drug therapy; Z88.2 Allergy status to sulfonamides; Z88.8 Allergy status to other drugs, medicaments and biological substances
CPT/HCPCS: 36415; 71275; 80048; 85025; 87040; 94640; J1885; J2930; J7620

== ENCOUNTER 2018-02-08 15:13 | Emergency (ER) | payer SELFPAY ==
[2018-02-08 15:53] VITALS: BP 144/93; TEMP 99.3
--- NOTE | 2018-02-08 16:42 | RAD ---
EXAM DESCRIPTION: Chest,2 Views CLINICAL HISTORY: cough COMPARISON: 02/06/2018 FINDINGS: Two views of the chest are submitted. Cardiac silhouette appears normal. No focal parenchymal or pleural disease. No acute bony abnormality. There is no significant pulmonary vascular engorgement. IMPRESSION: No evidence of acute cardiopulmonary disease. Electronically signed by: Adolfo Smith 02/08/2018 4:40 PM POWER DISTRI[employer]OR
[2018-02-08] MEDS ORDERED: IPRATROPIUM/ALBUTEROL 3 ML VIAL NEB ONE (17:35)
[2018-02-08] MEDS ORDERED: levoFLOXacin 500 MG TAB PO ONE (17:35)
[2018-02-08] MEDS ORDERED: cefTRIAXone SODIUM 1 GM VIAL IM ONE (17:36)
--- NOTE | 2018-02-08 17:42 | ED.PDOC ---
History of Present Illness - General Chief Complaint: Respiratory Problem Stated Complaint: cough, headache Time Seen by Provider: 02/08/18 15:30 Source: patient Exam Limitations: no limitations - History of Present Illness Initial Comments: Patient presents with a cough. This is her third visit in as many days. She was diagnosed with pneumonia last time and given Levaquin 750 mg po in the E.R. as well as prescriptions for Levaquin, albuterol MDI, prednisone, and Robitussin A- C. She says that she did not fill any of the medications due to cost. Her cough has improved. No other complaints. Timing/Duration: 1 week Severity: moderate Improving Factors: nothing Worsening Factors: nothing Associated Symptoms: denies symptoms Allergies/Adverse Reactions: Allergies Clarithromycin [From Biaxin] Allergy (Verified 02/12/18 21:49) Vomitting Sulfa Antibiotics Allergy (Verified 02/08/18 15:53) Home Medications: Ambulatory Orders Lamotrigine [Lamictal] 100 mg PO BID 04/03/16 Paroxetine HCl [Paxil] 40 mg PO DAILY 06/01/16 RX: [place] Carbonate 300 mg PO QAM 06/01/16 RX: [place] Carbonate 600 mg PO BEDTIME 10/30/16 Gabapentin [Neurontin] 800 mg PO TID 01/10/18 Montelukast [Singulair] 10 mg PO DAILY #14 tab 03/08/18 predniSONE [Prednisone] 20 mg PO DAILY #5 tab 03/08/18 Review of Systems - Review of Systems Constitutional: States: no symptoms reported EENTM: States: no symptoms reported Respiratory: States: see HPI Cardiology: States: no symptoms reported Gastrointestinal/Abdominal: States: no symptoms reported Genitourinary: States: no symptoms reported Musculoskeletal: States: no symptoms reported Skin: States: no symptoms reported Neurological: States: no symptoms reported Endocrine: States: no symptoms reported Hematologic/Lymphatic: States: no symptoms reported Past Medical History (General) - Patient Medical History Hx Seizures: Yes Hx Stroke: No Hx Dementia: No Hx Asthma: No Hx of COPD: No Hx Cardiac Disorders: No Hx Congestive Heart Failure: No Hx Pacemaker: No Hx Hypertension: No Hx Thyroid Disease: No Hx Diabetes: No Hx Gastroesophageal Reflux: No Hx Renal Disease: No Hx Cancer: No Hx of HIV: No Hx Hepatitis C: No Hx MRSA: No - Vaccination History Hx Tetanus, Diphtheria Vaccination: Yes Hx Influenza Vaccination: Yes Hx Pneumococcal Vaccination: No - Social History Hx Tobacco Use: Yes Hx Chewing Tobacco Use: No Hx Alcohol Use: No Hx Substance Use: No Hx Substance Use Treatment: No Hx Depression: No Hx Physical Abuse: No Hx Emotional Abuse: No Hx Suspected Abuse: No - Female History Patient is a Female of Child Bearing Age (10 -59 yrs old): No Hx Last Menstrual Period: 02/20/17 Patient : No - BSO Family Medical History - Family History Mother Family History: Unknown Living Status: Hx Family Asthma: Yes - copd-mom Hx Family Hypertension: Yes - sister Hx Cardiac Disease: Yes Hx Family Cancer: Yes - thyroid-sister Physical Exam - Physical Exam General Appearance: Alert Ears, Nose, Throat: normal ENT inspection Neck: non-tender, full range of motion, supple Respiratory: wheezing - scattered wheezing, no rales/rhonchi Cardiovascular/Chest: regular rate, rhythm, no edema Gastrointestinal/Abdominal: normal bowel sounds, non tender, soft Progress - Progress Progress: 03/29/18 06:29 Laboratory Tests 02/08/18 02/08/18 16:32 16:32 WBC 6.6 RBC 4.29 Hgb 13.3 Hct 40.9 MCV 95.5 MCH 30.9 MCHC 32.4 L RDW 14.3 Plt Count 308 MPV 8.9 Absolute Neuts (auto) 2.70 Absolute Lymphs (auto) 3.20 Absolute Monos (auto) 0.50 Absolute Eos (auto) 0.30 Absolute Basos (auto) 0.00 Neutrophils % 40.0 L Lymphocytes % 47.5 Monocytes % 7.2 Eosinophils % 4.8 Basophils % 0.5 Sodium 139 Potassium 3.8 Chloride 108 Carbon Dioxide 27 Anion Gap 7.8 L BUN 8 Creatinine 0.70 BUN/Creatinine Ratio 11.4 Random Glucose 84 Serum Osmolality 275.1 Calcium 8.9 Total Bilirubin 0.2 AST 27 ALT 22 Alkaline Phosphatase 77 Serum Total Protein 6.7 Albumin 3.7 Globulin 3.0 Albumin/Globulin Ratio 1.2 Departure - Departure Clinical Impression: Headache Disposition: Left Against Medical Advice Condition: Fair Departure Forms: ED Discharge - Pt. Copy, Patient Portal Self Enrollment Diet: other - as per your regular doctor Activity: other - as per your regular doctor Referrals: Shante iSgala NP [Primary Care Provider] - 1-2 Weeks Home Medications: Ambulatory Orders Lamotrigine [Lamictal] 100 mg PO BID 04/03/16 Paroxetine HCl [Paxil] 40 mg PO DAILY 06/01/16 RX: [place] Carbonate 300 mg PO QAM 06/01/16 RX: [place] Carbonate 600 mg PO BEDTIME 10/30/16 Gabapentin [Neurontin] 800 mg PO TID 01/10/18 Montelukast [Singulair] 10 mg PO DAILY #14 tab 03/08/18 predniSONE [Prednisone] 20 mg PO DAILY #5 tab 03/08/18
[2018-02-08] MEDS ORDERED: LIDOCAINE 1% 2 ML VIAL INJ ONE (18:11)
[2018-02-08 18:24] VITALS: O2SAT 99
== END 2018-02-08 20:30 | disposition left against medical advice (07) ==
LOC: ER 15:13
DX: R51 Headache (principal); R05 Cough; R56.9 Unspecified convulsions; Z53.29 Procedure and treatment not carried out because of patient's decision for other reasons; Z87.01 Personal history of pneumonia (recurrent); Z79.899 Other long term (current) drug therapy; Z88.2 Allergy status to sulfonamides; Z87.891 Personal history of nicotine dependence
CPT/HCPCS: 36415; 71046; 80053; 85025; 94640; J0696; J7620

== ENCOUNTER 2018-02-12 21:36 | Emergency (ER) | payer SELFPAY ==
[2018-02-12 21:49] VITALS: BP 162/93; TEMP 98; O2SAT 100
--- NOTE | 2018-02-12 21:49 | ED.PDOC ---
History of Present Illness - General Chief Complaint: Skin/Abrasion/Tear Stated Complaint: scabies 3 wks ago, continues to itch all over Time Seen by Provider: 02/12/18 21:46 Source: patient, RN notes reviewed Additional Information: 47 YEAR OLD HERE FOR INTENSE ITCHING THAT IS GENERALISED WAS HERE ON DEC 2 TREATED SCABIES THEN CAME BACK 10 DAYS LATER WITH COMPLAINTS OF POSSIBLE ALLERGY TO PERMETHARIN THIS TIME SHE WAS GIVEN MEDROL DOSEPAK THAT SHE COMPLETED - History of Present Illness Timing/Duration: week Severity: moderate Location: torso, extremities Improving Factors: nothing Worsening Factors: nothing Associated Symptoms: itching Allergies/Adverse Reactions: Allergies Clarithromycin [From Biaxin] Allergy (Verified 02/12/18 21:49) Vomitting Sulfa Antibiotics Allergy (Verified 02/08/18 15:53) Home Medications: Ambulatory Orders Lamotrigine [Lamictal] 100 mg PO BID 04/03/16 hydrOXYzine PAMOATE [Vistaril] 50 mg PO BID 04/03/16 [place] Carbonate 300 mg PO QAM 06/01/16 Paroxetine HCl [Paxil] 40 mg PO DAILY 06/01/16 [place] Carbonate 600 mg PO BEDTIME 10/30/16 Gabapentin [Neurontin] 900 mg PO TID 01/10/18 Benzonatate Perles [Tessalon Perles] 100 mg PO Q8HRS #30 cap 02/06/18 Albuterol Inhaler [Ventolin Hfa Inhaler] 1 puff INH Q4HR PRN #1 inh 02/07/18 Prednisone [Deltasone] 20 mg PO DAILY #5 tab 02/07/18 guaiFENesin W/CODEINE LIQ [Robitussin AC] 5 ml PO Q4HR PRN #100 ml 02/07/18 levoFLOXacin [Levaquin] 500 mg PO DAILY #5 tab 02/07/18 Crotamiton [Eurax] 10 % EX Q24HR 2 Days #60 cre 02/12/18 Methylprednisolone [Medrol Dose Steve] 4 mg PO DAILY 6 Days #21 tab 02/12/18 Review of Systems - Review of Systems Constitutional: States: no symptoms reported, see HPI EENTM: States: no symptoms reported Respiratory: States: no symptoms reported Cardiology: States: no symptoms reported Gastrointestinal/Abdominal: States: no symptoms reported Genitourinary: States: no symptoms reported Musculoskeletal: States: no symptoms reported Skin: States: see HPI Neurological: States: no symptoms reported Endocrine: States: no symptoms reported Hematologic/Lymphatic: States: no symptoms reported Past Medical History (General) - Patient Medical History Hx Seizures: Yes Hx Stroke: No Hx Dementia: No Hx Asthma: No Hx of COPD: No Hx Cardiac Disorders: No Hx Congestive Heart Failure: No Hx Pacemaker: No Hx Hypertension: No Hx Thyroid Disease: No Hx Diabetes: No Hx Gastroesophageal Reflux: No Hx Renal Disease: No Hx Cancer: No Hx of HIV: No Hx Hepatitis C: No Hx MRSA: No - Vaccination History Hx Tetanus, Diphtheria Vaccination: Yes Hx Influenza Vaccination: Yes Hx Pneumococcal Vaccination: No - Social History Hx Tobacco Use: Yes Hx Chewing Tobacco Use: No Hx Alcohol Use: No Hx Substance Use: No Hx Substance Use Treatment: No Hx Depression: No Hx Physical Abuse: No Hx Emotional Abuse: No Hx Suspected Abuse: No - Female History Hx Last Menstrual Period: 02/20/17 Patient : No - BSO Family Medical History - Family History Mother Family History: Unknown Living Status: Hx Family Asthma: Yes - copd-mom Hx Family Hypertension: Yes - sister Hx Cardiac Disease: Yes Hx Family Cancer: Yes - thyroid-sister Physical Exam - Physical Exam General Appearance: Alert, Anxious Eyes, Ears, Nose, Throat Exam: PERRL/EOMI, normal ENT inspection, TMs normal, pharynx normal Neck: non-tender, full range of motion, supple, normal inspection Cardiovascular/Chest: normal peripheral pulses, regular rate, rhythm, no edema Respiratory: chest non-tender, lungs clear, normal breath sounds Gastrointestinal/Abdominal: normal bowel sounds, non tender, soft Back Exam: normal inspection, no CVA tenderness Extremity: normal range of motion, non-tender, normal inspection Skin Problem Location: neck, upper extremities, torso Skin Character: lesion, papules, rash, other - SHE HAS SCABED PAPULES IN THE DIGITS LOWER EXTREMITIES AND ON THE BACK OF HER TRUNK SHE ALSO HAS RAISED RED LESIONS SUGGESTIVE OF CONTACT DERMATITIS Lymphatic: no adenopathy Departure - Departure Clinical Impression: Scabies, Contact dermatitis Time of Disposition: 22:02 Disposition: Discharge to Home or Self Care Condition: Good Departure Forms: ED Discharge - Pt. Copy, Patient Portal Self Enrollment Activity: as per physical therapy - PLEASE FOLLOW UP WITH DERMATOLOGY IF NO IMPROVEMENT Referrals: Shante Sigala NP [Primary Care Provider] - 1-2 Weeks Home Medications: Ambulatory Orders Lamotrigine [Lamictal] 100 mg PO BID 04/03/16 hydrOXYzine PAMOATE [Vistaril] 50 mg PO BID 04/03/16 [place] Carbonate 300 mg PO QAM 06/01/16 Paroxetine HCl [Paxil] 40 mg PO DAILY 06/01/16 [place] Carbonate 600 mg PO BEDTIME 10/30/16 Gabapentin [Neurontin] 900 mg PO TID 01/10/18 Benzonatate Perles [Tessalon Perles] 100 mg PO Q8HRS #30 cap 02/06/18 Albuterol Inhaler [Ventolin Hfa Inhaler] 1 puff INH Q4HR PRN #1 inh 02/07/18 Prednisone [Deltasone] 20 mg PO DAILY #5 tab 02/07/18 guaiFENesin W/CODEINE LIQ [Robitussin AC] 5 ml PO Q4HR PRN #100 ml 02/07/18 levoFLOXacin [Levaquin] 500 mg PO DAILY #5 tab 02/07/18 Crotamiton [Eurax] 10 % EX Q24HR 2 Days #60 cre 02/12/18 Methylprednisolone [Medrol Dose Steve] 4 mg PO DAILY 6 Days #21 tab 02/12/18 Additional Instructions: PLEASE WASH ALL YOUR CLOTHS BED LINEN IN WARM WATER
[2018-02-12] MEDS ORDERED: diphenhydrAMINE HCL 50 MG/ML VIAL ONE (21:51)
[2018-02-12] MEDS ORDERED: DEXAMETHASONE INJ 10 MG/ML VIAL ONE (21:51)
[2018-02-12] MEDS ORDERED: diphenhydrAMINE HCL 50 MG/ML VIAL IM ONE (21:52)
[2018-02-12] MEDS ORDERED: DEXAMETHASONE INJ 10 MG/ML VIAL IM ONE (21:53)
== END 2018-02-12 22:21 | disposition home or self-care (01) ==
LOC: ER 21:36
DX: B86 Scabies (principal); L25.9 Unspecified contact dermatitis, unspecified cause; Z79.899 Other long term (current) drug therapy; Z88.1 Allergy status to other antibiotic agents; Z88.2 Allergy status to sulfonamides; Z87.891 Personal history of nicotine dependence
CPT/HCPCS: J1100; J1200

== ENCOUNTER → 2018-03-07 | Emergency (ER) | payer SELFPAY | LOC: ER 19:34 | DX: L29.9 Pruritus, unspecified (principal); Z53.21 Procedure and treatment not carried out due to patient leaving prior to being seen by health care provider ==

== ENCOUNTER 2018-03-08 17:23 | Emergency (ER) | payer SELFPAY ==
[2018-03-08] MEDS ORDERED: MONTELUKAST 10 MG TAB PO ONE (17:48)
[2018-03-08] MEDS ORDERED: predniSONE 20 MG TAB PO ONE (17:48)
[2018-03-08] MEDS ORDERED: hydrOXYzine HCl 25 MG TAB PO ONE (17:49)
[2018-03-08 17:51] VITALS: BP 138/77; TEMP 97.5; O2SAT 100
--- NOTE | 2018-03-08 17:52 | ED.PDOC ---
History of Present Illness - General Chief Complaint: Skin/Abrasion/Tear Stated Complaint: generalized itching all over Time Seen by Provider: 03/08/18 17:39 Source: patient Exam Limitations: no limitations - History of Present Illness Initial Comments: the patient is a 47-year-old female presenting again secondary to itching of her skin. There are no lesions in the webbing of her hands or in the flexural surfaces. The patient does have dry skin. She does report having seen a few bugs on her bed that are very very tiny. She does have a cat and is uncertain if the cat has fleas. I see no evidence of any lice in her hair. Timing/Duration: other - 3 days Severity: moderate Improving Factors: nothing Worsening Factors: nothing Associated Symptoms: denies symptoms Allergies/Adverse Reactions: Allergies Clarithromycin [From Biaxin] Allergy (Verified 02/12/18 21:49) Vomitting Sulfa Antibiotics Allergy (Verified 02/08/18 15:53) Home Medications: Ambulatory Orders Lamotrigine [Lamictal] 100 mg PO BID 04/03/16 hydrOXYzine PAMOATE [Vistaril] 50 mg PO BID 04/03/16 [place] Carbonate 300 mg PO QAM 06/01/16 Paroxetine HCl [Paxil] 40 mg PO DAILY 06/01/16 [place] Carbonate 600 mg PO BEDTIME 10/30/16 Gabapentin [Neurontin] 900 mg PO TID 01/10/18 Benzonatate Perles [Tessalon Perles] 100 mg PO Q8HRS #30 cap 02/06/18 Albuterol Inhaler [Ventolin Hfa Inhaler] 1 puff INH Q4HR PRN #1 inh 02/07/18 Prednisone [Deltasone] 20 mg PO DAILY #5 tab 02/07/18 guaiFENesin W/CODEINE LIQ [Robitussin AC] 5 ml PO Q4HR PRN #100 ml 02/07/18 levoFLOXacin [Levaquin] 500 mg PO DAILY #5 tab 02/07/18 Crotamiton [Eurax] 10 % EX Q24HR 2 Days #60 cre 02/12/18 Methylprednisolone [Medrol Dose Steve] 4 mg PO DAILY 6 Days #21 tab 02/12/18 Montelukast [Singulair] 10 mg PO DAILY #14 tab 03/08/18 predniSONE [Prednisone] 20 mg PO DAILY #5 tab 03/08/18 Review of Systems - Review of Systems Constitutional: States: no symptoms reported EENTM: States: no symptoms reported Respiratory: States: no symptoms reported Cardiology: States: no symptoms reported Gastrointestinal/Abdominal: States: no symptoms reported Genitourinary: States: no symptoms reported Musculoskeletal: States: no symptoms reported Skin: States: see HPI Neurological: States: no symptoms reported, anxiety Endocrine: States: no symptoms reported All other Systems: No Change from Baseline Past Medical History (General) - Patient Medical History Hx Seizures: Yes Hx Stroke: No Hx Dementia: No Hx Asthma: No Hx of COPD: No Hx Cardiac Disorders: No Hx Congestive Heart Failure: No Hx Pacemaker: No Hx Hypertension: No Hx Thyroid Disease: No Hx Diabetes: No Hx Gastroesophageal Reflux: No Hx Renal Disease: No Hx Cancer: No Hx of HIV: No Hx Hepatitis C: No Hx MRSA: No - Vaccination History Hx Tetanus, Diphtheria Vaccination: Yes Hx Influenza Vaccination: Yes Hx Pneumococcal Vaccination: No - Social History Hx Tobacco Use: Yes Hx Chewing Tobacco Use: No Hx Alcohol Use: No Hx Substance Use: No Hx Substance Use Treatment: No Hx Depression: No Hx Physical Abuse: No Hx Emotional Abuse: No Hx Suspected Abuse: No - Female History Hx Last Menstrual Period: 02/20/17 Patient : No - BSO Family Medical History - Family History Mother Family History: Unknown Living Status: Hx Family Asthma: Yes - copd-mom Hx Family Hypertension: Yes - sister Hx Cardiac Disease: Yes Hx Family Cancer: Yes - thyroid-sister Physical Exam - Physical Exam General Appearance: Alert, Anxious, No apparent distress Eye Exam: bilateral normal Ears, Nose, Throat: hearing grossly normal, normal pharynx Neck: full range of motion, supple Respiratory: no respiratory distress, no accessory muscle use Cardiovascular/Chest: normal peripheral pulses, no edema, other - regular rate Peripheral Pulses: radial,right: 2+, radial,left: 2+ Gastrointestinal/Abdominal: non tender, soft Rectal Exam: deferred Back Exam: normal inspection Extremity: non-tender, no pedal edema, no calf tenderness, normal capillary refill 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 No significant papules pustules or blisters. Comments: Vital Signs - 24 hr 03/08/18 17:32 Temperature 97.5 F L Pulse Rate [ 76 Right Radial] Respiratory 16 Rate Blood Pressure 138/77 [Left Arm] O2 Sat by Pulse 100 Oximetry Progress - Progress Progress: 03/08/18 17:52 the patient is a 47-year-old female presenting secondary to pruritus. Given the information presented today it is more likely that the patient has bedbugs causing her symptoms than anything else at this point. She does need to wash her linens in high heat. She also may need to discard old pillows and an old mattress as this can be a source of recurrence. She can contact an segmental wall installer if necessary. Steam cleaning the carpets may also help. She will be written for prednisone 20 mg daily for the next 5 days. Additionally I will go ahead and write her for Singulair for the next few weeks to suppress any allergic reaction further. She can use [id number] Cetaphil to help with the dry skin. ER warnings were given. Keep routine follow-up with primary care doctor. Departure - Departure Clinical Impression: Bedbug bite Qualifiers: Encounter type: initial encounter Qualified Code(s): W57.XXXA - Bitten or stung by nonvenomous insect and other nonvenomous arthropods, initial encounter Disposition: Discharge to Home or Self Care Condition: Fair Departure Forms: ED Discharge - Pt. Copy, Patient Portal Self Enrollment Instructions: Bedbugs Diet: regular diet Activity: increase activity as tolerated Referrals: Shante Sigala NP [Primary Care Provider] - 1-2 Weeks Prescriptions: Montelukast [Singulair] 10 mg PO DAILY #14 tab predniSONE [Prednisone] 20 mg PO DAILY #5 tab Home Medications: Ambulatory Orders Lamotrigine [Lamictal] 100 mg PO BID 04/03/16 hydrOXYzine PAMOATE [Vistaril] 50 mg PO BID 04/03/16 [place] Carbonate 300 mg PO QAM 06/01/16 Paroxetine HCl [Paxil] 40 mg PO DAILY 06/01/16 [place] Carbonate 600 mg PO BEDTIME 10/30/16 Gabapentin [Neurontin] 900 mg PO TID 01/10/18 Benzonatate Perles [Tessalon Perles] 100 mg PO Q8HRS #30 cap 02/06/18 Albuterol Inhaler [Ventolin Hfa Inhaler] 1 puff INH Q4HR PRN #1 inh 02/07/18 Prednisone [Deltasone] 20 mg PO DAILY #5 tab 02/07/18 guaiFENesin W/CODEINE LIQ [Robitussin AC] 5 ml PO Q4HR PRN #100 ml 02/07/18 levoFLOXacin [Levaquin] 500 mg PO DAILY #5 tab 02/07/18 Crotamiton [Eurax] 10 % EX Q24HR 2 Days #60 cre 02/12/18 Methylprednisolone [Medrol Dose Steve] 4 mg PO DAILY 6 Days #21 tab 02/12/18 Montelukast [Singulair] 10 mg PO DAILY #14 tab 03/08/18 predniSONE [Prednisone] 20 mg PO DAILY #5 tab 03/08/18 Additional Instructions: the patient is a 47-year-old female presenting secondary to pruritus. Given the information presented today it is more likely that the patient has bedbugs causing her symptoms than anything else at this point. She does need to wash her linens in high heat. She also may need to discard old pillows and an old mattress as this can be a source of recurrence. She can contact an segmental wall installer if necessary. Steam cleaning the carpets may also help. She will be written for prednisone 20 mg daily for the next 5 days. Additionally I will go ahead and write her for Singulair for the next few weeks to suppress any allergic reaction further. She can use [id number] Cetaphil to help with the dry skin. ER warnings were given. Keep routine follow-up with primary care doctor.
== END 2018-03-08 18:16 | disposition home or self-care (01) ==
LOC: ER 17:23
DX: T14.8XXA Other injury of unspecified body region, initial encounter (principal); W57.XXXA Bitten or stung by nonvenomous insect and other nonvenomous arthropods, initial encounter; Z87.891 Personal history of nicotine dependence; Y92.9 Unspecified place or not applicable

== ENCOUNTER 2018-08-15 19:11 | Emergency (ER) | payer SELFPAY ==
[2018-08-15 19:30] VITALS: TEMP 99.3
--- NOTE | 2018-08-15 19:39 | ED.PDOC ---
History of Present Illness - General Chief Complaint: General Stated Complaint: right pinky toe pain for 1 month Time Seen by Provider: 08/15/18 19:34 Source: patient - History of Present Illness Initial Comments: Pt has pain in R 5th toe x 1 month. Denies trauma, gout or arthritis Severity: moderate Improving Factors: rest Worsening Factors: movement Associated Symptoms: denies symptoms Allergies/Adverse Reactions: Allergies Clarithromycin [From Biaxin] Allergy (Verified 08/15/18 19:30) Vomitting Sulfa Antibiotics Allergy (Verified 02/08/18 15:53) Home Medications: Ambulatory Orders Lamotrigine [Lamictal] 100 mg PO BID 04/03/16 [place] Carbonate 300 mg PO QAM 06/01/16 Paroxetine HCl [Paxil] 40 mg PO DAILY 06/01/16 [place] Carbonate 600 mg PO BEDTIME 10/30/16 Gabapentin [Neurontin] 800 mg PO TID 01/10/18 Montelukast [Singulair] 10 mg PO DAILY #14 tab 03/08/18 predniSONE [Prednisone] 20 mg PO DAILY #5 tab 03/08/18 Dicyclomine HCl [Bentyl] 20 mg PO TID PRN #20 tab 06/30/18 Promethazine Tab [Phenergan Tablet] 25 mg PO Q6H PRN #15 tab 06/30/18 Dicyclomine HCl [Bentyl] 20 mg PO Q8HRS #30 tab 07/04/18 Nitrofurantoin Monohydrate Mac [Macrobid] 100 mg PO BID #20 capsule 07/04/18 Indomethacin [Indocin] 50 mg [place] TID PRN #20 sup 08/15/18 Review of Systems - Review of Systems Constitutional: States: no symptoms reported EENTM: States: no symptoms reported Genitourinary: Denies: dysuria Musculoskeletal: States: joint pain. Denies: gout, muscle pain Skin: Denies: change in color, lesions, lumps, rash Neurological: Denies: numbness, paresthesia Endocrine: States: no symptoms reported Hematologic/Lymphatic: States: no symptoms reported Past Medical History (General) - Patient Medical History Hx Seizures: Yes Hx Stroke: No Hx Dementia: No Hx Asthma: No Hx of COPD: No Hx Cardiac Disorders: No Hx Congestive Heart Failure: No Hx Pacemaker: No Hx Hypertension: No Hx Thyroid Disease: Yes Hx Diabetes: No Hx Gastroesophageal Reflux: No Hx Renal Disease: No Hx Cancer: No Hx of HIV: No Hx Hepatitis C: No Hx MRSA: No - Vaccination History Hx Tetanus, Diphtheria Vaccination: No Hx Influenza Vaccination: Yes Hx Pneumococcal Vaccination: No - Social History Hx Tobacco Use: Yes Hx Chewing Tobacco Use: No Hx Alcohol Use: No Hx Substance Use: No Hx Substance Use Treatment: No Hx Depression: No Hx Physical Abuse: No Hx Emotional Abuse: No Hx Suspected Abuse: No - Female History Hx Last Menstrual Period: 02/20/17 Patient : No - BSO Family Medical History - Family History Mother Family History: Unknown Living Status: Hx Family Asthma: Yes - copd-mom Hx Family Hypertension: Yes - sister Hx Cardiac Disease: Yes Hx Family Cancer: Yes - thyroid-sister Physical Exam - Physical Exam General Appearance: Alert, Comfortable Extremity: normal range of motion, no pedal edema, other - tender R 5th toe with trace edema, no erythema or skin lesions, foot neg on exam Departure - Departure Clinical Impression: Nondisp fx distal phalanx lesser toe right foot w/routine heal Qualifiers: Fracture type: closed Qualified Code(s): S92.534D - Nondisplaced fracture of distal phalanx of right lesser toe(s), subsequent encounter for fracture with routine healing Disposition: Discharge to Home or Self Care Departure Forms: ED Discharge - Pt. Copy, Patient Portal Self Enrollment Referrals: Shante Sigala NP [Primary Care Provider] - 1-2 Weeks Prescriptions: Indomethacin [Indocin] 50 mg [place] TID PRN #20 sup PRN Reason: Pain -- Moderate Home Medications: Ambulatory Orders Lamotrigine [Lamictal] 100 mg PO BID 04/03/16 [place] Carbonate 300 mg PO QAM 06/01/16 Paroxetine HCl [Paxil] 40 mg PO DAILY 06/01/16 [place] Carbonate 600 mg PO BEDTIME 10/30/16 Gabapentin [Neurontin] 800 mg PO TID 01/10/18 Montelukast [Singulair] 10 mg PO DAILY #14 tab 03/08/18 predniSONE [Prednisone] 20 mg PO DAILY #5 tab 03/08/18 Dicyclomine HCl [Bentyl] 20 mg PO TID PRN #20 tab 06/30/18 Promethazine Tab [Phenergan Tablet] 25 mg PO Q6H PRN #15 tab 06/30/18 Dicyclomine HCl [Bentyl] 20 mg PO Q8HRS #30 tab 07/04/18 Nitrofurantoin Monohydrate Mac [Macrobid] 100 mg PO BID #20 capsule 07/04/18 Indomethacin [Indocin] 50 mg [place] TID PRN #20 sup 08/15/18
--- NOTE | 2018-08-15 20:20 | RAD ---
EXAM DESCRIPTION: Toes,Right CLINICAL HISTORY: 47 years Female 5th toe pain COMPARISON: None TECHNIQUE: Three images of the right fifth toe were obtained. FINDINGS: Subtle linear lucency distal head proximal phalanx fifth toe consistent with fracture. Fusion DIP joint fifth toe. Additional bone fragment adjacent to medial aspect PIP joint fifth toe also suspicious for fracture. Normal bony mineralization. No erosive or lytic lesions seen. IMPRESSION: Findings consistent with fracture distal head proximal phalanx fifth toe. Additional suspected chip fracture PIP joint fifth toe. Electronically signed by: Geovanna Jarrell MD 08/15/2018 8:18 PM CDT
[2018-08-15 20:46] VITALS: BP 113/72; O2SAT 99
== END 2018-08-15 20:35 | disposition home or self-care (01) ==
LOC: ER 19:11
DX: S92.534A Nondisplaced fracture of distal phalanx of right lesser toe(s), initial encounter for closed fracture (principal); R56.9 Unspecified convulsions; E07.9 Disorder of thyroid, unspecified; Z87.891 Personal history of nicotine dependence; Z79.899 Other long term (current) drug therapy; Z88.1 Allergy status to other antibiotic agents; Z88.2 Allergy status to sulfonamides; X58.XXXA Exposure to other specified factors, initial encounter; Y92.9 Unspecified place or not applicable

== ENCOUNTER 2018-09-12 16:14 | Emergency (ER) | payer SELFPAY ==
--- NOTE | 2018-09-12 16:35 | ED.PDOC ---
History of Present Illness - General Chief Complaint: Back Pain or Injury Stated Complaint: back pain Time Seen by Provider: 09/12/18 16:22 Source: patient Exam Limitations: no limitations - History of Present Illness Initial Comments: Shannon Caldwell 47 y/o female came to ER after she noticed bruising on right side of hip after rolling off her bed fell on her right side landing on a make up box drawer on the floor.Stated had burning pains on her lower back with bruising right side of her hip.Denies neck,head,chest pains or injuries. Occurred: other - 3 days ago Pain - Lower Extremity: moderate: Right Thigh/Hip Method of Injury: fell Improving Factors: rest Worsening Factors: movement Associated Symptoms: see hpi Allergies/Adverse Reactions: Allergies Clarithromycin [From Biaxin] Allergy (Verified 09/12/18 16:49) Vomitting Sulfa Antibiotics Allergy (Verified 09/12/18 16:49) Home Medications: Ambulatory Orders Lamotrigine [Lamictal] 100 mg PO BID 04/03/16 [place] Carbonate 300 mg PO QAM 06/01/16 Paroxetine HCl [Paxil] 40 mg PO DAILY 06/01/16 [place] Carbonate 600 mg PO BEDTIME 10/30/16 Gabapentin [Neurontin] 800 mg PO TID 01/10/18 Montelukast [Singulair] 10 mg PO DAILY #14 tab 03/08/18 predniSONE [Prednisone] 20 mg PO DAILY #5 tab 03/08/18 Dicyclomine HCl [Bentyl] 20 mg PO TID PRN #20 tab 06/30/18 Promethazine Tab [Phenergan Tablet] 25 mg PO Q6H PRN #15 tab 06/30/18 Dicyclomine HCl [Bentyl] 20 mg PO Q8HRS #30 tab 07/04/18 Nitrofurantoin Monohydrate Mac [Macrobid] 100 mg PO BID #20 capsule 07/04/18 Indomethacin [Indocin] 50 mg [place] TID PRN #20 sup 08/15/18 Acetaminophen W/ Codeine [Tylenol/Codeine #4 300-60 mg] 1 ea PO ONCE PRN #7 tab 09/12/18 Review of Systems - Review of Systems Musculoskeletal: States: back pain, joint pain All other Systems: Reviewed and Negative, No Change from Baseline Past Medical History (General) - Patient Medical History Hx Seizures: Yes Hx Stroke: No Hx Dementia: No Hx Asthma: No Hx of COPD: No Hx Cardiac Disorders: No Hx Congestive Heart Failure: No Hx Pacemaker: No Hx Hypertension: No Hx Thyroid Disease: Yes Hx Diabetes: No Hx Gastroesophageal Reflux: No Hx Renal Disease: No Hx Cancer: No Hx of HIV: No Hx Hepatitis C: No Hx MRSA: No Surgical History: other - ankle - Vaccination History Hx Tetanus, Diphtheria Vaccination: No Hx Influenza Vaccination: Yes Hx Pneumococcal Vaccination: No - Social History Hx Tobacco Use: Yes Hx Chewing Tobacco Use: No Hx Alcohol Use: No Hx Substance Use: No Hx Substance Use Treatment: No Hx Depression: No Hx Physical Abuse: No Hx Emotional Abuse: No Hx Suspected Abuse: No - Female History Hx Last Menstrual Period: 02/20/17 - menopausal Patient : No - BSO Family Medical History - Family History Mother Family History: Unknown Living Status: Hx Family Asthma: Yes - copd-mom Hx Family Hypertension: Yes - sister Hx Cardiac Disease: Yes Hx Family Cancer: Yes - thyroid-sister Departure - Departure Clinical Impression: Contusion of lower back and pelvis, initial encounter Fall from bed Qualifiers: Encounter type: initial encounter Qualified Code(s): W06.XXXA - Fall from bed, initial encounter Time of Disposition: 18:15 Disposition: Discharge to Home or Self Care Condition: Fair Departure Forms: ED Discharge - Pt. Copy, Patient Portal Self Enrollment Instructions: Contusion (DC), Taking Care of Bruises Referrals: Shante Sigala NP [Primary Care Provider] - 1-2 Weeks Prescriptions: Acetaminophen W/ Codeine [Tylenol/Codeine #4 300-60 mg] 1 ea PO ONCE PRN #7 tab PRN Reason: Pain Home Medications: Ambulatory Orders Lamotrigine [Lamictal] 100 mg PO BID 04/03/16 [place] Carbonate 300 mg PO QAM 06/01/16 Paroxetine HCl [Paxil] 40 mg PO DAILY 06/01/16 [place] Carbonate 600 mg PO BEDTIME 10/30/16 Gabapentin [Neurontin] 800 mg PO TID 01/10/18 Montelukast [Singulair] 10 mg PO DAILY #14 tab 03/08/18 predniSONE [Prednisone] 20 mg PO DAILY #5 tab 03/08/18 Dicyclomine HCl [Bentyl] 20 mg PO TID PRN #20 tab 06/30/18 Promethazine Tab [Phenergan Tablet] 25 mg PO Q6H PRN #15 tab 06/30/18 Dicyclomine HCl [Bentyl] 20 mg PO Q8HRS #30 tab 07/04/18 Nitrofurantoin Monohydrate Mac [Macrobid] 100 mg PO BID #20 capsule 07/04/18 Indomethacin [Indocin] 50 mg [place] TID PRN #20 sup 08/15/18 Acetaminophen W/ Codeine [Tylenol/Codeine #4 300-60 mg] 1 ea PO ONCE PRN #7 tab 09/12/18 Additional Instructions: Follow up with primary Md 16 September 2018 for recheck as needed
--- NOTE | 2018-09-12 18:11 | RAD ---
EXAM DESCRIPTION: XR Hip,Right 2 Views (accession [id number]), XR Lumbar Spine 3 Views (accession [id number]) CLINICAL HISTORY: 47 years Female, fall/pain COMPARISON: None except for abdominal film dated July 07, 2018. FINDINGS: 2 views of the right hip demonstrate no evidence of acute fracture or dislocation or destructive bony lesion. The hip joint space is maintained. The femoral head cortex appears smooth. 3 views of the lumbar spine demonstrate no evidence of acute fracture or dislocation or destructive bony lesion. Vertebral body and interspace heights and alignment appear fairly well maintained, with perhaps mild straightening of the usual lordosis. There is minimal anterior vertebral spurring in the mid and lower lumbar spine and possible slight hypertrophic bony change in mid lumbar posterior elements. IMPRESSION: No evidence of acute osseous injury. Electronically signed by: Reese Brandon MD 09/12/2018 6:10 PM CDT
--- NOTE | 2018-09-12 18:11 | RAD ---
EXAM DESCRIPTION: XR Hip,Right 2 Views (accession [id number]), XR Lumbar Spine 3 Views (accession [id number]) CLINICAL HISTORY: 47 years Female, fall/pain COMPARISON: None except for abdominal film dated July 07, 2018. FINDINGS: 2 views of the right hip demonstrate no evidence of acute fracture or dislocation or destructive bony lesion. The hip joint space is maintained. The femoral head cortex appears smooth. 3 views of the lumbar spine demonstrate no evidence of acute fracture or dislocation or destructive bony lesion. Vertebral body and interspace heights and alignment appear fairly well maintained, with perhaps mild straightening of the usual lordosis. There is minimal anterior vertebral spurring in the mid and lower lumbar spine and possible slight hypertrophic bony change in mid lumbar posterior elements. IMPRESSION: No evidence of acute osseous injury. Electronically signed by: Reese Brandon MD 09/12/2018 6:10 PM CDT
[2018-09-12] MEDS ORDERED: HYDROCOD/APAP 7.5/325 (ER DISP) #3 TAB PO ONE (18:16)
[2018-09-12 18:32] VITALS: BP 156/86; TEMP 97.6; O2SAT 99
== END 2018-09-12 18:31 | disposition home or self-care (01) ==
LOC: ER 16:14
DX: S30.0XXA Contusion of lower back and pelvis, initial encounter (principal); E07.9 Disorder of thyroid, unspecified; W06.XXXA Fall from bed, initial encounter; Z87.891 Personal history of nicotine dependence; Z79.899 Other long term (current) drug therapy; Z88.2 Allergy status to sulfonamides; Y92.9 Unspecified place or not applicable

== ENCOUNTER 2018-10-09 00:15 | Emergency (ER) | payer SELFPAY ==
[2018-10-09 01:05] VITALS: BP 137/87; TEMP 98.6; O2SAT 95
== END 2018-10-09 01:00 | disposition home or self-care (01) ==
LOC: ER 00:15
DX: L03.115 Cellulitis of right lower limb (principal); E07.9 Disorder of thyroid, unspecified; R56.9 Unspecified convulsions; Z87.891 Personal history of nicotine dependence; Z79.899 Other long term (current) drug therapy; Z88.2 Allergy status to sulfonamides

== ENCOUNTER 2018-10-10 21:11 | Emergency (ER) | payer SELFPAY ==
[2018-10-10] MEDS ORDERED: POVIDONE IODINE 10 % 15 ML UD TOP ONE (22:02)
[2018-10-10] MEDS ORDERED: LIDOCAINE 1% 10 ML VIAL INJ ONE (22:10)
[2018-10-10] MEDS ORDERED: NEOMYCIN-BACITRACIN-POLYMYXIN 0.9 GM UD TOP ONE (22:14)
--- NOTE | 2018-10-10 22:21 | ED.PDOC ---
History of Present Illness - General Chief Complaint: Skin/Abrasion/Tear Stated Complaint: Fever, toe pain Time Seen by Provider: 10/10/18 21:54 Source: patient Exam Limitations: no limitations Additional Information: 47 yo F with toe pain. The patient was recently diagnosed with cellulitis. She was started on Clinda. She reports improved redness, but feels like her toe is more swollen and may have a fluid pocket. She denies fever. No other reported issues. - History of Present Illness Severity: mild Location: feet - R 5th toe Allergies/Adverse Reactions: Allergies Clarithromycin [From Biaxin] Allergy (Verified 09/12/18 16:49) Vomitting Sulfa Antibiotics Allergy (Verified 09/12/18 16:49) Home Medications: Ambulatory Orders [place] Carbonate 300 mg PO QAM 06/01/16 [place] Carbonate 600 mg PO BEDTIME 10/30/16 Acetaminophen W/ Codeine [Tylenol/Codeine #4 300-60 mg] 1 ea PO ONCE PRN #7 tab 09/12/18 Ciprofloxacin [Cipro] 500 mg PO BID #20 tab 10/09/18 Clindamycin HCl 300 mg PO Q8HR #30 cap 10/09/18 Levothyroxine Sodium [Levoxyl] 100 mcg PO DAILY 10/10/18 Review of Systems - Review of Systems Constitutional: Denies: chills, fever EENTM: States: no symptoms reported Respiratory: Denies: cough, short of breath Cardiology: Denies: chest pain, palpitations Gastrointestinal/Abdominal: Denies: nausea, vomiting Genitourinary: States: no symptoms reported Musculoskeletal: Denies: joint pain, joint swelling Skin: States: change in color, lesions. Denies: rash Neurological: Denies: numbness, weakness Past Medical History (General) - Patient Medical History Hx Seizures: Yes Hx Stroke: No Hx Dementia: No Hx Asthma: No Hx of COPD: No Hx Cardiac Disorders: No Hx Congestive Heart Failure: No Hx Pacemaker: No Hx Hypertension: No Hx Thyroid Disease: Yes Hx Diabetes: No Hx Gastroesophageal Reflux: No Hx Renal Disease: No Hx Cancer: No Hx of HIV: No Hx Hepatitis C: No Hx MRSA: No - Vaccination History Hx Tetanus, Diphtheria Vaccination: No Hx Influenza Vaccination: No Hx Pneumococcal Vaccination: No Immunizations Up to Date: No - Social History Hx Tobacco Use: Yes Hx Chewing Tobacco Use: No Hx Alcohol Use: Yes Hx Substance Use: No Hx Substance Use Treatment: No Hx Depression: No Hx Physical Abuse: No Hx Emotional Abuse: No Hx Suspected Abuse: No - Female History Hx Last Menstrual Period: 02/20/17 - menopausal Patient : No - Triage Comment ED Triage Comment: Seen Thursday for toe cellulitis, started antibiotics yesterday, told to return if developed fever Family Medical History - Family History Mother Family History: Unknown Living Status: Hx Family Asthma: Yes - copd-mom Hx Family Hypertension: Yes - sister Hx Cardiac Disease: Yes Hx Family Cancer: Yes - thyroid-sister Physical Exam - Physical Exam General Appearance: Alert, Well Developed, Well Nourished Eyes, Ears, Nose, Throat Exam: PERRL/EOMI, pharynx normal Neck: non-tender, full range of motion, supple Cardiovascular/Chest: normal peripheral pulses, regular rate, rhythm Respiratory: chest non-tender, lungs clear Gastrointestinal/Abdominal: non tender, soft Extremity: other - R 5th toe tender, mild erythema, nl cap refill Neurologic: no motor/sensory deficits, oriented x 3 Skin Exam: other - The is a small area of fluctuance to the medial aspect of R 5th toe confirmed by US Skin Character: abscess Progress - Progress Progress: 10/10/18 22:27 The patient had an abscess that was drained without complication. She has been on clinda for 2 days with otherwise good result. She is to continue the medication as prescribed. She is to return for any new or worsening symptoms. Procedures - Incision and Drainage #1 Site: R 5th toe Procedure and Prep: betadine prep, pus drained Blade Size: 11 Procedure Comments: A stab incision was made after anesth the area with 1% lidocaine. Moderate amount of purlent drainage obtained. Not amenable to packing. Tolerated well. Departure - Departure Clinical Impression: Abscess Cellulitis Qualifiers: Site of cellulitis: unspecified site Qualified Code(s): L03.90 - Cellulitis, u nspecified Time of Disposition: 22:28 Disposition: Discharge to Home or Self Care Condition: Good Departure Forms: ED Discharge - Pt. Copy, Patient Portal Self Enrollment Instructions: Abscess Incision and Drainage (DC) Referrals: Shante Sigala NP [Primary Care Provider] - 1-2 Weeks Home Medications: Ambulatory Orders [place] Carbonate 300 mg PO QAM 06/01/16 [place] Carbonate 600 mg PO BEDTIME 10/30/16 Acetaminophen W/ Codeine [Tylenol/Codeine #4 300-60 mg] 1 ea PO ONCE PRN #7 tab 09/12/18 Ciprofloxacin [Cipro] 500 mg PO BID #20 tab 10/09/18 Clindamycin HCl 300 mg PO Q8HR #30 cap 10/09/18 Levothyroxine Sodium [Levoxyl] 100 mcg PO DAILY 10/10/18
[2018-10-10 22:44] VITALS: BP 130/77; TEMP 98.5; O2SAT 96
== END 2018-10-10 22:40 | disposition home or self-care (01) ==
LOC: ER 21:11
DX: L02.611 Cutaneous abscess of right foot (principal); R56.9 Unspecified convulsions; E07.9 Disorder of thyroid, unspecified; Z87.891 Personal history of nicotine dependence; Z79.899 Other long term (current) drug therapy; Z88.2 Allergy status to sulfonamides; Z88.1 Allergy status to other antibiotic agents

== ENCOUNTER 2018-11-10 17:26 | Emergency (ER) | payer SELFPAY ==
[2018-11-10 17:38] VITALS: TEMP 98.7
[2018-11-10] MEDS ORDERED: LIDOCAINE/PRILOCAINE 2.5% 30 GM TUBE TOP ONE (17:40)
[2018-11-10] MEDS ORDERED: CLINDAMYCIN PHOSPHATE 150 MG/ML VIAL IM ONE (17:59)
[2018-11-10 18:19] VITALS: BP 135/85; O2SAT 97
--- NOTE | 2018-11-10 18:19 | ED.PDOC ---
History of Present Illness - General Chief Complaint: General Stated Complaint: R 5th toe skin irritation Time Seen by Provider: 11/10/18 18:16 Source: patient, RN notes reviewed, Vital Signs reviewed - History of Present Illness Initial Comments: patient presents with complaints of right fifth toe pain and swelling. This started over the last day and a half. It is worsening. The pain is throbbing i n nature. It is severe. Worse with palpation better when she elevates the foot. In, shortness of breath. Patient states that she's had something similar in the past and she thought it was cellulitis and wanted to catch this before got too bad. Timing/Duration: 24 hours Severity: severe Improving Factors: other - elevation Worsening Factors: movement Associated Symptoms: denies symptoms Allergies/Adverse Reactions: Allergies Clarithromycin [From Biaxin] Allergy (Verified 09/12/18 16:49) Vomitting Sulfa Antibiotics Allergy (Verified 09/12/18 16:49) Home Medications: Ambulatory Orders [place] Carbonate 300 mg PO QAM 06/01/16 [place] Carbonate 600 mg PO BEDTIME 10/30/16 Levothyroxine Sodium [Levoxyl] 100 mcg PO DAILY 10/10/18 Clindamycin HCl 300 mg PO QID #40 cap 11/10/18 Review of Systems - Review of Systems Constitutional: States: no symptoms reported, see HPI EENTM: States: no symptoms reported, see HPI Respiratory: States: no symptoms reported, see HPI Cardiology: States: no symptoms reported, see HPI Gastrointestinal/Abdominal: States: see HPI Genitourinary: States: no symptoms reported, see HPI Musculoskeletal: States: other - right fifth toe with swelling and tenderness to palpation. Skin: States: other - right fifth toe with tenderness and swelling and tenderness to palpation. All other Systems: Reviewed and Negative Past Medical History (General) - Patient Medical History Hx Seizures: Yes Hx Stroke: No Hx Dementia: No Hx Asthma: No Hx of COPD: No Hx Cardiac Disorders: No Hx Congestive Heart Failure: No Hx Pacemaker: No Hx Hypertension: No Hx Thyroid Disease: Yes Hx Diabetes: No Hx Gastroesophageal Reflux: No Hx Renal Disease: No Hx Cancer: No Hx of HIV: No Hx Hepatitis C: No Hx MRSA: No - Vaccination History Hx Tetanus, Diphtheria Vaccination: No Hx Influenza Vaccination: No Hx Pneumococcal Vaccination: No - Social History Hx Tobacco Use: Yes Hx Chewing Tobacco Use: No Hx Alcohol Use: Yes Hx Substance Use: No Hx Substance Use Treatment: No Hx Depression: No Hx Physical Abuse: No Hx Emotional Abuse: No Hx Suspected Abuse: No - Female History Patient is a Female of Child Bearing Age (10 -59 yrs old): No - Menopause Hx Last Menstrual Period: 02/20/17 - menopausal Patient : No Family Medical History - Family History Mother Family History: Unknown Living Status: Hx Family Asthma: Yes - copd-mom Hx Family Hypertension: Yes - sister Hx Cardiac Disease: Yes Hx Family Cancer: Yes - thyroid-sister Physical Exam - Physical Exam General Appearance: Alert, Anxious, Well Developed, Well Groomed, Well Hydrated, Well Nourished Eye Exam: bilateral normal Ears, Nose, Throat: hearing grossly normal, normal ENT inspection, normal pharynx Neck: full range of motion, supple, normal inspection Respiratory: lungs clear, normal breath sounds, no respiratory distress Cardiovascular/Chest: normal peripheral pulses, regular rate, rhythm, no edema, no gallop Peripheral Pulses: radial,right: 2+, radial,left: 2+ Back Exam: no CVA tenderness, no vertebral tenderness Extremity: normal range of motion, normal capillary refill, swelling, other - patient with a small abscess on the right fifth toe on the dorsum with fluctuance. There is a small surrounding area cellulitis. Between the fourth and fifth toe the patient does have tinea pedis. 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 Lymphatic: no adenopathy Progress - Progress Progress: 11/10/18 18:29 she tolerated the procedure well of the I&D of the abscess on her foot and is discharged home. Cultures have been taken. On clindamycin Moreno Albert M.D. #[id number] Procedures - Incision and Drainage #1 Site: right fifth toe Procedure and Prep: wound culture collected, pus drained Blade Size: 11 Procedure Comments: she tolerated the procedure well. Departure - Departure Clinical Impression: Abscess of toe of right foot, Cellulitis of fifth toe, right Tinea pedis Qualifiers: Laterality: right Qualified Code(s): B35.3 - Tinea pedis Time of Disposition: 18:27 Disposition: Discharge to Home or Self Care Condition: Good Departure Forms: ED Discharge - Pt. Copy, Patient Portal Self Enrollment Instructions: Abscess Drainage, Percutaneous (DC), Cellulitis (Skin Infection), Adult (DC) Referrals: Shante Sigala NP [Primary Care Provider] - 1-2 Weeks Prescriptions: Clindamycin HCl 300 mg PO QID #40 cap Home Medications: Ambulatory Orders [place] Carbonate 300 mg PO QAM 06/01/16 [place] Carbonate 600 mg PO BEDTIME 10/30/16 Levothyroxine Sodium [Levoxyl] 100 mcg PO DAILY 10/10/18 Clindamycin HCl 300 mg PO QID #40 cap 11/10/18
== END 2018-11-10 18:30 | disposition home or self-care (01) ==
LOC: ER 17:26
DX: L02.611 Cutaneous abscess of right foot (principal); B35.3 Tinea pedis; R56.9 Unspecified convulsions; E07.9 Disorder of thyroid, unspecified; Z87.891 Personal history of nicotine dependence; Z79.899 Other long term (current) drug therapy; Z88.2 Allergy status to sulfonamides
CPT/HCPCS: 87070; 87205; J3490

== ENCOUNTER 2018-11-14 18:06 | Emergency (ER) | payer SELFPAY ==
[2018-11-14 18:26] VITALS: BP 152/85; TEMP 98.2; O2SAT 98
--- NOTE | 2018-11-14 18:26 | ED.PDOC ---
History of Present Illness - General Chief Complaint: Skin/Abrasion/Tear Stated Complaint: whelps and itching x one week Time Seen by Provider: 11/14/18 18:24 - History of Present Illness Initial Comments: c/o itchy rash all over the body since 1 wek : getting worse , no change in meds or any other things Timing/Duration: 1 week Improving Factors: nothing Worsening Factors: nothing Associated Symptoms: denies symptoms Allergies/Adverse Reactions: Allergies Clarithromycin [From Biaxin] Allergy (Verified 09/12/18 16:49) Vomitting Sulfa Antibiotics Allergy (Verified 09/12/18 16:49) Home Medications: Ambulatory Orders [place] Carbonate 300 mg PO QAM 06/01/16 [place] Carbonate 600 mg PO BEDTIME 10/30/16 Levothyroxine Sodium [Levoxyl] 100 mcg PO DAILY 10/10/18 Paroxetine HCl [Paxil] 40 mg PO DAILY 11/14/18 Permethrin 5% [Elimite] 1 applic TOP ONCE #1 appli 11/14/18 Prednisone 50 mg PO DAILY #3 tab 11/14/18 hydrOXYzine HCl [Atarax] 25 mg PO Q6HR #20 tab 11/14/18 Review of Systems - Review of Systems Constitutional: States: no symptoms reported EENTM: States: no symptoms reported Respiratory: States: no symptoms reported Cardiology: States: no symptoms reported Gastrointestinal/Abdominal: States: no symptoms reported Genitourinary: States: no symptoms reported Musculoskeletal: States: no symptoms reported Skin: States: see HPI Neurological: States: no symptoms reported Endocrine: States: no symptoms reported Hematologic/Lymphatic: States: no symptoms reported All other Systems: Reviewed and Negative Past Medical History (General) - Patient Medical History Hx Seizures: Yes Hx Stroke: No Hx Dementia: No Hx Asthma: No Hx of COPD: No Hx Cardiac Disorders: No Hx Congestive Heart Failure: No Hx Pacemaker: No Hx Hypertension: No Hx Thyroid Disease: Yes Hx Diabetes: No Hx Gastroesophageal Reflux: No Hx Renal Disease: No Hx Cancer: No Hx of HIV: No Hx Hepatitis C: No Hx MRSA: No - Vaccination History Hx Tetanus, Diphtheria Vaccination: No Hx Influenza Vaccination: No Hx Pneumococcal Vaccination: No - Social History Hx Tobacco Use: Yes Hx Chewing Tobacco Use: No Hx Alcohol Use: Yes Hx Substance Use: No Hx Substance Use Treatment: No Hx Depression: No Hx Physical Abuse: No Hx Emotional Abuse: No Hx Suspected Abuse: No - Female History Hx Last Menstrual Period: 02/20/17 - menopausal Patient : No Family Medical History - Family History Mother Family History: Unknown Living Status: Hx Family Asthma: Yes - copd-mom Hx Family Hypertension: Yes - sister Hx Cardiac Disease: Yes Hx Family Cancer: Yes - thyroid-sister Physical Exam - Physical Exam General Appearance: Alert Eye Exam: bilateral normal Ears, Nose, Throat: hearing grossly normal, normal ENT inspection, normal pharynx Neck: non-tender, full range of motion, supple Respiratory: normal breath sounds Cardiovascular/Chest: regular rate, rhythm Gastrointestinal/Abdominal: non tender Neurologic: no motor/sensory deficits, alert, normal mood/affect Skin Exam: normal color, warm/dry, rash - maculopapular rash all over the body Departure - Departure Clinical Impression: Pruritic rash Time of Disposition: 18:27 Disposition: Discharge to Home or Self Care Condition: Good Departure Forms: ED Discharge - Pt. Copy, Patient Portal Self Enrollment Diet: resume usual diet Activity: increase activity as tolerated, walking as tolerated Referrals: Shante Sigala NP [Primary Care Provider] - 1-2 Weeks Prescriptions: hydrOXYzine HCl [Atarax] 25 mg PO Q6HR #20 tab Permethrin 5% [Elimite] 1 applic TOP ONCE #1 appli Prednisone 50 mg PO DAILY #3 tab Home Medications: Ambulatory Orders [place] Carbonate 300 mg PO QAM 06/01/16 [place] Carbonate 600 mg PO BEDTIME 10/30/16 Levothyroxine Sodium [Levoxyl] 100 mcg PO DAILY 10/10/18 Paroxetine HCl [Paxil] 40 mg PO DAILY 11/14/18 Permethrin 5% [Elimite] 1 applic TOP ONCE #1 appli 11/14/18 Prednisone 50 mg PO DAILY #3 tab 11/14/18 hydrOXYzine HCl [Atarax] 25 mg PO Q6HR #20 tab 11/14/18 Comments: Refer to skin clinic Follow up PCP in 1-2 days
[2018-11-14] MEDS ORDERED: methylPREDNISolone SODIUM SUC 125 MG/2 ML VIAL IM ONE (18:32)
[2018-11-14] MEDS ORDERED: diphenhydrAMINE HCL 50 MG/ML VIAL IM ONE (18:32)
== END 2018-11-14 18:55 | disposition home or self-care (01) ==
LOC: ER 18:06
DX: R21 Rash and other nonspecific skin eruption (principal); R56.9 Unspecified convulsions; E07.9 Disorder of thyroid, unspecified; Z87.891 Personal history of nicotine dependence; Z79.899 Other long term (current) drug therapy; Z88.1 Allergy status to other antibiotic agents; Z88.2 Allergy status to sulfonamides
CPT/HCPCS: J1200; J2930

== ENCOUNTER → 2018-11-30 | Emergency (ER) | payer SELFPAY | LOC: ER 23:14 | DX: M79.671 Pain in right foot (principal); Z53.21 Procedure and treatment not carried out due to patient leaving prior to being seen by health care provider ==

== ENCOUNTER 2018-12-10 18:16 | Emergency (ER) | payer SELFPAY ==
--- NOTE | 2018-12-10 18:52 | ED.PDOC ---
History of Present Illness - General Stated Complaint: toe pain Time Seen by Provider: 12/10/18 18:35 - History of Present Illness Initial Comments: patient is a 48-year-old female who presents today with right foot little toe pain. She presented for the first time in August for after a fracture of the right fifth digit. She reports that she has been through 2 rounds of antibiotics, the last being over 1 month ago.she feels that it is infected again. For the past week she has had some swelling, redness, and pain in the fifth digit right foot. She does admits to itching between her toes as well. She has not had any fever or chills. Allergies/Adverse Reactions: Allergies Clarithromycin [From Biaxin] Allergy (Verified 09/12/18 16:49) Vomitting Sulfa Antibiotics Allergy (Verified 09/12/18 16:49) Home Medications: Ambulatory Orders [place] Carbonate 300 mg PO QAM 06/01/16 [place] Carbonate 600 mg PO BEDTIME 10/30/16 Levothyroxine Sodium [Levoxyl] 100 mcg PO DAILY 10/10/18 Paroxetine HCl [Paxil] 40 mg PO DAILY 11/14/18 Permethrin 5% [Elimite] 1 applic TOP ONCE #1 appli 11/14/18 Prednisone 50 mg PO DAILY #3 tab 11/14/18 hydrOXYzine HCl [Atarax] 25 mg PO Q6HR #20 tab 11/14/18 Amoxicillin & Pot Clavulanate [Augmentin Tab] 875 mg PO BID #20 tab 12/10/18 Terbinafine HCl (Topical) [Lamisil At Athletes Foot] 1 % TOP BID #30 cre 12/10/18 Review of Systems - Review of Systems Constitutional: States: no symptoms reported Gastrointestinal/Abdominal: States: no symptoms reported Musculoskeletal: States: no symptoms reported Skin: States: see HPI, other - redness and swelling in the medial aspect of the right foot fifth digit and web space Neurological: States: no symptoms reported Endocrine: States: no symptoms reported Hematologic/Lymphatic: States: no symptoms reported Past Medical History (General) - Patient Medical History Hx Seizures: Yes Hx Stroke: No Hx Dementia: No Hx Asthma: No Hx of COPD: No Hx Cardiac Disorders: No Hx Congestive Heart Failure: No Hx Pacemaker: No Hx Hypertension: No Hx Thyroid Disease: Yes Hx Diabetes: No Hx Gastroesophageal Reflux: No Hx Renal Disease: No Hx Cancer: No Hx of HIV: No Hx Hepatitis C: No Hx MRSA: No - Vaccination History Hx Tetanus, Diphtheria Vaccination: No Hx Influenza Vaccination: No Hx Pneumococcal Vaccination: No - Social History Hx Tobacco Use: Yes Hx Chewing Tobacco Use: No Hx Alcohol Use: Yes Hx Substance Use: No Hx Substance Use Treatment: No Hx Depression: No Hx Physical Abuse: No Hx Emotional Abuse: No Hx Suspected Abuse: No - Female History Hx Last Menstrual Period: 02/20/17 - menopausal Patient : No Family Medical History - Family History Mother Family History: Unknown Living Status: Hx Family Asthma: Yes - copd-mom Hx Family Hypertension: Yes - sister Hx Cardiac Disease: Yes Hx Family Cancer: Yes - thyroid-sister Physical Exam - Physical Exam General Appearance: Alert, No apparent distress, Unkempt Foot: infection, soft tissue tenderness, swelling, other - the right fifth digit of the foot reveals evidence of erythema and edema medially and into the webspace with maceration noted Neuro/Tendon: normal sensation, normal motor functions, normal tendon functions Mental Status: alert, oriented x 3 Skin: other - as reported above on foot examination Departure - Departure Clinical Impression: Tinea pedis of right foot, Superficial bacterial skin infection Tinea pedis Qualifiers: Laterality: right Qualified Code(s): B35.3 - Tinea pedis Time of Disposition: 19:12 Disposition: Discharge to Home or Self Care Condition: Good Departure Forms: ED Discharge - Pt. Copy, Patient Portal Self Enrollment Instructions: Ringworm, Athlete's Foot, and Jock Itch Referrals: Shante Sigala NP [Primary Care Provider] - 1-2 Weeks Prescriptions: Amoxicillin & Pot Clavulanate [Augmentin Tab] 875 mg PO BID #20 tab Terbinafine HCl (Topical) [Lamisil At Athletes Foot] 1 % TOP BID #30 cre Home Medications: Ambulatory Orders [place] Carbonate 300 mg PO QAM 06/01/16 [place] Carbonate 600 mg PO BEDTIME 10/30/16 Levothyroxine Sodium [Levoxyl] 100 mcg PO DAILY 10/10/18 Paroxetine HCl [Paxil] 40 mg PO DAILY 11/14/18 Permethrin 5% [Elimite] 1 applic TOP ONCE #1 appli 11/14/18 Prednisone 50 mg PO DAILY #3 tab 11/14/18 hydrOXYzine HCl [Atarax] 25 mg PO Q6HR #20 tab 11/14/18 Amoxicillin & Pot Clavulanate [Augmentin Tab] 875 mg PO BID #20 tab 12/10/18 Terbinafine HCl (Topical) [Lamisil At Athletes Foot] 1 % TOP BID #30 cre 12/10/18 Additional Instructions: Place cream in between toes twice a day and take oral antibiotic twice a day. Follow up with pcp in 2 weeks.
[2018-12-10] MEDS ORDERED: AMOXICILLIN & POT CLAVULANATE 875 MG TAB PO ONE (19:02)
[2018-12-10 19:23] VITALS: BP 118/85; TEMP 97.5; O2SAT 97
== END 2018-12-10 19:23 | disposition home or self-care (01) ==
LOC: ER 18:16
DX: B35.3 Tinea pedis (principal); L08.9 Local infection of the skin and subcutaneous tissue, unspecified; R56.9 Unspecified convulsions; E07.9 Disorder of thyroid, unspecified; Z87.891 Personal history of nicotine dependence; Z87.81 Personal history of (healed) traumatic fracture; Z79.899 Other long term (current) drug therapy; Z88.1 Allergy status to other antibiotic agents; Z88.2 Allergy status to sulfonamides

== ENCOUNTER 2019-03-17 15:29 | Emergency (ER) | payer SELFPAY ==
[2019-03-17 16:07] VITALS: TEMP 97
--- NOTE | 2019-03-17 16:51 | RAD ---
EXAM DESCRIPTION: Knee,Right 1 or 2 Views CLINICAL HISTORY: FALL COMPARISON: None. TECHNIQUE: 3 views right FINDINGS: Small quadriceps enthesophyte is observed in the patella. The exam of the knee is otherwise unremarkable. No fracture or joint effusion is detected. IMPRESSION: No fracturing is detected. Electronically signed by: López Figueroa MD 03/17/2019 4:[address] [facility]
--- NOTE | 2019-03-17 16:53 | RAD ---
EXAM DESCRIPTION: Ankle,Right 3 Views CLINICAL HISTORY: FALL COMPARISON: 12 May 2016 TECHNIQUE: 3 views right FINDINGS: Orthopedic hardware is observed from prior bimalleolar fracture of the right ankle. No hardware failure is seen. No evidence of loosening is detected. No acute injury is seen. The ankle mortise is intact. IMPRESSION: Prior ORIF of a bimalleolar fracture is observed. No acute injury is detected. Electronically signed by: López Figueroa MD 03/17/2019 4:51 PM [facility]
--- NOTE | 2019-03-17 16:56 | RAD ---
EXAM DESCRIPTION: Foot,Right 3 Views CLINICAL HISTORY: FALL COMPARISON: 26 Jun 2016 TECHNIQUE: 3 views right FINDINGS: The exam reveals evidence of prior orthopedic repair of a bimalleolar fracture. No new or acute injury is seen. IMPRESSION: No acute injury is detected. Electronically signed by: López Figueroa MD 03/17/2019 4:55 PM [facility]
--- NOTE | 2019-03-17 16:58 | RAD ---
EXAM DESCRIPTION: Hip,Right 2 Views CLINICAL HISTORY: FALL COMPARISON: 12 September 2018 TECHNIQUE: 2 views right FINDINGS: I see no bone joint or soft tissue abnormality. No fracturing is detected. IMPRESSION: Normal right hip. Electronically signed by: López Figueroa MD 03/17/2019 4:56 PM [facility]
[2019-03-17] MEDS ORDERED: traMADol HCL 50 MG TAB PO ONE (17:04)
--- NOTE | 2019-03-17 17:05 | ED.PDOC ---
History of Present Illness - General Chief Complaint: Lower Extremity Injury Stated Complaint: right leg pain from fall this morning Time Seen by Provider: 03/17/19 16:54 Source: patient Exam Limitations: no limitations - History of Present Illness Initial Comments: The patient is a 48-year-old female that apparently slipped and fell on the ice this morning. She is having pain extending from her right hip all the way down to her right ankle. The worst it is in the knee. She does appear to be neurovascularly preserved. She has had a surgical procedure in the past of the ankle. There is no obvious gross deformity. There is mild effusion around the right knee. Passive and active range of motion are preserved. In fact the patient did ambulate on the leg for the last 8 hours, since the incident. She appears to be neurovascularly at her baseline. No other significant injuries. Timing/Duration: other - 8 hours Severity: moderate Improving Factors: immobilization Worsening Factors: movement Associated Symptoms: denies symptoms Allergies/Adverse Reactions: Allergies Clarithromycin [From Biaxin] Allergy (Verified 03/17/19 16:02) Vomitting Sulfa Antibiotics Allergy (Verified 03/17/19 16:02) Home Medications: Ambulatory Orders [place] Carbonate 300 mg PO QAM 06/01/16 [place] Carbon[place] 600 mg PO BEDTIME 10/30/16 Levothyroxine Sodium [Levoxyl] 100 mcg PO DAILY 10/10/18 Paroxetine HCl [Paxil] 40 mg PO DAILY 11/14/18 Permethrin 5% [Elimite] 1 applic TOP ONCE #1 appli 11/14/18 Prednisone 50 mg PO DAILY #3 tab 11/14/18 hydrOXYzine HCl [Atarax] 25 mg PO Q6HR #20 tab 11/14/18 Amoxicillin & Pot Clavulanate [Augmentin Tab] 875 mg PO BID #20 tab 12/10/18 Terbinafine HCl (Topical) [Lamisil At Athletes Foot] 1 % TOP BID #30 cre 12/10/18 Tramadol HCl 50 mg PO Q8HR PRN #20 tab 03/17/19 Review of Systems - Review of Systems Constitutional: States: no symptoms reported EENTM: States: no symptoms reported Respiratory: States: no symptoms reported Cardiology: States: no symptoms reported Gastrointestinal/Abdominal: States: no symptoms reported Genitourinary: States: no symptoms reported Musculoskeletal: States: see HPI Skin: States: no symptoms reported Neurological: States: no symptoms reported Endocrine: States: no symptoms reported All other Systems: No Change from Baseline Past Medical History (General) - Patient Medical History Hx Seizures: No Hx Stroke: No Hx Dementia: No Hx Asthma: Yes Hx of COPD: No Hx Cardiac Disorders: No Hx Congestive Heart Failure: No Hx Pacemaker: No Hx Hypertension: No Hx Thyroid Disease: No Hx Diabetes: No Hx Gastroesophageal Reflux: No Hx Renal Disease: No Hx Cancer: No Hx of HIV: No Hx Hepatitis C: No Hx MRSA: No - Vaccination History Hx Tetanus, Diphtheria Vaccination: Yes Hx Influenza Vaccination: Yes Hx Pneumococcal Vaccination: No Immunizations Up to Date: No - Social History Hx Tobacco Use: Yes Hx Chewing Tobacco Use: No Hx Alcohol Use: No Hx Substance Use: No Hx Substance Use Treatment: No Hx Depression: No Feels Threatened In Home Enviroment: No Feels Threatened In a Relationship: No Hx Physical Abuse: No Hx Emotional Abuse: No Hx Suspected Abuse: No - Female History Hx Last Menstrual Period: 02/20/17 - menopausal Patient : No Family Medical History - Family History Mother Family History: Unknown Living Status: Hx Family Asthma: Yes - copd-mom Hx Family Congestive Heart Failure: No Hx Family Hypertension: Yes - sister Hx Cardiac Disease: Yes Hx Family Cancer: Yes - thyroid-sister Physical Exam - Physical Exam General Appearance: Alert, No apparent distress Eye Exam: bilateral normal Ears, Nose, Throat: hearing grossly normal Neck: non-tender, supple Respiratory: no respiratory distress, no accessory muscle use Cardiovascular/Chest: normal peripheral pulses, no edema Peripheral Pulses: radial,right: 2+, radial,left: 2+, dorsalis pedis,right: 2+, dorsalis pedis,left: 2+ Gastrointestinal/Abdominal: non tender, soft Rectal Exam: deferred Back Exam: no CVA tenderness, no vertebral tenderness Extremity: normal capillary refill, other - The patient has tenderness to palpation over the lateral aspect of the right hip but preserved active and passive range of motion. She has tenderness to palpation over the entirety of t he knee with mild effusion. Difficult to localize pain further here. Passive range of motion is preserved. No crepitus. She also has diffuse tenderness to palpation around the ankle but passive and active range of motion are preserved. Chronic scarring is present. 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 While she has pain that extends from the right hip all the way down through the right ankle, the worst of the pain seems to be surrounding the knee. The patient is going to be placed in a knee immobilizer. It is difficult to evaluate for localization of pain and ligamentous instability secondary to diffuse inflammation and discomfort at this time. She needs to be reevaluated in about a week to see if further intervention is going to be required. For now she can take Aleve 2 tablets twice a day with food. Additionally she will be written for some tramadol for as needed use. Most importantly, she does need to do stretching and range of motion exercises with the right lower extremity to prevent further cramping and reduce inflammation. This will be most effective in reducing her pain. Topical heat can be used in the form of icy hot or Biofreeze as well. She should expect to have pain in the right lower extremity for at least 2 weeks. X-rays of the right hip, right knee and right ankle show no evidence of any acute bony pathology. ER warnings are given. fu[id number] - Results/Orders Results/Orders: X-rays of the right knee, ankle, foot and hip show no evidence of any fracture dislocation. Departure - Departure Clinical Impression: Sprain of right knee Qualifiers: Encounter type: initial encounter Involved ligament of knee: unspecified ligament Qualified Code(s): S83.91XA - Sprain of unspecified site of right knee, initial encounter Disposition: Discharge to Home or Self Care Condition: Fair Departure Forms: ED Discharge - Pt. Copy, Patient Portal Self Enrollment Instructions: DI for Knee Pain Diet: regular diet Activity: increase activity as tolerated Referrals: Shante Sigala NP [Primary Care Provider] - 1-2 Weeks Prescriptions: Tramadol HCl 50 mg PO Q8HR PRN #20 tab PRN Reason: Moderate Pain Home Medications: Ambulatory Orders [place] Carbonate 300 mg PO QAM 06/01/16 [place] Carbon[place] 600 mg PO BEDTIME 10/30/16 Levothyroxine Sodium [Levoxyl] 100 mcg PO DAILY 10/10/18 Paroxetine HCl [Paxil] 40 mg PO DAILY 11/14/18 Permethrin 5% [Elimite] 1 applic TOP ONCE #1 appli 11/14/18 Prednisone 50 mg PO DAILY #3 tab 11/14/18 hydrOXYzine HCl [Atarax] 25 mg PO Q6HR #20 tab 11/14/18 Amoxicillin & Pot Clavulanate [Augmentin Tab] 875 mg PO BID #20 tab 12/10/18 Terbinafine HCl (Topical) [Lamisil At Athletes Foot] 1 % TOP BID #30 cre Tramadol HCl 50 mg PO Q8HR PRN #20 tab 03/17/19 Additional Instructions: The patient is a 48-year-old female presents emergency room secondary to pain that has continued to exacerbate throughout the day after a fall that occurred around 6 AM this morning. While she has pain that extends from the right hip all the way down through the right ankle, the worst of the pain seems to be surrounding the knee. The patient is going to be placed in a knee immobilizer. It is difficult to evaluate for localization of pain and ligamentous instability secondary to diffuse inflammation and discomfort at this time. She needs to be reevaluated in about a week to see if further intervention is going to be required. For now she can take Aleve 2 tablets twice a day with food. Additionally she will be written for some tramadol for as needed use. Most importantly, she does need to do stretching and range of motion exercises with the right lower extremity to prevent further cramping and reduce inflammation. This will be most effective in reducing her pain. Topical heat can be used in the form of icy hot or Biofreeze as well. She should expect to have pain in the right lower extremity for at least 2 weeks. X-rays of the right hip, right knee and right ankle show no evidence of any acute bony pathology. ER warnings are given.
[2019-03-17 17:24] VITALS: BP 124/87; O2SAT 100
== END 2019-03-17 17:23 | disposition home or self-care (01) ==
LOC: ER 15:29
DX: S83.91XA Sprain of unspecified site of right knee, initial encounter (principal); M25.552 Pain in left hip; M25.571 Pain in right ankle and joints of right foot; J45.909 Unspecified asthma, uncomplicated; Z79.899 Other long term (current) drug therapy; Z88.1 Allergy status to other antibiotic agents; Z88.2 Allergy status to sulfonamides; W00.0XXA Fall on same level due to ice and snow, initial encounter; Y92.9 Unspecified place or not applicable

== ENCOUNTER 2019-07-25 | Emergency (ER) | payer SELFPAY | END 2019-07-25 21:00 | disposition left against medical advice (07) ==

== ENCOUNTER 2019-11-06 19:59 | Emergency (ER) | payer SELFPAY ==
--- NOTE | 2019-11-06 20:12 | ED.PDOC ---
History of Present Illness - General Chief Complaint: Skin/Abrasion/Tear Time Seen by Provider: 11/06/19 20:00 Source: patient, RN notes reviewed, Vital Signs reviewed - History of Present Illness Initial Comments: 48 yo F who works in [employer] comes in with c/c of itchy rash on face, neck, chest and arms. Denies new detergents, soaps, makeup. no fever, no out door activity. no new medications. + itchy. Timing/Duration: yesterday Allergies/Adverse Reactions: Allergies Clarithromycin [From Biaxin] Allergy (Verified 03/17/19 16:02) Vomitting Sulfa Antibiotics Allergy (Verified 03/17/19 16:02) Home Medications: Ambulatory Orders [place] Carbonate 300 mg PO QAM 06/01/16 [place] 600 mg PO BEDTIME 10/30/16 Levothyroxine Sodium [Levoxyl] 100 mcg PO DAILY 10/10/18 Paroxetine HCl [Paxil] 40 mg PO DAILY 11/14/18 Permethrin 5% [Elimite] 1 applic TOP ONCE #1 appli 11/14/18 Prednisone 50 mg PO DAILY #3 tab 11/14/18 hydrOXYzine HCl [Atarax] 25 mg PO Q6HR #20 tab 11/14/18 Amoxicillin & Pot Clavulanate [Augmentin Tab] 875 mg PO BID #20 tab 12/10/18 Terbinafine HCl (Topical) [Lamisil At Athletes Foot] 1 % TOP BID #30 cre 12/10/18 Tramadol HCl 50 mg PO Q8HR PRN #20 tab 03/17/19 Permethrin 5% [Elimite] 60 gm TOP ONCE 1 Days #1 tube 11/06/19 Prednisone 20 mg PO BID #10 tab 11/06/19 Review of Systems - Review of Systems Constitutional: Denies: chills, fever EENTM: Denies: blurred vision, nose pain, nose congestion, throat swelling, mouth pain, mouth swelling Respiratory: Denies: cough, short of breath, stridor, wheezing Cardiology: Denies: chest pain, palpitations, syncope Gastrointestinal/Abdominal: Denies: abdominal pain, nausea, vomiting Genitourinary: Denies: frequency, hematuria Musculoskeletal: Denies: back pain, joint pain, joint swelling, muscle pain, muscle stiffness, neck pain Skin: States: rash Neurological: Denies: headache, numbness, tremors, weakness Endocrine: Denies: unexplained weight gain, unexplained weight loss Hematologic/Lymphatic: Denies: easy bleeding, easy bruising Past Medical History (General) - Patient Medical History Hx Seizures: No Hx Stroke: No Hx Dementia: No Hx Asthma: Yes Hx of COPD: No Hx Cardiac Disorders: No Hx Congestive Heart Failure: No Hx Pacemaker: No Hx Hypertension: No Hx Thyroid Disease: No Hx Diabetes: No Hx Gastroesophageal Reflux: No Hx Renal Disease: No Hx Cancer: No Hx of HIV: No Hx Hepatitis C: No Hx MRSA: No - Vaccination History Hx Tetanus, Diphtheria Vaccination: Yes Hx Influenza Vaccination: Yes Hx Pneumococcal Vaccination: No - Social History Hx Tobacco Use: Yes Hx Chewing Tobacco Use: No Hx Alcohol Use: No Hx Substance Use: No Hx Substance Use Treatment: No Hx Depression: No Hx Physical Abuse: No Hx Emotional Abuse: No Hx Suspected Abuse: No - Female History Hx Last Menstrual Period: 02/20/17 - menopausal Patient : No Family Medical History - Family History Mother Family History: Unknown Living Status: Hx Family Asthma: Yes - copd-mom Hx Family Congestive Heart Failure: No Hx Family Hypertension: Yes - sister Hx Cardiac Disease: Yes Hx Family Cancer: Yes - thyroid-sister Physical Exam - Physical Exam General Appearance: Alert, Comfortable, No apparent distress, Well Developed, Well Groomed, Well Hydrated, Well Nourished Eyes, Ears, Nose, Throat Exam: PERRL/EOMI Neck: non-tender, full range of motion, supple Cardiovascular/Chest: normal peripheral pulses, regular rate, rhythm, no edema Respiratory: chest non-tender, lungs clear, normal breath sounds, no respiratory distress, no accessory muscle use Gastrointestinal/Abdominal: normal bowel sounds, non tender Back Exam: normal inspection, no CVA tenderness Extremity: normal range of motion, non-tender, normal inspection 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 11/06/19 20:34 rash appears similar to bedbugs, but due to history of scabies, will treat for that as well. Will also give a course of steroids for the itching and inflammation. The data reviewed when caring for this patient included: nurse notes, prior records, etc. The history and assessments from nurses notes were reviewed and considered, and the patient's home medication list was also reviewed and considered. My assessment was discussed with the patient. All questions were answered, and she express understanding of my assessment and the plan. she have been instructed to return if their symptoms worsen, and have been asked to foll ow up with their primary care physician to recheck today's presenting complaint. Return precautions given. I have reviewed medication, benefits, alternatives and side effects. Patient decided to proceed with medication.Veronica Hernández DO #801 Departure - Departure Clinical Impression: Rash Time of Disposition: 20:20 Disposition: Discharge to Home or Self Care Departure Forms: ED Discharge - Pt. Copy, Patient Portal Self Enrollment Instructions: DI for Abrasion, Contact Dermatitis (DC), Skin Rash (DC), Bedbugs, Scabies (DC) Referrals: Shante Sigala, CONSTANZA [Primary Care Provider] - 1 Week Prescriptions: Permethrin 5% [Elimite] 60 gm TOP ONCE 1 Days #1 tube Prednisone 20 mg PO BID #10 tab Home Medications: Ambulatory Orders [place] Carbon[place] 300 mg PO QAM 06/01/16 [place] 600 mg PO BEDTIME 10/30/16 Levothyroxine Sodium [Levoxyl] 100 mcg PO DAILY 10/10/18 Paroxetine HCl [Paxil] 40 mg PO DAILY 11/14/18 Permethrin 5% [Elimite] 1 applic TOP ONCE #1 appli 11/14/18 Prednisone 50 mg PO DAILY #3 tab 11/14/18 hydrOXYzine HCl [Atarax] 25 mg PO Q6HR #20 tab 11/14/18 Amoxicillin & Pot Clavulanate [Augmentin Tab] 875 mg PO BID #20 tab 12/10/18 Terbinafine HCl (Topical) [Lamisil At Athletes Foot] 1 % TOP BID #30 cre 12/10/18 Tramadol HCl 50 mg PO Q8HR PRN #20 tab 03/17/19 Permethrin 5% [Elimite] 60 gm TOP ONCE 1 Days #1 tube 11/06/19 Prednisone 20 mg PO BID #10 tab 11/06/19
[2019-11-06] MEDS ORDERED: predniSONE 20 MG TAB PO ONE (20:24)
[2019-11-06 20:38] VITALS: BP 117/80; TEMP 96.5
[2019-11-06 20:39] VITALS: O2SAT 98
== END 2019-11-06 20:39 | disposition home or self-care (01) ==
LOC: ER 19:59
DX: R21 Rash and other nonspecific skin eruption (principal); J45.909 Unspecified asthma, uncomplicated; Z87.891 Personal history of nicotine dependence; Z79.899 Other long term (current) drug therapy; Z88.1 Allergy status to other antibiotic agents; Z88.2 Allergy status to sulfonamides

== ENCOUNTER 2020-02-05 16:36 | Emergency (ER) | payer SELFPAY ==
[2020-02-05] MEDS ORDERED: KETOROLAC TROMETHAMINE INJ 30 MG/ML VIAL IM ONE (16:57)
[2020-02-05] MEDS ORDERED: diazePAM 5 MG TAB PO ONE (16:57)
--- NOTE | 2020-02-05 16:59 | ED.PDOC ---
History of Present Illness - General Chief Complaint: General Stated Complaint: routine home medication Time Seen by Provider: 02/05/20 16:38 Source: patient, RN notes reviewed, Vital Signs reviewed, old records Exam Limitations: no limitations - History of Present Illness Initial Comments: 49 yo F with left sided neck pain x 5 days. no injury. Saw pcp was given steroids, but pain continues. States she tried tylenol, biofreeze without any improvement. worse with rotation left and right. Timing/Duration: 1 week Severity: moderate Improving Factors: immobilization Worsening Factors: movement Allergies/Adverse Reactions: Allergies Clarithromycin [From Biaxin] Allergy (Verified 03/17/19 16:02) Vomitting Sulfa Antibiotics Allergy (Verified 03/17/19 16:02) Home Medications: Ambulatory Orders [place] Carbonate 300 mg PO QAM 06/01/16 [place] Carbon[place] 600 mg PO BEDTIME 10/30/16 Levothyroxine Sodium [Levoxyl] 100 mcg PO DAILY 10/10/18 Paroxetine HCl [Paxil] 40 mg PO DAILY 11/14/18 Permethrin 5% [Elimite] 1 applic TOP ONCE #1 appli 11/14/18 Prednisone 50 mg PO DAILY #3 tab 11/14/18 hydrOXYzine HCl [Atarax] 25 mg PO Q6HR #20 tab 11/14/18 Amoxicillin & Pot Clavulanate [Augmentin Tab] 875 mg PO BID #20 tab 12/10/18 Terbinafine HCl (Topical) [Lamisil At Athletes Foot] 1 % TOP BID #30 cre 12/10/18 Tramadol HCl 50 mg PO Q8HR PRN #20 tab 03/17/19 Permethrin 5% [Elimite] 60 gm TOP ONCE 1 Days #1 tube 11/06/19 Prednisone 20 mg PO BID #10 tab 11/06/19 Cyclobenzaprine HCl [Flexeril] 10 mg PO TID PRN #12 tab 02/05/20 Ibuprofen 800 mg PO TID PRN #30 tab 02/05/20 Magnesium Oxide (mg Supplement [Magnesium Oxide] 400 mg PO DAILY #14 tab 02/05/20 Review of Systems - Review of Systems Constitutional: Denies: chills, fever EENTM: States: ear pain. Denies: blurred vision, double vision, throat pain, mouth pain Respiratory: Denies: cough, short of breath Cardiology: Denies: chest pain Gastrointestinal/Abdominal: Denies: abdominal pain Musculoskeletal: States: muscle pain, neck pain. Denies: back pain Skin: Denies: change in color, rash Neurological: Denies: headache, numbness, paresthesia, tingling, tremors, weakness Endocrine: Denies: unexplained weight loss Hematologic/Lymphatic: Denies: easy bleeding, easy bruising Past Medical History (General) - Patient Medical History Hx Seizures: No Hx Stroke: No Hx Dementia: No Hx Asthma: Yes Hx of COPD: No Hx Cardiac Disorders: No Hx Congestive Heart Failure: No Hx Pacemaker: No Hx Hypertension: No Hx Thyroid Disease: No Hx Diabetes: No Hx Gastroesophageal Reflux: No Hx Renal Disease: No Hx Cancer: No Hx of HIV: No Hx Hepatitis C: No Hx MRSA: No - Vaccination History Hx Tetanus, Diphtheria Vaccination: Yes Hx Influenza Vaccination: Yes Hx Pneumococcal Vaccination: No - Social History Hx Tobacco Use: Yes Hx Chewing Tobacco Use: No Hx Alcohol Use: No Hx Substance Use: No Hx Substance Use Treatment: No Hx Depression: No Hx Physical Abuse: No Hx Emotional Abuse: No Hx Suspected Abuse: No - Female History Hx Last Menstrual Period: 02/20/17 - menopausal Patient : No Family Medical History - Family History Mother Family History: Unknown Living Status: Hx Family Asthma: Yes - copd-mom Hx Family Congestive Heart Failure: No Hx Family Hypertension: Yes - sister Hx Cardiac Disease: Yes Hx Family Cancer: Yes - thyroid-sister Physical Exam - Physical Exam General Appearance: Alert, Comfortable, No apparent distress, Well Developed, Well Groomed, Well Hydrated, Well Nourished Eye Exam: bilateral normal Ears, Nose, Throat: hearing grossly normal, normal ENT inspection, normal pharynx, other - normal TM Neck: non-tender, full range of motion, supple, normal inspection, other - left trapezius muscle spasm Respiratory: chest non-tender, lungs clear, normal breath sounds, no respiratory distress, no accessory muscle use Cardiovascular/Chest: normal peripheral pulses, regular rate, rhythm, no edema, no gallop, no JVD, no murmur Peripheral Pulses: radial,right: 2+, radial,left: 2+ Gastrointestinal/Abdominal: normal bowel sounds, non tender, soft, no organomegaly, no pulsatile mass Rectal Exam: deferred Back Exam: normal inspection, no CVA tenderness, no vertebral tenderness Extremity: normal range of motion, non-tender, normal inspection, no pedal edema, no calf tenderness, normal capillary refill 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 The data reviewed when caring for this patient included: nurse notes, prior records, etc. The history and assessments from nurses notes were reviewed and considered, and the patient's home medication list was also reviewed and considered. My assessment and the results of testing completed here in the ED were discussed with the patient. All questions were answered, and they express understanding of my assessment and the plan. They have been instructed to return if their symptoms worsen, and have been asked to follow up with their primary care physician to recheck today's presenting complaint. Strict return precautions given. I have reviewed medication, benefits, alternatives and side effects. Patient decided to proceed with medication. Veronica Hernández DO #801 Departure - Departure Clinical Impression: Muscle spasm Neck strain Qualifiers: Encounter type: initial encounter Qualified Code(s): S16.1XXA - Strain of muscle, fascia and tendon at neck level, initial encounter Time of Disposition: 16:58 Disposition: Discharge to Home or Self Care Departure Forms: ED Discharge - Pt. Copy, Patient Portal Self Enrollment Instructions: Neck Pain, Muscle Spasms (DC) Diet: resume usual diet Activity: increase activity as tolerated Referrals: Agustina Nunez NP [Primary Care Provider] - 1-5 Days Prescriptions: Cyclobenzaprine HCl [Flexeril] 10 mg PO TID PRN #12 tab PRN Reason: Muscle Spasms Ibuprofen 800 mg PO TID PRN #30 tab PRN Reason: Pain Magnesium Oxide (mg Supplement [Magnesium Oxide] 400 mg PO DAILY #14 tab Home Medications: Ambulatory Orders [place] Carbon[place] 300 mg PO QAM 06/01/16 [place] 600 mg PO BEDTIME 10/30/16 Levothyroxine Sodium [Levoxyl] 100 mcg PO DAILY 10/10/18 Paroxetine HCl [Paxil] 40 mg PO DAILY 11/14/18 Permethrin 5% [Elimite] 1 applic TOP ONCE #1 appli 11/14/18 Prednisone 50 mg PO DAILY #3 tab 11/14/18 hydrOXYzine HCl [Atarax] 25 mg PO Q6HR #20 tab 11/14/18 Amoxicillin & Pot Clavulanate [Augmentin Tab] 875 mg PO BID #20 tab 12/10/18 Terbinafine HCl (Topical) [Lamisil At Athletes Foot] 1 % TOP BID #30 cre 12/10/18 Tramadol HCl 50 mg PO Q8HR PRN #20 tab 03/17/19 Permethrin 5% [Elimite] 60 gm TOP ONCE 1 Days #1 tube 11/06/19 Prednisone 20 mg PO BID #10 tab 11/06/19 Cyclobenzaprine HCl [Flexeril] 10 mg PO TID PRN #12 tab 02/05/20 Ibuprofen 800 mg PO TID PRN #30 tab 02/05/20 Magnesium Oxide (mg Supplement [Magnesium Oxide] 400 mg PO DAILY #14 tab 01/10 08/28
[2020-02-05 17:09] VITALS: BP 155/96; TEMP 98.3; O2SAT 99
== END 2020-02-05 17:24 | disposition home or self-care (01) ==
LOC: ER 16:36
DX: S16.1XXA Strain of muscle, fascia and tendon at neck level, initial encounter (principal); J45.909 Unspecified asthma, uncomplicated; Z87.891 Personal history of nicotine dependence; Z88.1 Allergy status to other antibiotic agents; Z88.2 Allergy status to sulfonamides; X58.XXXA Exposure to other specified factors, initial encounter; Y92.9 Unspecified place or not applicable